=== PATIENT | female | born 1970 | race Caucasian/White ===

== ENCOUNTER 2018-05-03 07:24 | Emergency (ER) | payer OTHER, SELFPAY ==
[2018-05-03 07:25] VITALS: BP 141/92; PULSE 81; RESP 18; TEMP 36.7; O2SAT 100; BMI 21.3
--- NOTE | 2018-05-03 07:51 | EKG12_ITS ---
Test Reason : CP Blood Pressure : / mmHG Vent. Rate : 067 BPM Atrial Rate : 067 BPM P-R Int : 136 ms QRS Dur : 080 ms QT Int : 380 ms P-R-T Axes : 075 034 048 degrees QTc Int : 401 ms Normal sinus rhythm Normal ECG Confirmed by SUSHIL GAY, ALFA ([id number]), digital editor TERESITA MCGARRY ([id number]) on 05/06/2018 1:14:48 PM Referred By: RAPHAEL Confirmed By:ALFA LING MD
--- NOTE | 2018-05-03 07:51 | RAD_ITS ---
STUDY: X-RAY CHEST REASON FOR EXAM: Female, 47 years old. 12 hour history of chest pain. TECHNIQUE: Single AP portable view of the chest. Comparison is made with prior study dated October 04, 2013. COMPARISON: None. FINDINGS: The lungs are clear and expanded. There is no demonstrated pleural abnormality. Normal size heart. Normal mediastinum and wilberto. Normal visualized pulmonary arteries. Normal visualized aortic arch and descending thoracic aorta. Normal visualized thoracic spine. Normal visualized ribs, clavicles, and shoulders. There is no demonstrated abnormality of the visualized soft tissue structures of the upper abdomen. RAD/Chest 1 View (Portable) IMPRESSION: Normal x-ray examination of the chest. Electronically Signed: Anthony Tran MD at 8:31 EDT Tel [phone], Service support ,
[2018-05-03 08:00] LABS: Absolute Lymphocyte Count 2.56 X10^3/ul (0.83-4.51); Basophil# 0.08 X10^3/uL; Basophil% 0.9 % (0-1); Eosinophil# 0.25 X10^3/uL; Eosinophils% 2.8 % (0-5); Hematocrit 44.5 % (37-47); Hemoglobin 15.4 g/dl (12.0-15.0); Lymphocyte # 2.56 X10^3/ul (4.0); Lymphocyte % 28.8 % (19-41); Mean Corp Hgb Conc 34.6 g/gl (32-36); Mean Corpuscular Hgb 31.8 pg (27.0-32.0); Mean Corpuscular Volume 91.8 fL (81-99); Mean Platelet Vol. 9.1 fl (6.2-12.0); Monocyte% 11.2 % (0-10); Neutrophil # 4.99 X10^3/uL (2.7-7.7); Neutrophil % 56.2 % (47-70); Platelet Count 297 K/mm3 (150-450); RBC Distribution Width CV 12.9 % (11.6-14.6); RBC Distribution Width SD 43.2 fl (35.1-43.9); Red Blood Count 4.85 M/mm3 (4.2-5.4); White Blood Count 8.9 K/mm3 (4.4-11.0)
[2018-05-03 08:01] LABS: POSITIVE COUNT NO; POSITIVE DIFFERENTIAL NO; POSITIVE MORPHOLOGY NO
[2018-05-03] MEDS: Aspirin 81 MG TAB.CHEW 324 MG PO (08:06)
[2018-05-03 08:13] LABS: Anion Gap 8 (5-15); BUN 14 mg/dL (7-18); BUN/Creat Ratio 16.8 RATIO (10-20); Calcium,Total 9.2 mg/dL (8.5-10.1); Chloride 105 mmol/L (98-107); Creatinine, Serum 0.83 mg/dL (0.55-1.02); EST Glomerular Filtration Rate 78 mL/min (>60); Est Glom Filt Rate - Afr Amer 94 mL/min (>60); Estimated Creatinine Clearance 78.44 ml/min; Glucose 89 mg/dL (74-106); Potassium 3.6 mmol/L (3.5-5.1); Sodium Level 140 mmol/L (136-145)
--- NOTE | 2018-05-03 08:22 | ED.VISSUMM ---
- ER Visit Summary Date of Service: 05/03/18 Chief Complaint: Chest pain History of Present Illness: The patient is a 47 F presents with chest pain for the past 11 hours. It is mostly in her left shoulder and extending into the left side of the chest. It is an ache. It is not pleuritic. She has no PE risk factors. PERC negative. She has no shortness of breath or cough. She is a smoker and has a family history of cardiac disease. Patient has no medical problems. Physical Examination: Not appear in acute distress. Moist mucous membranes, no obvious facial deformity No C-spine tenderness supple neck. Regular rate and rhythm without any obvious murmurs there is left-sided chest wall and left shoulder tenderness to palpation which is quite reproducible and mechanical. Clear lungs bilaterally speaking in full sentences without any obvious respiratory distress Abdomen soft and nontender no guarding or rebound Moves all extremities without any difficulty or pain. Skin does not show any obvious rashes or lesions, no trauma. Alert oriented ?3 with no gross focal deficit Emergency Department Course and Treatment: Patient has a PARRIS score of 0. HAART score of 2. She is low risk for adverse cardiac events in the next 30 days. I will follow her up with cardiology. If her symptoms worsen she needs to return. At this time she is low risk, has reproducible pain without any PE risk factors she is quite trustworthy and if anything worsens or changes she will return. Disposition: Discharged in stable condition Impression: Chest pain Chest wall pain This note was generated with [employer] dictation software. It may contain incorrect words, spelling, and punctuation that were not noted in review of the chart prior to signing ED Disposition - Plan for ED Patient: Chief Complaint: Chest Pain Referrals: Yon Farnsworth DO [Primary Care Provider] -
--- NOTE | 2018-05-03 08:48 | ED.DEP ---
ED Disposition - Plan for ED Patient: Disposition: Home or Assisted Living Chief Complaint: Chest Pain Instructions: ED Chest Pain Atypical Unkn Cause Prescriptions: Naproxen [Naprosyn] 500 mg PO BID PRN #20 tab Referrals: Akhil Roberts MD [STAFF PHYSICIAN] - 3-5 Days
--- NOTE | 2018-05-03 08:51 | ED.DCSUM_ITS ---
- ER Visit Summary Date of Service: 05/03/18 Chief Complaint: [] History of Present Illness: The patient is a 47 F [] Physical Examination: [] Test Results: [] Emergency Department Course and Treatment: [] Treatment Plan: [] Disposition: [] Impression: [] This note was generated with [employer] dictation software. It may contain incorrect words, spelling, and punctuation that were not noted in review of the chart prior to signing ED Disposition - Plan for ED Patient: Disposition: Home or Assisted Living Chief Complaint: Chest Pain Instructions: ED Chest Pain Atypical Unkn Cause Prescriptions: Naproxen [Naprosyn] 500 mg PO BID PRN #20 tab Referrals: Akhil Roberts MD [STAFF PHYSICIAN] - 3-5 Days
[2018-05-03] MEDS: Ketorolac 30 MG/ML Syringe 15 MG IV (08:55)
[2018-05-03 09:02] VITALS: BP 133/79; PULSE 84; RESP 18
== END 2018-05-03 09:14 | disposition home or self-care (01) ==
PROVIDERS: Emergency Provider Emergency Medicine; Family Provider Student in an Organized Health Care Education/Training Program; PCP Student in an Organized Health Care Education/Training Program
DX: R07.89 Other chest pain (principal); F17.200 Nicotine dependence, unspecified, uncomplicated; Z82.49 Family history of ischemic heart disease and other diseases of the circulatory system
CPT/HCPCS: 71045; 80048; 84484; 85025; 93005; 96374; 99285; A4216

== ENCOUNTER → 2018-05-07 07:04 | Outpatient (CLI) | payer OTHER, SELFPAY ==
--- NOTE | 2018-05-07 14:16 | STRESSREP_ITS ---
Stress Test Report Exercise myocardial perfusion stress test. 47-year-old lady with a history of chest pain. Stress protocol: Resting EKG demonstrates sinus bradycardia with a rate of 55 bpm normal intervals and noted resting blood pressure is 122/72 mmHg. The patient exercised according to regular Arnol protocol for total duration of 10 minutes and 30 seconds completing 1 minute and 30 seconds of stage IV of the Arnol protocol. The maximum heart rate was 166 bpm which was 95% of maximum predicted heart rate the maximum workload was 12.5 metabolic equivalents. At rest there were no ST or T-wave changes noted suggest ischemia at peak exercise no ST or T-wave changes were noted suggest ischemia. No clinical angina was noted. The resting blood pressure is 122/72 with a peak blood pressure 160/70. Myocardial perfusion protocol. 11.1 mCi of technetium 99m sestamibi was injected at rest. The patient exercised according to Arnol protocol for 10 minutes and 30 seconds attaining 95 % of maximum predicted heart rate the maximum workload was 12.5 metabolic equivalents. At peak exercise 32.9 mCi of technetium 99m sestamibi was injected stress images were obtained stress and rest images were reconstructed and compared in the short axis vertical long and horizontal long axis. Gated images were also obtained pre- Perfusion SPECT analysis: Review of the stress images demonstrate normal uptake of tracer noted in all areas of the myocardium. The resting images similarly demonstrate normal uptake of tracer noted in all areas of the myocardium. No reversibility is noted suggest ischemia no previous infarct is noted. Gated SPECT analysis: The gated ejection fraction is noted to be 63%. Conclusion: Normal exercise myocardial perfusion stress test with no evidence of ischemia at a high workload. Preserved ejection fraction. Excellent functional capacity.
== END ==
LOC: CVS 07:04
PROVIDERS: Family Provider Student in an Organized Health Care Education/Training Program; PCP Student in an Organized Health Care Education/Training Program; Visit Provider Internal Medicine Cardiovascular Disease
DX: R07.9 Chest pain, unspecified (principal)
CPT/HCPCS: 78452; 93017; A9500; A4216

== ENCOUNTER 2018-07-26 21:11 | Emergency (ER) | payer OTHER, SELFPAY ==
[2018-07-26 21:12] VITALS: BP 139/90; PULSE 69; RESP 17; TEMP 36.7; O2SAT 98; BMI 21.8
--- NOTE | 2018-07-26 21:26 | EKG12_ITS ---
Test Reason : CP Blood Pressure : / mmHG Vent. Rate : 067 BPM Atrial Rate : 067 BPM P-R Int : 148 ms QRS Dur : 074 ms QT Int : 394 ms P-R-T Axes : 053 040 048 degrees QTc Int : 416 ms Normal sinus rhythm Normal ECG Confirmed by TATO GAY, KALIE ([id number]), supervising editor news reel TERESITA MCGARRY ([id number]) on 08/04/2018 3:34:55 PM Referred By: ELODIA/NANI Confirmed By:KALIE GODWIN MD
--- NOTE | 2018-07-26 21:26 | RAD_ITS ---
STUDY: X-RAY CHEST REASON FOR EXAM: Female, 47 years old. Chest pain TECHNIQUE: Frontal view of the chest COMPARISON: 05/03/2018 FINDINGS: The lungs are clear. There are no pleural effusions. There is no pneumothorax. The heart is normal in size. The visualized osseous structures are within normal limits. RAD/Chest 1 View (Portable) IMPRESSION: No acute thoracic pathology. Electronically Signed: Mick Love, at 22:00 EDT Tel , Service support ,
[2018-07-26 21:40] VITALS: O2SAT 98
[2018-07-26 21:51] LABS: Absolute Lymphocyte Count 2.54 X10^3/ul (0.83-4.51); Absolute Neutrophil Count 4.7 X10^3/uL (2.0-7.7); Basophil# 0.05 X10^3/uL; Basophil% 0.6 % (0-1); Eosinophil# 0.22 X10^3/uL; Eosinophils% 2.7 % (0-5); Hematocrit 36.3 % (37-47); Hemoglobin 12.7 g/dl (12.0-15.0); Lymphocyte # 2.54 X10^3/ul (4.0); Mean Corpuscular Hgb 31.6 pg (27.0-32.0); Mean Corpuscular Volume 90.3 fL (81-99); Monocyte# 0.71 X10^3/uL; Monocyte% 8.7 % (0-10); Neutrophil # 4.66 X10^3/uL (2.7-7.7); Neutrophil % 56.8 % (47-70); Platelet Count 232 K/mm3 (150-450); RBC Distribution Width CV 12.6 % (11.6-14.6); RBC Distribution Width SD 41.8 fl (35.1-43.9); Red Blood Count 4.02 M/mm3 (4.2-5.4); White Blood Count 8.2 K/mm3 (4.4-11.0)
[2018-07-26 21:52] LABS: POSITIVE COUNT NO; POSITIVE DIFFERENTIAL NO; POSITIVE MORPHOLOGY NO
[2018-07-26 22:09] LABS: Anion Gap 7 (5-15); BUN 10 mg/dL (7-18); BUN/Creat Ratio 14.5 RATIO (10-20); Calcium,Total 8.4 mg/dL (8.5-10.1); Chloride 109 mmol/L (98-107); Creatinine, Serum 0.69 mg/dL (0.55-1.02); EST Glomerular Filtration Rate 97 mL/min (>60); Est Glom Filt Rate - Afr Amer 117 mL/min (>60); Estimated Creatinine Clearance 94.36 ml/min; Glucose 92 mg/dL (74-106); Potassium 3.4 mmol/L (3.5-5.1); Sodium Level 141 mmol/L (136-145)
[2018-07-26] MEDS: Famotidine 20 MG Tablet 40 MG PO (22:46)
--- NOTE | 2018-07-26 22:48 | ED.VISSUMM ---
- ER Visit Summary Date of Service: 07/26/18 Chief Complaint: Chest pain History of Present Illness: The patient is a 47 F brought in by EMS for chest pain. Patient states she bent over and had onset of what felt like reflux. She did not feel well following this and sat down. She states she felt short of breath, some chest tightness, and her heart rate was approximately 100. She states her normal heart rate is in the 50s-60s. She did note some tingling in her hands. The symptoms lasted approximate 15 minutes and then completely resolved. Patient has not felt well for approximately last 6 weeks. She is been following up with [facility] for an ovarian cyst. Her only complaint at this time is some mild lower abdominal pain that she has had. Patient is a family history of [id number]. She has had stress test and cardiac cath in the past. She states she just had a stress test in April that was unremarkable. Physical Examination: Vital signs are unremarkable. Patient sitting upright in bed no acute distress. Head neck examination is normal. Heart is regular rate and rhythm. Lung sounds are clear. Abdomen is soft with no focal tenderness to palpation. Bowel sounds are noted throughout. Test Results: Portable chest x-ray shows no acute pathology. EKG is sinus at 67 with no sign of acute ischemia. CBC is unremarkable. Chemistry studies were potassium 3.4, otherwise normal. Troponin is less than 0.015. Emergency Department Course and Treatment: Patient was given aspirin with EMS. She had no further chest pain here. Patient has been taking ibuprofen intermittently for her ovarian cyst and states she did not eat anything today. I was able to review her stress test from May 07 of this year that was unremarkable. I discussed with patient and at bedside I believe she likely does have reflux. She be started on Prilosec. She is given 40 mEq of potassium chloride here. Patient will follow with her primary care physician. Treatment Plan: [] Disposition: Discharge Impression: GERD This note was generated with [employer] dictation software. It may contain incorrect words, spelling, and punctuation that were not noted in review of the chart prior to signing ED Disposition - Plan for ED Patient: Disposition: Home or Assisted Living Chief Complaint: Chest Pain Instructions: ED GERD Prescriptions: Omeprazole [Prilosec] 20 mg PO DAILY #20 capsule Referrals: Yon Farnsworth, [Primary Care Provider] - As soon as possible
--- NOTE | 2018-07-26 22:48 | ED.DEP ---
ED Disposition - Plan for ED Patient: Disposition: Home or Assisted Living Chief Complaint: Chest Pain Instructions: ED GERD Prescriptions: Omeprazole [Prilosec] 20 mg PO DAILY #20 capsule Referrals: Yon Farnsworth DO [Primary Care Provider] - As soon as possible
[2018-07-26 22:58] VITALS: BP 125/80; PULSE 75; RESP 15; O2SAT 98
== END 2018-07-26 23:04 | disposition home or self-care (01) ==
PROVIDERS: Emergency Medicine; Emergency Provider Emergency Medicine; Family Provider Student in an Organized Health Care Education/Training Program; PCP Student in an Organized Health Care Education/Training Program
DX: K21.9 Gastro-esophageal reflux disease without esophagitis (principal); Z72.0 Tobacco use
CPT/HCPCS: 71045; 80048; 84484; 85025; 93005; 99285; A4216

== ENCOUNTER 2018-09-09 08:34 | Day surgery (SDC) | payer OTHER, SELFPAY ==
[2018-09-09] VITALS (8 sets, daily range): BP systolic 120–154; BP diastolic 72–86; PULSE 52–59; RESP 16; TEMP 36.3–36.9; O2SAT 99–100; BMI 21.4
[2018-09-09 08:55] LABS: Internal QC Validated? YES +Cl - CLEAR BKGD; Pregnancy, Urine Negative Negative
[2018-09-09 09:02] LABS: Hematocrit 43.8 % (37-47); Hemoglobin 15.2 g/dl (12.0-15.0); Mean Corp Hgb Conc 34.7 g/gl (32-36); Mean Corpuscular Hgb 31.9 pg (27.0-32.0); Mean Corpuscular Volume 91.8 fL (81-99); Mean Platelet Vol. 8.8 fl (6.2-12.0); Platelet Count 296 K/mm3 (150-450); RBC Distribution Width CV 12.8 % (11.6-14.6); RBC Distribution Width SD 42.4 fl (35.1-43.9); Red Blood Count 4.77 M/mm3 (4.2-5.4); White Blood Count 6.9 K/mm3 (4.4-11.0)
[2018-09-09 09:03] LABS: Scan Indicated on CBC? Y/N NO
--- NOTE | 2018-09-09 10:25 | FALS_PTH ---
PATIENT: NORMA ROCHA LOC: [facility] – [place] U#:[id number] AGE/SX: 48/F ROOM: RE09/09/[address]: Dr. Alicia Crawford, MDDOB: 1970 BED: DIS: 09/09/2018 SPEC #: [id number] RECD: 09/09/18 12:33 STATUS: ELIZABET REStefani #: [id number] MARIA ISABEL: 09/09/18 10:[address]: Alicia Crawford DEPT: SURGICAL PATHOLOGY RECD BY: Stacie Houston ENTERED: 09/09/18 15:44 SP TYPE: FALL TUBES OTHR DR: Dr. Yon Farnsworth DO Tissues: Fallopian tube Procedures: Surgery Specimen Level II HEADER OPERATION: Laparoscopic bilateral salpingectomy PRE-OP DIAGNOSIS: Pelvic pain, right ovarian cyst, hydrosalpinx TISSUE SUBMITTED: Bilateral fallopian tubes MICROSCOPIC DIAGNOSIS Bilateral fallopian tube, salpingectomy: Larger fallopian tube - hydrosalpinx. Smaller fallopian tube - no pathologic diagnosis. Paratubal cyst. ROBE:lucien 09/10/18 MICROSCOPIC DESCRIPTION Slides are reviewed. GROSS DESCRIPTION Received in fixative is one container labeled with the patient's name and designated bilateral fallopian tubes. The specimen consists of bilateral fallopian tubes including fimbrial ends, One of the fallopian tubes measure 5 cm in length and up to 1 cm in diameter. The second fallopian tube measures 3 cm in length and 1 cm in diameter. Also present in the container is a cyst measuring 2 x 1 x 0.1 cm. The attached portion of the fallopian tube to the cyst measures 0.8 cm in length and 0.3 cm in diameter. Section of the larger fallopian tube showed dilated lumen filled with clear fluid. The second fallopian tube do not reveal any mass lesion. [employer] sections are submitted in 4 cassettes as follows: 1 & 2 - larger fallopian tube, 3 & 4- smaller fallopian tube and paratubal cyst, entirely submitted. /ROBE:lucien 09/09/18 TC: 5 CPT: 95727 x2
[2018-09-09] MEDS: Bupivacaine Mpf 0.5% 30 ML VIAL (12:20)
--- NOTE | 2018-09-09 12:31 | PCM.OPRPT ---
Report of Operation Date of Procedure: 09/09/18 Pre-Operative Diagnosis: right hydrosalpinx, right ovarian cyst Post-Operative Diagnosis: bilateral hydrosalpinx, right paratubal cyst, omental adhesions Surgery/Procedure Performed:: laparascopic bilateral salpingectomy, lysis of adhesions Description of Surgical Findings:: Omental adhesions to anterior abdominal wall. Large bilateral hydrosalpinx. NOrmal ovaries . Type of Anesthesia:: General Specimen's removed: Bilateral fallopian tubes, right paratubal cyst Estimated Blood Loss (mL): 10 Fluids Replaced: 1000cc Description of Procedure: Operative note: After informed consent was obtained patient was taken to the operating room she was placed in supine position she was given anesthesia. She was then placed in the [facility] stirrups and she was prepped and draped in normal sterile fashion. Bladder was drained prior to the start of procedure approximately 100 cc of clear yellow urine was expelled. At this time attention was turned to the vaginal portion where weighted speculum placed at posterior fornix vagina single-tooth tenaculum was used to gently grasp the internal the cervix. unable to dilate and sound uterus. acorn Uterine manipulator was placed without difficulty. Legs then placed in parallel with the abdomen and the weighted speculum was removed. 2 towel clamps were placed superior to umbilicus. After Marcaine was injected in umbilicus a small incision was made and a 5 mm trocar was placed under direct visualization. CO2 gas was used to insufflate the intra-abdominal cavity. Upon inspection omental adhesions to anterior abdominal wall, bilateral large hydrosalpinx, and small right paratubal cyst. ovaries were normal. . At this time then the LLQ port and RRLQ port placed again Marcaine was injected small incision was made a knife and the 5 mm trocars were placed. The omental adhesions were taken down with ligasure. The tubes were adherent and difficult to assess - however with gentle dissection using maryland ligasure i was able to coagulate and ligate entire tube. due to how large they were i was unable to remove them thru 5mm port- a 10mm endocatch bag was placed bluntly thru umbilical incision after it was extended- tissue placed in bag and bag removed intact. Good hemostasis was appreciated. At this time procedure was deemed complete successful. Elmer Bryant was used in umbilical incision with 0 vicryl suture to close fascia. The gas was desufflated on from the intra-abdominal cavity. The trochars were removed. Skin was closed using 4-0 Monocryl in a subcutaneous fashion. Dermabond glue was placed. Instrument lap and needle counts were correct ?2. The uterine manipulator was removed. Vaginal sweep was performed it was negative. There were no complications anticipated normal postoperative course for this patient. - Complications none - Admit VTE Documentation VTE Present on Admission: Yes VTE Mechan Device Prophylaxis: SCD's VTE Pharm Prophylaxis ordered?: No
--- NOTE | 2018-09-09 12:39 | OP.PCM_ITS ---
Report of Operation Date of Procedure: 09/09/18 Pre-Operative Diagnosis: right hydrosalpinx, right ovarian cyst Post-Operative Diagnosis: bilateral hydrosalpinx, right paratubal cyst, omental adhesions Surgery/Procedure Performed:: laparascopic bilateral salpingectomy, lysis of adhesions Description of Surgical Findings:: Omental adhesions to anterior abdominal wall. Large bilateral hydrosalpinx. NOrmal ovaries . Type of Anesthesia:: General Specimen's removed: Bilateral fallopian tubes, right paratubal cyst Estimated Blood Loss (mL): 10 Fluids Replaced: 1000cc Description of Procedure: Operative note: After informed consent was obtained patient was taken to the operating room she was placed in supine position she was given anesthesia. She was then placed in the [facility] stirrups and she was prepped and draped in normal sterile fashion. Bladder was drained prior to the start of procedure approximately 100 cc of clear yellow urine was expelled. At this time attention was turned to the vaginal portion where weighted speculum placed at posterior fornix vagina single-tooth tenaculum was used to gently grasp the internal the cervix. unable to dilate and sound uterus. acorn Uterine manipulator was placed without difficulty. Legs then placed in parallel with the abdomen and the weighted speculum was removed. 2 towel clamps were placed superior to umbilicus. After Marcaine was injected in umbilicus a small incision was made and a 5 mm trocar was placed under direct visualization. CO2 gas was used to insufflate the intra-abdominal cavity. Upon inspection omental adhesions to anterior abdominal wall, bilateral large hydrosalpinx, and small right paratubal cyst. ovaries were normal. . At this time then the LLQ port and RRLQ port placed again Marcaine was injected small incision was made a knife and the 5 mm trocars were placed. The omental adhesions were taken down with ligasure. The tubes were adherent and difficult to assess - however with gentle dissection using maryland ligasure i was able to coagulate and ligate entire tube. due to how large they were i was unable to remove them thru 5mm port- a 10mm endocatch bag was placed bluntly thru umbilical incision after it was extended- tissue placed in bag and bag removed intact. Good hemostasis was appreciated. At this time procedure was deemed complete successful. Elmer Bryant was used in umbilical incision with 0 vicryl suture to close fascia. The gas was desufflated on from the intra- abdominal cavity. The trochars were removed. Skin was closed using 4-0 Monocryl in a subcutaneous fashion. Dermabond glue was placed. Instrument lap and needle counts were correct ?2. The uterine manipulator was removed. Va ginal sweep was performed it was negative. There were no complications anticipated normal postoperative course for this patient. - Complications none - Admit VTE Documentation VTE Present on Admission: Yes VTE Mechan Device Prophylaxis: SCD's VTE Pharm Prophylaxis ordered?: No
--- NOTE | 2018-09-09 12:43 | DCINST_ITS ---
Discharge Diet: No Restrictions, - - Increase fluid intake for 48 hours. Discharge Activity: Return to Normal Activity, May Drive - when you are no longer taking narcotic pain medications., May Shower, May Take a Tub Bath - in 7 days., - - Ambulate often the next week after surgery. May resume sexual activity in: 2 weeks Lifting Restrictions: 20 Additional Activity Instructions:: Nothing in the vagina for the next 5 days. Call your doctor if your incision/area has: Continuous Slow Oozing, Sudden Increased Bleeding, Increased Pain/ Swelling, Increased Redness, Foul Smelling Discharge, Swelling at the incision site Call your doctor if you observe: Fever of 101 or Higher, Using more than one pad per hour Cleanse incision/area with: - - you have skin glue on incision sites- do not pick off. ok for water and soap to run over them and dab dry. Allergies/Adverse Reactions: Allergies codeine Allergy (Verified 09/06/18 15:32) Hives fentanyl Allergy (Verified 09/06/18 15:32) Shortness of breath Medications to take at Discharge Bupropion HCl [Wellbutrin Xl] 125 mg PO PRN PRN 07/26/18 Ibuprofen 200 mg PO PRN PRN 07/26/18 Omeprazole [Prilosec] 20 mg PO DAILY #20 capsule 07/26/18 Multivitamin [Multiple Vitamins] 1 each PO DAILY 09/06/18 Primary Care Physician: Yon Farnsworth DO [Primary Care Provider] - Test Results: Test results from this visit will be discussed in further detail at your follow- up appointment, if applicable. Please Follow Up With: Alicia Crawford MD When: as scheduled
[2018-09-09] MEDS: HYDROcodone Bitartrate/Apap 5/325 Tablet PO (14:12)
== END 2018-09-09 14:50 | disposition home or self-care (01) ==
LOC: SDC 08:34 → AC 08:35
PROVIDERS: Family Provider Student in an Organized Health Care Education/Training Program; PCP Student in an Organized Health Care Education/Training Program; Referring Provider Obstetrics & Gynecology; Visit Provider Obstetrics & Gynecology
PROC: (CPT 58661; principal; 2018-09-09 10:10)
DX: N83.8 Other noninflammatory disorders of ovary, fallopian tube and broad ligament (principal); N70.11 Chronic salpingitis; K66.0 Peritoneal adhesions (postprocedural) (postinfection); F17.210 Nicotine dependence, cigarettes, uncomplicated; Z79.899 Other long term (current) drug therapy
CPT/HCPCS: 00840; 58661; 36415; 81025; 85027; 88302; J7120; J2405

== ENCOUNTER 2018-09-22 13:36 | Emergency (ER) | payer OTHER, SELFPAY ==
[2018-09-09 09:03] VITALS: BMI 21.4
[2018-09-22 13:37] VITALS: BP 143/82; PULSE 69; RESP 17; TEMP 36.7; O2SAT 98; BMI 21.7
--- NOTE | 2018-09-22 13:57 | CT_ITS ---
STUDY: CT ABDOMEN AND PELVIS WITH CONTRAST REASON FOR EXAM: Female, 48 years old. Upper abdominal pain after recent surgery RADIATION DOSAGE (If Supplied By Facility): CTDIvol = ( 17.90 ) mGy, DLP = ( 611.19 ) mGycm TECHNIQUE: Transaxial images were obtained from the dome of the diaphragm to the symphysis pubis without oral contrast. 100 ml of Isovue 300 contrast was administered. Sagittal and coronal images were reconstructed. Individualized dose optimization techniques were used for this CT. COMPARISON: 12/03/16 FINDINGS: The visualized lung bases are unremarkable. The visualized portions of the heart are within normal limits. Liver is unremarkable aside from a stable 2 cm cyst in the right lobe. Normal gallbladder and extrahepatic biliary system. Normal spleen. Normal pancreas. Normal bilateral adrenal glands. Normal right kidney. Normal left kidney. Normal visualized stomach. Normal small intestine. Normal colon. The appendix is visualized and appears normal. Normal abdominal aorta. Normal inferior vena cava. Normal retroperitoneum. Normal urinary bladder. Uterus is still present, the endometrium cannot be accurately evaluated with CT. There are multiple dilated pelvic vessels consistent with pelvic congestion. Normal abdominal wall. Postsurgical changes noted at L5 and S1. CT/Abdomen/Pelvis W IV Cont ONLY IMPRESSION: No suspicious solid organomegaly, stable 2 cm right hepatic cyst Dilated pelvic vessels consistent with pelvic congestion No CT evidence of an acute inflammatory process Postsurgical changes at L5/S1 Electronically Signed: Ryan Whitaker MD at 15:33 EST , Service support ,
[2018-09-22 14:06] LABS: Mucous, Urine 0 SEEN /hpf (<or=2+); Red Blood Cells-Urine 0 SEEN /hpf (0-5); White Blood Cells 0 SEEN /hpf (0-5)
[2018-09-22] MEDS: Morphine 4 MG/ML Syringe IV (14:10)
[2018-09-22] MEDS: Ondansetron 4 MG/2 ML Vial IV (14:10)
[2018-09-22 14:12] LABS: Color, Urine Yellow (Yellow); Glucose, Dipstick Normal (Normal); Ketone-Dipstick Negative (Negative); Leukocyte Esterase-Dipstick Negative /ul (Negative); Nitrite-Dipstick Negative (Negative); Occult Blood-Urine 10 /ul (Negative); Protein-Dipstick Negative (Negative); Urine Bilirubin Dipstick Negative (Negative); Urine Clarity Clear (Clear); Urine Urobilinogen Normal (Normal)
[2018-09-22] MEDS: 0.9% Normal Saline 1,000 ML 1000 ML IV (14:13)
[2018-09-22 14:29] LABS: Bacteria RARE /hpf (None Seen); Squamous Epithelial Cells - UA 0-5 SEEN /hpf (5-10)
[2018-09-22 14:33] LABS: Absolute Neutrophil Count 4.1 X10^3/uL (2.0-7.7); Basophil# 0.05 X10^3/uL; Basophil% 0.7 % (0-1); Eosinophil# 0.14 X10^3/uL; Hematocrit 40.5 % (37-47); Hemoglobin 14.1 g/dl (12.0-15.0); Lymphocyte % 30.7 % (19-41); Mean Corp Hgb Conc 34.8 g/gl (32-36); Mean Corpuscular Hgb 31.6 pg (27.0-32.0); Mean Corpuscular Volume 90.8 fL (81-99); Mean Platelet Vol. 8.5 fl (6.2-12.0); Monocyte# 0.68 X10^3/uL; Monocyte% 9.5 % (0-10); Neutrophil # 4.08 X10^3/uL (2.7-7.7); Neutrophil % 56.8 % (47-70); POSITIVE COUNT NO; POSITIVE DIFFERENTIAL NO; POSITIVE MORPHOLOGY NO; Platelet Count 293 K/mm3 (150-450); RBC Distribution Width CV 12.8 % (11.6-14.6); RBC Distribution Width SD 42.5 fl (35.1-43.9); Red Blood Count 4.46 M/mm3 (4.2-5.4); White Blood Count 7.2 K/mm3 (4.4-11.0)
[2018-09-22 14:39] LABS: AST(SGOT) 22 U/L (15-37); Alanine Aminotransfer ALT/SGPT 27 U/L (13-56); Albumin, Serum 3.8 g/dL (3.2-5.0); Alkaline Phosphatase 80 U/L (45-117); Anion Gap 5 (5-15); BUN 11 mg/dL (7-18); BUN/Creat Ratio 12.2 RATIO (10-20); Calcium,Total 8.9 mg/dL (8.5-10.1); Chloride 109 mmol/L (98-107); EST Glomerular Filtration Rate 71 mL/min (>60); Est Glom Filt Rate - Afr Amer 85 mL/min (>60); Estimated Creatinine Clearance 71.56 ml/min; Globulin 3.7 g/dL (2.2-4.2); Glucose 79 mg/dL (74-106); Lipase 127 U/L (73-393); Potassium 3.6 mmol/L (3.5-5.1); Protein, Total 7.5 g/dL (6.4-8.2); Sodium Level 142 mmol/L (136-145)
--- NOTE | 2018-09-22 15:03 | ED.VISSUMM ---
- ER Visit Summary Date of Service: 09/22/18 Chief Complaint: Pain History of Present Illness: The patient is a 48 F nominal pain that started this morning. It starts in her epigastric area and radiates bilaterally over her upper abdomen. Nothing seemed to bring it on or make it worse. It is severe. Associated with some nausea. She had similar symptoms about 2 weeks ago. She had a CT that showed an ovarian cyst. She underwent a bilateral salpingectomy and had surgery for an ovarian cyst [address] Brown. She was doing well after the operation and was discharged the same day. She has not had any pain or symptoms since then. Despite the operation, she had recurrence of her pain. No other new or different symptoms. She does have a history of cholecystectomy. She is a smoker. Denies any chest pain or shortness of breath. 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 Denies any fevers. Physical Examination: Afebrile and vital signs unremarkable. Patient appears uncomfortable but is not toxic or in any distress. Heart regular rate and rhythm. Lungs clear bilaterally. Abdomen is tender in the epigastric region. No guarding or rebound. No distention or masses. Skin appears normal. Calves soft and supple. Test Results: CBC and CMP unremarkable. Lipase normal. Urinalysis unremarkable. CT pending. Emergency Department Course and Treatment: Patient was treated with fluids, morphine, and Zofran while awaiting results. CT showed nothing acute. She has a stable hepatic cyst, pelvic congestion, and postoperative changes. Nothing to explain her upper abdominal pain. I am not sure what is causing her abdominal pain and nausea. She has no chest pain, shortness of breath, vascular symptoms or findings. No sign of postoperative complications. 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 Patient was discussed with Dr. Grande. No further recommendations. Patient will follow-up with Dr. Brown tomorrow. She was given a prescription for [place] and Zofran. Return right away for new or worsening issues. Treatment Plan: As above Disposition: Discharged Impression: 1. Upper abdominal pain This note was generated with [employer] software. It may contain incorrect words, spelling, and punctuation that were not noted in review of the chart prior to signing ED Disposition - Plan for ED Patient: Chief Complaint: Abd Pain Referrals: Yon Farnsworth DO [Primary Care Provider] -
--- NOTE | 2018-09-22 15:06 | ED.DCSUM_ITS ---
- ER Visit Summary Date of Service: 09/22/18 Chief Complaint: Pain History of Present Illness: The patient is a 48 F nominal pain that started this morning. It starts in her epigastric area and radiates bilaterally over her upper abdomen. Nothing seemed to bring it on or make it worse. It is severe. Associated with some nausea. She had similar symptoms about 2 weeks ago. She had a CT that showed an ovarian cyst. She underwent a bilateral salpingectomy and had surgery for an ovarian cyst [address] Brown. She was doing well after the operation and was discharged the same day. She has not had any pain or symptoms since then. Despite the operation, she had recurrence of her pain. No other new or different symptoms. She does have a history of cholecystectomy. She is a smoker. Denies any chest pain or shortness of breath. Denies any urinary or REHAB SPECIALIST symptoms. Denies any fevers. Physical Examination: Afebrile and vital signs unremarkable. Patient appears uncomfortable but is not toxic or in any distress. Heart regular rate and rhythm. Lungs clear bilaterally. Abdomen is tender in the epigastric region. No guarding or rebound. No distention or masses. Skin appears normal. Calves soft and supple. Test Results: CBC and CMP unremarkable. Lipase normal. Urinalysis unremarkable. CT pending. Emergency Department Course and Treatment: Patient was treated with fluids, morphine, and Zofran while awaiting results. CT showed nothing acute. She has a stable hepatic cyst, pelvic congestion, and postoperative changes. Nothing to explain her upper abdominal pain. I am not sure what is causing her abdominal pain and nausea. She has no chest pain, shortness of breath, vascular symptoms or findings. No sign of postoperative complications. No or REHAB SPECIALIST symptoms. Patient was discussed with Dr. Grande. No further recommendations. Patient will follow-up with Dr. Brown tomorrow. She was given a prescription for [place] and Zofran. Return right away for new or worsening issues. Treatment Plan: As above Disposition: Discharged Impression: 1. Upper abdominal pain This note was generated with [email or web address] software. It may contain incorrect words, spelling, and punctuation that were not noted in review of the chart prior to signing ED Disposition - Plan for ED Patient: Chief Complaint: Abd Pain Referrals: Yon Farnsworth DO [Primary Care Provider] -
[2018-09-22 15:28] LABS: Pregnancy, Serum, hCG Quali. NEGATIVE Negative (0-9 Nonpreg)
--- NOTE | 2018-09-22 15:48 | ED.DEP ---
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
[2018-09-22 16:02] VITALS: BP 132/80; PULSE 585; PULSE 63; RESP 17; RESP 18; O2SAT 96; O2SAT 97
--- OUTSIDE RECORDS SUMMARY | 2018-11-17 23:47 | XMS RPT_ITS ---
:1970 Author Organization [place] Support Name Relationship Address Phone [facility] Unavailable [address] + [place] [address] DICKSON HAWKINS Unavailable [address] + [place], [place] [id number] [place] [address] [address] + [place] [address] DICKSON HAWKINS Unavailable [address] + [place] [address] [facility] Unavailable [address] + [place] [address] DICKSON HAWKINS Unavailable [address] + [place] [address] DICKSON HAWKINS Unavailable [address] + [place] [address] DICKSON HAWKINS Unavailable [address] [place] [address] NOT GIVEN Unavailable Unavailable Unavailable DICKSON HAWKINS Unavailable [address] + [place] [address] DICKSON HAWKINS Unavailable [address] [place] [address] NOT GIVEN Unavailable Unavailable Unavailable [facility] Unavailable [address] + [place] [address] LILLY HAWKINS Unavailable [address] + [place] [address] [facility] Unavailable [address] + [place] [address] LILLY HAWKINS Unavailable [address] + [place] [address] [facility] Unavailable [address] + [place] [address] LILLY HAWKINS Unavailable [address] + [place] [address] Care Team Providers Name Role Phone Vazquez, Yon Primary Care Unavailable Owen Arauz Attending Unavailable Akhil Roberts Attending Unavailable AlejandraAkhil hayes Referring Unavailable Vazquez, Yon Primary Care Unavailable Akhil Roberts Attending Unavailable Vazquez, Yon Primary Care Unavailable Emily Bass Attending Unavailable Neyhart-Jones, Alicia Attending Unavailable Neyhart-Jones, Alicia Referring Unavailable Vazquez, Yon Primary Care Unavailable Vazquez, Yon Primary Care Unavailable Delano Peace Attending Unavailable [facility] Admitting Unavailable [facility] Attending Unavailable [facility] Unavailable OLIVER GARCIA DO Admitting Unavailable OLIVER GARCIA DO Attending Unavailable OLIVER GARCIA DO Primary Care Unavailable VAZQUEZ, YON DO Consulting Unavailable VAZQUEZ, YON DO Referring Unavailable PROVIDER, UNKNOWN Consulting Unavailable OLIVER GARCIA DO Admitting Unavailable OLIVER GARCIA DO Attending Unavailable OLIVER GARCIA DO Primary Care Unavailable VAZQUEZYON DO Consulting Unavailable PROVIDER, UNKNOWN Consulting Unavailable VAZQUEZ, YON L Attending Unavailable VAZQUEZ, YON L Referring Unavailable VAZQUEZ, YON L Referring Unavailable VAZQUEZ, YON L Referring Unavailable NEYHART JONES, ALICIA Attending Unavailable VAZQUEZ, YON L Attending Unavailable VAZQUEZ, YON L Referring Unavailable SUSI REYEZ) Attending Unavailable VAZQUEZ, YON L Attending Unavailable VAZQUEZ, YON L Referring Unavailable LUPE GRANDE Attending Unavailable VAZQUEZ, YNO L Referring Unavailable NEYHART JONES, ALICIA Attending Unavailable VAZQUEZ, YON L Referring Unavailable GREGORY MCCARTHY Attending Unavailable WISWELL, LUPE Referring Unavailable NEYHART JONES, ALICIA Referring Unavailable VAZQUEZ, YON L Attending Unavailable VAZQUEZ, YON L Referring Unavailable NEYHART JONES, ALICIA Attending Unavailable VAZQUEZ, YON L Referring Unavailable NEYHART JONES, ALICIA Attending Unavailable NEYHART JONES, ALICIA Attending Unavailable VAZQUEZ, YON L Referring Unavailable PROBLEMS PROBLEMS DATE TYPE CONDITION / CODE ATTENDING STATUS SOURCE 09/24/2018 Active Abdominal NA Active [facility] distension [place] (gaseous) / Repository R14.0(ICD-10) 09/24/2018 Active Upper abdominal NA Active [facility] pain, unspecified [place] / R10.10(ICD-10) Repository 09/22/2018 Unknown R10.9 - Delano Peace Active [facility] abdominal pain / Hospital R10.9(ICD-10) Repository 08/16/2018 Active Encounter for NA Active [facility] screening [place] mammogram for Repository malignant neoplasm of breast / Z12.31(ICD-10) 06/04/2018 Unknown R07.9 - Chest Alejandra, Akhil Active [facility] pain, unspecified Community / R07.9(ICD-10) Hospital Repository 11/18/2017 Admitting Encounter for JOSE ANTONIO, POMERENE Active Jose Antonio Pomerene Diagnosis [facility] examination Repository without abnormal findings / Z0000(ICD-10) 11/18/2017 Principle Encounter for JOSE ANTONIO, POMERENE Active Jose Antonio Pomerene Diagnosis [facility] examination Repository without abnormal findings / Z0000(ICD-10) 10/30/2017 Active Dyspnea, NA Active [facility] unspecified / [place] R06.00(ICD-10) Repository 10/30/2017 Active Unknown / GEORGE, Active [facility] UNK(Unknown) YON Menezes [place] Repository PROCEDURES PROCEDURES No Procedure Records FoundRESULTS RESULTS PROGRESS Observed: 09/24/2018 Status: COMPLETED Source: [place] 2:05 PM [facility] REPOSITORY HNO ID: [id number] Author: Taya Garay LPN Service: (none) Author Type: (none) Type: Progress Notes Filed: 09/24/2018 2:06 PM Note Text: Patient presents for Lactose Intolerance testing. Baseline lab levels completed at lab and Lactose (Lactose Monohydrate Powder 50grams in 400mL water) administered to patient at 2:04pm. Tolerated well. LOT # [id number] EXP 03/02/2019 Taya Garay LPN LACTOSE TOLERANCE Collected: 09/24/2018 Status: F Source: [place] 1:57 PM [facility] REPOSITORY TYPE CODE TESTS RESULT OUT OF REFERENCE UNITS RANGE LAB GLUL0 74-99 mg/dL Glucose, 77 Fasting LAB GLUL30 mg/dL Glucose, 30 91 min Result Comment: Normal response is increase in glucose >20 mg/dL above fasting value. LAB GLUL60 mg/dL Glucose, 60 min 92 Result Comment: Normal response is increase in glucose >20 mg/dL above fasting value. LAB GLUL90 mg/dL Glucose, 90 min 82 Result Comment: Normal response is increase in glucose >20 mg/dL above fasting value. LAB GLULH2 mg/dL Glucose, 120 min 78 Result Comment: Normal response is increase in glucose >20 mg/dL above fasting value. Performed By: #### LACTT #### [facility] [address] [place] [address] CNNURSE Observed: 09/24/2018 Status: COMPLETED Source: [place] 1:45 PM [facility] REPOSITORY Nurse Visit (FAMPWS) NORMA HAWKINS ([id number]) 1970 F Date Time Provider Department 09/24/18 1:45 PM [facility] NURSE FAMPWS During your visit today, we recorded the following information about you: Taya Garay LPN 09/24/2018 2:06 PM Signed Patient presents for Lactose Intolerance testing. Baseline lab levels completed at lab and Lactose (Lactose Monohydrate Powder 50grams in 400mL water) administered to patient at 2:04pm. Tolerated well. LOT # [id number] EXP 03/02/2019 Taya Garay LPN Referring Provider: YON VAZQUEZ [[id number]] Allergies As of Date: 09/24/2018 Noted Allergy Reaction CODEINE 12/23/2011 4 - Hives FENTANYL 12/23/2011 14 - Other: See Comments Comments: Slow heart rate shallow resp. Date Reviewed: 09/23/2018 Reviewed by: Sana Byrd Ma - Fully Assessed Reason for Visit: Lactose Tolerance Testing [Other] Visit Diagnoses:Bloating [R14.0] Upper abdominal pain [R10.10] Order(s):LACTOSE TOLERANCE [SQLACTT] Order #: [id number] Prescriptions as of 09/24/2018 Sig: IBUPROFEN 600 MG TABLET Take 1 tablet by mouth every * MULTI-VITAMIN ORAL Take by mouth. BUPROPION XL 150 MG TAB Take 1 tablet by mouth once d* OMEPRAZOLE 20 MG CAPSULE,MARLA* Take 1 capsule by mouth daily* NAPROXEN 500 MG TABLET Take 500 mg by mouth twice da* ALBUTEROL SULFATE HFA 90 MCG/* Inhale 2 Puffs as instructed * OLIVE OIL ORAL Take 4,000 mg by mouth once d* ONDANSETRON HCL 4 MG TABLET Take 1 tablet by mouth once d* IBUPROFEN 200 MG TABLET Take 200 mg by mouth every 6 * Problem List As Of Date 09/24/2018 Noted Resolved PMDD (premenstrual dysphoric disorder) [F32.81] INVALID FOR*05/25/2013 Breast hypertrophy in female [N62] INVALID FOR* S/P endometrial ablation [Z98.890] INVALID FOR* Microscopic hematuria [R31.29] INVALID FOR* Left pelvic adnexal fluid collection [R68.89] INVALID FOR* Pelvic pain [R10.2] INVALID FOR* Encounter Status:Closed by TAYA GARAY LPN on 09/24/18 ENRIQUE Observed: 09/23/2018 Status: COMPLETED Source: [place] 8:20 AM [facility] REPOSITORY Office Visit (WOOB) NORMA HAWKINS ([id number]) 1970 F Date Time Provider Department 09/23/18 8:20 AM ALICIA SLATER During your visit today, we recorded the following information about you: Blood pressure Weight 98/66 60.8 kg Alicia Crawford MD 09/23/2018 8:41 AM Signed SUBJECTIVE: 48 year old female presents for 2 week post-op exam. Pt reports went to ER yesterday for severe pain- all negative work up. Feels like pain prior to surgery- will continue with GI consultation OBJECTIVE: Incision: Dry and intact, without redness Abdomen: Soft, No palpable masses and Mild tenderness- no rebound, no guarding PLAN: RTO for annual exams and PRN GI follow up I have reviewed and updated past medical and surgical history, medications and allergies. Alicia Crawford MD Referring Provider: SELF [200] Allergies As of Date: 09/23/2018 Noted Allergy Reaction CODEINE 12/23/2011 4 - Hives FENTANYL 12/23/2011 14 - Other: See Comments Comments: Slow heart rate shallow resp. Date Reviewed: 09/23/2018 Reviewed by: Sana Byrd Ma - Fully Assessed Reason for Visit: Post-Op Visit [1236] Primary Visit Diagnosis:Post-operative state [Z98.890] Prescriptions as of 09/23/2018 Sig: IBUPROFEN 600 MG TABLET Take 1 tablet by mouth every * MULTI-VITAMIN ORAL Take by mouth. BUPROPION XL 150 MG TAB Take 1 tablet by mouth once d* OMEPRAZOLE 20 MG CAPSULE,MARLA* Take 1 capsule by mouth daily* NAPROXEN 500 MG TABLET Take 500 mg by mouth twice da* ALBUTEROL SULFATE HFA 90 MCG/* Inhale 2 Puffs as instructed * OLIVE OIL ORAL Take 4,000 mg by mouth once d* ONDANSETRON HCL 4 MG TABLET Take 1 tablet by mouth once d* IBUPROFEN 200 MG TABLET Take 200 mg by mouth every 6 * Problem List As Of Date 09/23/2018 Noted Resolved PMDD (premenstrual dysphoric disorder) [F32.81] INVALID FOR*05/25/2013 Breast hypertrophy in female [N62] INVALID FOR* S/P endometrial ablation [Z98.890] INVALID FOR* Microscopic hematuria [R31.29] INVALID FOR* Left pelvic adnexal fluid collection [R68.89] INVALID FOR* Pelvic pain [R10.2] INVALID FOR* Encounter Status:Closed by ALICIA JONES MD on 09/23/18 PROGRESS Observed: 09/23/2018 Status: COMPLETED Source: [place] 8:17 AM [facility] REPOSITORY HNO ID: [id number] Author: Alicia Jones Service: (none) Author Type: Physician Type: Progress Notes Filed: 09/23/2018 8:41 AM Note Text: SUBJECTIVE: 48 year old female presents for 2 week post-op exam. Pt reports went to ER yesterday for severe pain- all negative work up. Feels like pain prior to surgery- will continue with GI consultation OBJECTIVE: Incision: Dry and intact, without redness Abdomen: Soft, No palpable masses and Mild tenderness- no rebound, no guarding PLAN: RTO for annual exams and PRN GI follow up I have reviewed and updated past medical and surgical history, medications and allergies. Alicia Crawford MD DISCHARGE INSTRUCTION Observed: 09/22/2018 Status: F Source: [place] 4:13 PM [facility] REPOSITORY [facility] Medical Records Department [address] [place] [address] Discharge Instruction 09/22/18 1548 MR#: [id number] Acct: [id number] Name: NORMA HAWKINS Rep #: [id number] : 1970 48 From: Delano Peace MD PCP: Yon Hernandez DO Status: DEP ER ED Disposition - Plan for ED Patient: Chief Complaint: Abd Pain Instructions: ED Abdominal Pain Unkn Cause Prescriptions: Hydrocodone Bitart/Apap 5-325 [Parchman 5MG-325MG] 1 tab PO Q6H PRN PRN 3 Days #10 tab PRN Reason: Pain Ondansetron [Zofran Odt] 4 mg PO Q8H PRN PRN #10 tab PRN Reason: Nausea Additional Instructions: follow up with your buyer tobacco head What to do if you have Problems For any increased pain, shortness of breath, bleeding, nausea or vomiting, chest pain, or any unexpected problems, contact your Primary Care Provider. Call [facility] ([phone]) or report to the closest Emergency Room. Call 911 if necessary. 09/22/18 2551 <Electronically signed by Delano Peace MD> Date Delano Peace MD Cosigner Signature (If Indicated): Date CC: Yon Hernandez DO EMERGENCY DEPARTMENT Observed: 09/22/2018 Status: F Source: [place] SUMMARY 4:13 PM [facility] REPOSITORY [facility] Medical Records Department [address] [place] [address] Emergency Department Summary 09/22/18 1503 MR#: [id number] Acct: [id number] Name: NORMA HAWKINS Rep #: [id number] : 1970 48 From: Delano Peace MD PCP: Yon Hernandez DO Status: DEP ER - ER Visit Summary Date of Service: 09/22/18 Chief Complaint: Pain History of Present Illness: The patient is a 48 F nominal pain that started this morning. It starts in her epigastric area and radiates bilaterally over her upper abdomen. Nothing seemed to bring it on or make it worse. It is severe. Associated with some nausea. She had similar symptoms about 2 weeks ago. She had a CT that showed an ovarian cyst. She underwent a bilateral salpingectomy and had surgery for an ovarian cyst [address] Jones. She was doing well after the operation and was discharged the same day. She has not had any pain or symptoms since then. Despite the operation, she had recurrence of her pain. No other new or different symptoms. She does have a history of cholecystectomy. She is a smoker. Denies any chest pain or shortness of breath. Denies any urinary or [employer] symptoms. Denies any fevers. Physical Examination: Afebrile and vital signs unremarkable. Patient appears uncomfortable but is not toxic or in any distress. Heart regular rate and rhythm. Lungs clear bilaterally. Abdomen is tender in the epigastric region. No guarding or rebound. No distention or masses. Skin appears normal. Calves soft and supple. Test Results: CBC and CMP unremarkable. Lipase normal. Urinalysis unremarkable. CT pending. Emergency Department Course and Treatment: Patient was treated with fluids, morphine, and Zofran while awaiting results. CT showed nothing acute. She has a stable hepatic cyst, pelvic congestion, and postoperative changes. Nothing to explain her upper abdominal pain. I am not sure what is causing her abdominal pain and nausea. She has no chest pain, shortness of breath, vascular symptoms or findings. No sign of postoperative complications. No or [employer] symptoms. Patient was discussed with Dr. Grande. No further recommendations. Patient will follow-up with Dr. Jones tomorrow. She was given a prescription for [place] and Zofran. Return right away for new or worsening issues. Treatment Plan: As above Disposition: Discharged Impression: 1. Upper abdominal pain This note was generated with [employer] dictation software. It may contain incorrect words, spelling, and punctuation that were not noted in review of the chart prior to signing ED Disposition - Plan for ED Patient: Chief Complaint: Abd Pain Referrals: Yon Vazquez, [Primary Care Provider] - What to do if you have Problems For any increased pain, shortness of breath, bleeding, nausea or vomiting, chest pain, or any unexpected problems, contact your Primary Care Provider. Call [facility] ([phone]) or report to the closest Emergency Room. Call 911 if necessary. 09/22/18 1613 <Electronically signed by Delano Peace MD> Date Delano Peace MD Cosigner Signature (If Indicated): Date CC: Yon Hernandez DO CBC W/DIFF, AUTOMATED Collected: 09/22/2018 Status: F Source: [place] 2:10 PM [facility] REPOSITORY TYPE CODE TESTS RESULT OUT OF RANGE REFERENCE UNITS LAB L100.1000 4.4-11.0 K/mm3 Normal WBC 7.2 LAB L100.1200 4.2-5.4 M/mm3 Normal RBC 4.46 LAB L100.1300 12.0-15.0 g/dl Normal HGB 14.1 LAB L100.1400 37-47 % Normal HCT 40.5 LAB L100.1500 81-99 fL Normal MCV 90.8 LAB L100.1600 27.0-32.0 pg Normal MCH 31.6 LAB L100.1700 32-36 g/gl Normal MCHC 34.8 LAB L100.1810 11.6-14.6 % Normal RDW CV 12.8 LAB L100.1820 35.1-43.9 fl Normal RDW SD 42.5 LAB L100.1900 150-450 K/mm3 Normal PLT 293 LAB L100.2000 6.2-12.0 fl Normal MPV 8.5 LAB L100.2100 47-70 % Normal NEUT% 56.8 LAB L100.2200 19-41 % Normal LY% 30.7 LAB L100.2300 0-10 % Normal MONO% 9.5 LAB L100.2400 0-5 % Normal EO% 2.0 LAB L100.2500 0-1 % Normal BASO% 0.7 LAB L100.2550 0.0-0.9 % Normal IM GRAN % 0.300 Result Comment: IG% - Immature Granulocytes (promyelocytes, myelocytes and metamyelocytes) > 1% indicates that a LEFT SHIFT is Present. LAB L100.2620 2.0-7.7 X10 3/uL Normal Absolute Neut 4.1 LAB L100.2720 0.83-4.51 X10 3/ul Normal Absolute Lymph 2.20 Performed By: #### L100.0100 #### [facility] [address] [place], [address] COMPREHENSIVE METABOLIC Collected: 09/22/2018 Status: F Source: [facility] 2:10 PM [facility] REPOSITORY TYPE CODE TESTS RESULT OUT OF RANGE REFERENCE UNITS LAB L501.0100 74-106 mg/dL Normal GLU 79 Result Comment: Please note revised GLUCOSE reference range effective 2017. LAB L501.1000 7-18 mg/dL Normal BUN 11 LAB L501.1100 0.55-1.02 mg/dL Normal CREAT,SERUM 0.90 Result Comment: The validity of the calculated GFR AND GFRAA in patients over 70 years has not been determined. Clinical correlation is essential. LAB L501.1110 >60 mL/min Normal EST GFR 71 Result Comment: Non- GFR Calc LAB L501.1115 >60 mL/min Normal EST GFR - AA 85 Result Comment: GFR Calc LAB L501.1255 ml/min Normal Estimated CRCL 71.56 LAB L501.1300 10-20 RATIO Normal BUN/CRE 12.2 LAB L501.1500 6.4-8. g/dL Normal 2 T PROT 7.5 LAB L501.1800 3.2-5. g/dL Normal 0 ALB 3.8 LAB L501.1950 2.2-4. g/dL Normal 2 GLOB 3.7 LAB L501.2000 0.9-2. RATIO Normal 4 A/G 1.0 LAB L501.2200 8.5-10 mg/dL Normal .1 CA 8.9 LAB L501.4100 15-37 U/L Normal AST 22 LAB L501.4305 45-117 U/L Normal ALK P 80 LAB L501.4405 13-56 U/L Normal ALT 27 LAB L501.4600 0.20-1 mg/dL Normal .00 T BILI 0.50 LAB L501.5300 136-14 mmol/L Normal 5 NA 142 LAB L501.5600 3.5-5. mmol/L Normal 1 K 3.6 LAB L501.5900 98-107 mmol/L High CL 109 LAB L501.6100 21.0-3 mmol/L Normal 2.0 CO2 28.0 LAB L501.6200 5-15 Normal GAP 5 Performed By: #### L500.4050, L501.2450 #### [facility] [address] [place], [place], [id number] LIPASE Collected: 09/22/2018 Status: F Source: [place] 2:10 PM [facility] REPOSITORY TYPE CODE TESTS RESULT OUT OF RANGE REFERENCE UNITS LAB L501.2450 73-393 U/L Normal LIPASE 127 Performed By: #### L500.4050, L501.2450 #### [facility] [address] [place], [place], [id number] ,SERUM,HCG QUALI. Collected: Status: C Source: [facility] [facility] 09/22/2018 2:10 PM [facility] REPOSITORY TYPE CODE TESTS RESULT OUT OF REFERENCE UNITS RANGE LAB L700.7000 0-9 Nonpreg Negative Normal HCGSQUAL NEGATIVE LAB L700.6700 =>Qualitative mIU/mL Normal HCG Qual 2 triggr Performed By: #### L700.6800 #### [facility] [address] [place], [address] URINALYSIS, COMPLETE Collected: 09/22/2018 Status: F Source: [place] 2:00 PM [facility] REPOSITORY Order Comment: How was Urine Obtained? CLAIM INSPECTOR TO SPECIFY TYPE CODE TESTS RESULT OUT OF RANGE REFERENCE UNITS LAB L400.3000 Yellow COLOR Normal Yellow LAB L400.3050 Clear Normal CLARITY Clear LAB L400.3200 Normal mg/dl Normal GLUCOSE, UR Normal LAB L400.3300 Negative mg/dL Normal BILIRUBIN URINE Negative LAB L400.3400 Negative mg/dl Normal KETONE UR Negative LAB L400.3465 1.002-1.030 Normal SP.GR. DIPSTX 1.010 LAB L400.3550 5.0 - 8.0 pH UR Normal 8.0 LAB L400.3600 Negative mg/dl PROT Normal DIPSTX Negative LAB L400.3700 Normal mg/dl Normal UROBILI Normal LAB L400.3750 Negative Normal NITRITE UR Negative LAB L400.3780 Negative /ul High 10 OCCULT BLOOD-UR LAB L400.3800 Negative /ul LEUK Normal ESTERASE Negative LAB L400.4050 0-5 /hpf WBC 0 Normal SEEN LAB L400.4100 0-5 /hpf 0 Normal RBC-UA SEEN LAB L400.4150 5-10 /hpf SQUAM Normal EPI 0-5 SEEN LAB L400.4300 None Seen /hpf Normal BACTERIA RARE LAB L400.4350 <or=2+ /hpf 0 Normal MUCUS, URINE SEEN Performed By: #### L400.0001 #### [facility] [address] [place], [address] ABDOMEN/PELVIS W IV CONT Observed: 09/22/2018 Status: F Source: [place] ONLY 1:58 PM [facility] REPOSITORY [facility] Imaging Services [address] [place] [address] Abdomen/Pelvis W IV Cont ONLY MR#: [id number] Acct: [id number] Name: AZALIA HAWKINSHANNA Aguilar Rep #: [id number] : 1970 F 48 From: Lilly Whitaker MD PCP: Yon Hernandez DO Status: REG ER Study: Abdomen/Pelvis W IV Cont ONLY Date of Exam: 09/22/18 Exam# [id number] Ordering Dr: Delano Peace MD STUDY: CT ABDOMEN AND PELVIS WITH CONTRAST REASON FOR EXAM: Female, 48 years old. Upper abdominal pain after recent surgery RADIATION DOSAGE (If Supplied By Facility): CTDIvol = ( 17.90 ) mGy, DLP = ( 611.19 ) mGycm TECHNIQUE: Transaxial images were obtained from the dome of the diaphragm to the symphysis pubis without oral contrast. 100 ml of Isovue 300 contrast was administered. Sagittal and coronal images were reconstructed. Individualized dose optimization techniques were used for this CT. COMPARISON: 12/03/16 FINDINGS: The visualized lung bases are unremarkable. The visualized portions of the heart are within normal limits. Liver is unremarkable aside from a stable 2 cm cyst in the right lobe. Normal gallbladder and extrahepatic biliary system. Normal spleen. Normal pancreas. Normal bilateral adrenal glands. Normal right kidney. Normal left kidney. Normal visualized stomach. Normal small intestine. Normal colon. The appendix is visualized and appears normal. Normal abdominal aorta. Normal inferior vena cava. Normal retroperitoneum. Normal urinary bladder. Uterus is still present, the endometrium cannot be accurately evaluated with CT. There are multiple dilated pelvic vessels consistent with pelvic congestion. Normal abdominal wall. Postsurgical changes noted at L5 and S1. CT/Abdomen/Pelvis W IV Cont ONLY IMPRESSION: No suspicious solid organomegaly, stable 2 cm right hepatic cyst Dilated pelvic vessels consistent with pelvic congestion No CT evidence of an acute inflammatory process Postsurgical changes at L5/S1 Electronically Signed: Ryan Whitaker MD at 15:33 EST , Service support , CC: Delano Peace MD; Yon Hernandez DO Entertainment Reporter: Signed DISCHARGE INSTRUCTION Observed: 09/09/2018 Status: F Source: [place] 12:43 PM [facility] REPOSITORY [facility] Medical Records Department [address] [place] [address] Instructions for Home/Discharge Instructions 09/09/18 1242 MR#: [id number] Acct: [id number] Name: NORMA HAWKINS Rep #: [id number] : 1970 48 From: Alicia Jones MD PCP: Yon Hernandez DO Status: REG RIC Discharge Diet: No Restrictions, - - Increase fluid intake for 48 hours. Discharge Activity: Return to Normal Activity, May Drive - when you are no longer taking narcotic pain medications., May Shower, May Take a Tub Bath - in 7 days., - - Ambulate often the next week after surgery. May resume sexual activity in: 2 weeks Lifting Restrictions: 20 Additional Activity Instructions:: Nothing in the vagina for the next 5 days. Call your doctor if your incision/area has: Continuous Slow Oozing, Sudden Increased Bleeding, Increased Pain/ Swelling, Increased Redness, Foul Smelling Discharge, Swelling at the incision site Call your doctor if you observe: Fever of 101 or Higher, Using more than one pad per hour Cleanse incision/area with: - - you have skin glue on incision sites- do not pick off. ok for water and soap to run over them and dab dry. Allergies/Adverse Reactions: Allergies codeine Allergy (Verified 09/06/18 15:32) Hives fentanyl Allergy (Verified 09/06/18 15:32) Shortness of breath Medications to take at Discharge Bupropion HCl [Wellbutrin Xl] 125 mg PO PRN PRN 07/26/18 Ibuprofen 200 mg PO PRN PRN 07/26/18 Omeprazole [Prilosec] 20 mg PO DAILY #20 capsule 07/26/18 Multivitamin [Multiple Vitamins] 1 each PO DAILY 09/06/18 Primary Care Physician: Yon Vazquez DO [Primary Care Provider] - Test Results: Test results from this visit will be discussed in further detail at your follow-up appointment, if applicable. Please Follow Up With: Alicia Crawford MD When: as scheduled 09/09/18 1243 <Electronically signed by Alicia Jones MD> Date Alicia Crawford MD CC: Yon Hernandez DO OPERATIVE REPORT Observed: 09/09/2018 Status: F Source: [place] 12:41 PM [facility] REPOSITORY [facility] Medical Records Department [address] [place] [address] Operative Report 09/09/18 1231 MR#: [id number] Acct: [id number] Name: NORMA HAWKINS Rep #: [id number] : 1970 48 From: Alicia Jones MD PCP: Yon Hernandez DO Status: REG [facility] Y Location: [place] [address] Report of Operation Date of Procedure: 09/09/18 Pre-Operative Diagnosis: right hydrosalpinx, right ovarian cyst Post-Operative Diagnosis: bilateral hydrosalpinx, right paratubal cyst, omental adhesions Surgery/Procedure Performed:: laparascopic bilateral salpingectomy, lysis of adhesions Description of Surgical Findings:: Omental adhesions to anterior abdominal wall. Large bilateral hydrosalpinx. NOrmal ovaries . Type of Anesthesia:: General Specimen's removed: Bilateral fallopian tubes, right paratubal cyst Estimated Blood Loss (mL): 10 Fluids Replaced: 1000cc Description of Procedure: Operative note: After informed consent was obtained patient was taken to the operating room she was placed in supine position she was given anesthesia. She was then placed in the [facility] and she was prepped and draped in normal sterile fashion. Bladder was drained prior to the start of procedure approximately 100 cc of clear yellow urine was expelled. At this time attention was turned to the vaginal portion where weighted speculum placed at posterior fornix vagina single-tooth tenaculum was used to gently grasp the internal the cervix. unable to dilate and sound uterus. acorn Uterine manipulator was placed without difficulty. Legs then placed in parallel with the abdomen and the weighted speculum was removed. 2 towel clamps were placed superior to umbilicus. After Marcaine was injected in umbilicus a small incision was made and a 5 mm trocar was placed under direct visualization. CO2 gas was used to insufflate the intra-abdominal cavity. Upon inspection omental adhesions to anterior abdominal wall, bilateral large hydrosalpinx, and small right paratubal cyst. ovaries were normal. . At this time then the LLQ port and RRLQ port placed again Marcaine was injected small incision was made a knife and the 5 mm trocars were placed. The omental adhesions were taken down with ligasure. The tubes were adherent and difficult to assess - however with gentle dissection using maryland ligasure i was able to coagulate and ligate entire tube. due to how large they were i was unable to remove them thru 5mm port- a 10mm endocatch bag was placed bluntly thru umbilical incision after it was extended- tissue placed in bag and bag removed intact. Good hemostasis was appreciated. At this time procedure was deemed complete successful. Elmer Bryant was used in umbilical incision with 0 vicryl suture to close fascia. The gas was desufflated on from the intra-abdominal cavity. The trochars were removed. Skin was closed using 4-0 Monocryl in a subcutaneous fashion. Dermabond glue was placed. Instrument lap and needle counts were correct 2. The uterine manipulator was removed. Vaginal sweep was performed it was negative. There were no complications anticipated normal postoperative course for this patient. - Complications none - Admit VTE Documentation VTE Present on Admission: Yes VTE Mechan Device Prophylaxis: SCD's VTE Pharm Prophylaxis ordered?: No 09/09/18 1241 <Electronically signed by Alicia Jones MD> Date Alicia Crawford MD CC: Alicia Crawford MD; DO Ba Hummel FALLOPIAN TUBES/STERILIZATION Observed: 09/09/2018 Status: F Source: [place] 10:25 AM [facility] REPOSITORY Patient: NORMA HAWKINS : 1970 (48/F) Acct Num: [id number] Phys: Yvette GAY,Alicia Unit Num: [id number] Loc: [facility] Specimen: [id number] Received: 09/09/18 - 1233 Spec Type: FALL TUBES TISSUES 1 TISSUES: Fallopian tube GROSS DESCRIPTION Received in fixative is one container labeled with the patient's name and designated bilateral fallopian tubes. The specimen consists of bilateral fallopian tubes including fimbrial ends, One of the fallopian tubes measure 5 cm in length and up to 1 cm in diameter. The second fallopian tube measures 3 cm in length and 1 cm in diameter. Also present in the container is a cyst measuring 2 x 1 x 0.1 cm. The attached portion of the fallopian tube to the cyst measures 0.8 cm in length and 0.3 cm in diameter. Section of the larger fallopian tube showed dilated lumen filled with clear fluid. The second fallopian tube do not reveal any mass lesion. Director Of Nursing sections are submitted in 4 cassettes as follows: 1 AND 2 - larger fallopian tube, 3 AND 4- smaller fallopian tube and paratubal cyst, entirely submitted. /ROBE:lucien 09/09/18 TC: 5 CPT: 84093 x2 HEADER OPERATION: Laparoscopic bilateral salpingectomy PRE-OP DIAGNOSIS: Pelvic pain, right ovarian cyst, hydrosalpinx TISSUE SUBMITTED: Bilateral fallopian tubes MICROSCOPIC DESCRIPTION Slides are reviewed. MICROSCOPIC DIAGNOSIS Bilateral fallopian tube, salpingectomy: Larger fallopian tube - hydrosalpinx. Smaller fallopian tube - no pathologic diagnosis. Paratubal cyst. ROBE:lucien 09/10/18 Signed Karl Allred 09/10/18 <signature on file> Performed By: #### PFAHOA #### [facility] [address] [place], [place], [address] CBC-COMPLETE BLOOD CNT Collected: 09/09/2018 Status: F Source: [place] NO DIFF 8:50 AM [facility] REPOSITORY TYPE CODE TESTS RESULT OUT OF RANGE REFERENCE UNITS LAB L100.1000 4.4-11.0 K/mm3 Normal WBC 6.9 LAB L100.1200 4.2-5.4 M/mm3 Normal RBC 4.77 LAB L100.1300 12.0-15.0 g/dl High HGB 15.2 LAB L100.1400 37-47 % Normal HCT 43.8 LAB L100.1500 81-99 fL Normal MCV 91.8 LAB L100.1600 27.0-32.0 pg Normal MCH 31.9 LAB L100.1700 32-36 g/gl Normal MCHC 34.7 LAB L100.1810 11.6-14.6 % Normal RDW CV 12.8 LAB L100.1820 35.1-43.9 fl Normal RDW SD 42.4 LAB L100.1900 150-450 K/mm3 Normal PLT 296 LAB L100.2000 6.2-12.0 fl Normal MPV 8.8 Performed By: #### L100.0500 #### [facility] [address] [place], [place], [address] ,URINE Collected: 09/09/2018 Status: F Source: [place] 8:47 AM [facility] REPOSITORY TYPE CODE TESTS RESULT OUT OF REFERENCE UNITS RANGE LAB L400.8000 Negative Normal HCGUQUAL Negative Result Comment: Very dilute urine specimens, as indicated by a low specific gravity, may not contain fulfillment representative levels of hCG. If is still suspected, a first morning urine specimen should be collected 48 hours later and tested. Performed By: #### L400.7600 #### [facility] [address] [place], [place], [address] HISTORY PHYSICAL Observed: 09/06/2018 Status: COMPLETED Source: [place] 2:13 PM [facility] REPOSITORY O ID: [id number] Author: Alicia Jones Service: (none) Author Type: Physician Type: HANDP Filed: 09/06/2018 2:17 PM Note Text: Norma Hawkins is a 48 year old female who presents for pre op visit. Pt is scheduled for Laparoscopic bilateral salpingectomy, possible right oophorectomy vs cystectomy. Pt has persistent abdominal discomfort- likely hydrosalpinx and right ovarian cyst. Pt denies any concerns today. Surgery is scheduled for 09/09/18. Consent obtained today. PAST MEDICAL HISTORY Diagnosis Date - Diverticulosis - S/P lumbar fusion L4/5 - Tobacco abuse disorder PAST SURGICAL HISTORY Procedure Laterality Date - EGD W/O OR W/BRUSH/WASH 02/14/16 EGD with mac - LAPAROSCOPIC CHOLEYCYSTECTOMY 11/26/2015 - LUMBAR SPINE FUSION COMBINED 2007 lumbar fusion L4-L5 - OVARIAN CYSTECTOMY 84 - REMOVAL OF TONSILS; AGE 12 OR OVER 83 - S BALLOON,UTERINE ABLATION [address] Sutton - TUBAL LIGATION, 89 FAMILY HISTORY Problem Relation Age of Onset - Hypertension Father - other (Lung Cancer) Father mets to brain - Heart Mother - Hypertension Mother - Kidney Disease Mother - Cervical Cancer Paternal Grandmother and ovarian - Breast Cancer Maternal Aunt - Kidney Disease Daughter hydronephrosis - Colon Cancer Other P-cousin - Cancer Paternal Uncle throat - other (Reilly's syndrome) Other Social History Marital status: Spouse name: Dickson Years of education: 11 Number of children: 4 Occupational History Occupation Employer Comment [employer] Social History Main Topics Smoking status: Current Every Day Smoker Packs/day: 1.00 Years: 27.00 Types: Cigarettes Start date: 11/16/1988 Last attempt to quit: 06/11/2017 Smokeless tobacco: Never Used Comment: 1/2 to 1 pack per day Alcohol use: Yes Comment: Occasionally Drug use: No Sexual activity: Yes control/protection: Tubal Ligation Comment: Ablation Current Outpatient Prescriptions: HYDROcodone-acetaminophen (NORCO) 5-325 mg per tablet Take 1 tablet by mouth every 6 hours as needed for Pain for up to 3 days. ibuprofen (MOTRIN) 600 mg tablet Take 1 tablet by mouth every 6 hours as needed. FOR PAIN. MULTI-VITAMIN ORAL Take by mouth. buPROPion XL (WELLBUTRIN XL) 150 mg 24 hr tablet Take 1 tablet by mouth once daily. omeprazole (PRILOSEC) 20 mg capsule Take 1 capsule by mouth daily before breakfast. 1/2 hr before meal. naproxen (NAPROSYN) 500 mg tablet Take 500 mg by mouth twice daily with meals. albuterol HFA (VENTOLIN HFA) 90 mcg/actuation inhaler Inhale 2 Puffs as instructed every 4 hours as needed for Wheezing/Shortness of Breath. OLIVE OIL ORAL Take 4,000 mg by mouth once daily. coconut oil ondansetron (ZOFRAN, HYDROCHLORIDE,) 4 mg tablet Take 1 tablet by mouth once daily as needed (for nausea.). ibuprofen (ADVIL) 200 mg tablet Take 200 mg by mouth every 6 hours as needed. No current facility-administered medications for this visit. Allergies As of Date: 09/06/2018 Allergen Noted Reaction CODEINE 12/23/2011 Hives FENTANYL 12/23/2011 Other: See Comments Fully Assessed 09/06/2018 REVIEW OF SYSTEMS Abdomen: mild pain Bladder: no dysuria. Expanded ROS:negative fever Allergies and current medication updated:Yes EXAM: BP 126/72 Ht 5' 5.25 (1.66m) Wt 137 lb (62.1kg) BMI 22.63 kg/(m2). GENERAL: pleasant, female in no apparent distress HEENT: Normocephalic, atraumatic, mucus membranes moist and no lesions NECK: full range of motion DERMATOLOGY: Normal, without lesions, non-icteric and non-hirsute CARDIAC: regular rate and rhythm LUNGS: clear bilaterally to auscultation NEURO: alert and oriented x3,exam grossly non-focal EXTREMITIES: normal Report Summary: Overall impression: Uterus is small and farily unremarkable. ?A small intramural fibroid is noted anteriorly. ?The endometrium is thin and appears unremarkable. ? The right ovary is mildly enlarged and contains a 4 x 3 x 4 cm simple cyst. ?There ?also appears to be an elongated cystic structure adjacent to the right ovary, which possibly represents a hydrosalpinx. ?The left ovary is small and unremarkable. ?No free fluid is noted in the cul-de-sac. Recommendations / therapy: Clinical correlation is suggested. Follow- up: Follow up as clinically indicated. _ Indication: follow up ultrasound. _ History: Gynecological History: Past gynecological operations: endometrial ablation. _ Gynecological Ultrasonography: Uterus: normal,?retroverted. Size: Longitudinal 80 mm. Anterio- posterior 45 mm. Transverse 52 mm. Volume: 98.0 ?ml. Fibroids: Fibroid 1: Size: 11 mm x 7 mm x 11 mm. Type: anterior. Position: rt mid uterus. Endometrium: endometrium clearly visualized. Endometrium thickness total: 4.4 mm. Comment: anterior right mid uterine cyst [id number] prominent bilateral fallopian tubes. Right Ovary: normal. Visible. Morphology: normal morphology. Right Ovary size: 50 mm x 39 mm x 32 mm. Volume: 32.7 ml. Cysts Right Ovary: Cyst 1: Mean value: 36 mm. D1: 42 mm. D2: 29 mm. D3: 36 mm. Volume: 23 ml. Simple cyst. Left Ovary: normal. Visible. Morphology: normal morphology. Left Ovary size: 29 mm x 18 mm x 14 mm. Volume: 3.8 ml. Cul de Sac / Pouch of Darrin: no free fluid visible. Method: transvaginal ultrasound, transabdominal ultrasound, color Doppler, 2 D, 3 ASSESSMENT AND PLAN: Encounter Diagnosis ICD-10-CM 1. Post-op pain G89.18 HYDROcodone-acetaminophen (NORCO) 5- 325 mg per tablet 2. Pt has been counseled on risks/benefits and alternatives of surgery including but not limited to anesthesia, bleeding, infection, injury to pelvic structures including bowel, bladder, ureters and vessels. Pt wishes to proceed with surgery at this time. 3. Post op meds given 4. Post op restrictions reviewed Alicia Crawford MD CNOV Observed: 09/06/2018 Status: COMPLETED Source: [place] 1:50 PM [facility] REPOSITORY Office Visit (WOOB) NORMA HAWKINS ([id number]) 1970 F Date Time Provider Department 09/06/18 1:50 PM ALICIA SLATER During your visit today, we recorded the following information about you: Blood pressure Weight Height 126/72 62.1 kg 1.657 m Alicia Crawford MD 09/06/2018 2:17 PM Signed Norma Hawkins is a 48 year old female who presents for pre op visit. Pt is scheduled for Laparoscopic bilateral salpingectomy, possible right oophorectomy vs cystectomy. Pt has persistent abdominal discomfort- likely hydrosalpinx and right ovarian cyst. Pt denies any concerns today. Surgery is scheduled for 09/09/18. Consent obtained today. PAST MEDICAL HISTORY Diagnosis Date - Diverticulosis - S/P lumbar fusion L4/5 - Tobacco abuse disorder PAST SURGICAL HISTORY Procedure Laterality Date - EGD W/O OR W/BRUSH/WASH 02/14/16 EGD with mac - LAPAROSCOPIC CHOLEYCYSTECTOMY 11/26/2015 - LUMBAR SPINE FUSION COMBINED 2007 lumbar fusion L4-L5 - OVARIAN CYSTECTOMY 84 - REMOVAL OF TONSILS; AGE 12 OR OVER 83 - S BALLOON,UTERINE ABLATION [address] Sutton - TUBAL LIGATION, 89 FAMILY HISTORY Problem Relation Age of Onset - Hypertension Father - other (Lung Cancer) Father mets to brain - Heart Mother - Hypertension Mother - Kidney Disease Mother - Cervical Cancer Paternal Grandmother and ovarian - Breast Cancer Maternal Aunt - Kidney Disease Daughter hydronephrosis - Colon Cancer Other P-cousin - Cancer Paternal Uncle throat - other (Reilly's syndrome) Other 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 Social History Main Topics Smoking status: Current Every Day Smoker Packs/day: 1.00 Years: 27.00 Types: Cigarettes Start date: 11/16/1988 Last attempt to quit: 06/11/2017 Smokeless tobacco: Never Used Comment: 1/2 to 1 pack per day Alcohol use: Yes Comment: Occasionally Drug use: No Sexual activity: Yes control/protection: Tubal Ligation Comment: Ablation Current Outpatient Prescriptions: HYDROcodone-acetaminophen (NORCO) 5-325 mg per tablet Take 1 tablet by mouth every 6 hours as needed for Pain for up to 3 days. ibuprofen (MOTRIN) 600 mg tablet Take 1 tablet by mouth every 6 hours as needed. FOR PAIN. MULTI-VITAMIN ORAL Take by mouth. buPROPion XL (WELLBUTRIN XL) 150 mg 24 hr tablet Take 1 tablet by mouth once daily. omeprazole (PRILOSEC) 20 mg capsule Take 1 capsule by mouth daily before breakfast. 1/2 hr before meal. naproxen (NAPROSYN) 500 mg tablet Take 500 mg by mouth twice daily with meals. albuterol HFA (VENTOLIN HFA) 90 mcg/actuation inhaler Inhale 2 Puffs as instructed every 4 hours as needed for Wheezing/Shortness of Breath. OLIVE OIL ORAL Take 4,000 mg by mouth once daily. coconut oil ondansetron (ZOFRAN, HYDROCHLORIDE,) 4 mg tablet Take 1 tablet by mouth once daily as needed (for nausea.). ibuprofen (ADVIL) 200 mg tablet Take 200 mg by mouth every 6 hours as needed. No current facility-administered medications for this visit. Allergies As of Date: 09/06/2018 Allergen Noted Reaction CODEINE 12/23/2011 Hives FENTANYL 12/23/2011 Other: See Comments Fully Assessed 09/06/2018 REVIEW OF SYSTEMS Abdomen: mild pain Bladder: no dysuria. Expanded ROS:negative fever Allergies and current medication updated:Yes EXAM: BP 126/72 Ht 5' 5.25 (1.66m) Wt 137 lb (62.1kg) BMI 22.63 kg/(m2). GENERAL: pleasant, female in no apparent distress HEENT: Normocephalic, atraumatic, mucus membranes moist and no lesions NECK: full range of motion DERMATOLOGY: Normal, without lesions, non-icteric and non-hirsute CARDIAC: regular rate and rhythm LUNGS: clear bilaterally to auscultation NEURO: alert and oriented x3,exam grossly non-focal EXTREMITIES: normal Report Summary: Overall impression: Uterus is small and farily unremarkable. ?A small intramural fibroid is noted anteriorly. ?The endometrium is thin and appears unremarkable. ? The right ovary is mildly enlarged and contains a 4 x 3 x 4 cm simple cyst. ?There ?also appears to be an elongated cystic structure adjacent to the right ovary, which possibly represents a hydrosalpinx. ?The left ovary is small and unremarkable. ?No free fluid is noted in the cul-de-sac. Recommendations / therapy: Clinical correlation is suggested. Follow- up: Follow up as clinically indicated. Indication: follow up ultrasound. History: Gynecological History: Past gynecological operations: endometrial ablation. Gynecological Ultrasonography: Uterus: normal,?retroverted. Size: Longitudinal 80 mm. Anterio- posterior 45 mm. Transverse 52 mm. Volume: 98.0 ?ml. Fibroids: Fibroid 1: Size: 11 mm x 7 mm x 11 mm. Type: anterior. Position: rt mid uterus. Endometrium: endometrium clearly visualized. Endometrium thickness total: 4.4 mm. Comment: anterior right mid uterine cyst [id number] prominent bilateral fallopian tubes. Right Ovary: normal. Visible. Morphology: normal morphology. Right Ovary size: 50 mm x 39 mm x 32 mm. Volume: 32.7 ml. Cysts Right Ovary: Cyst 1: Mean value: 36 mm. D1: 42 mm. D2: 29 mm. D3: 36 mm. Volume: 23 ml. Simple cyst. Left Ovary: normal. Visible. Morphology: normal morphology. Left Ovary size: 29 mm x 18 mm x 14 mm. Volume: 3.8 ml. Cul de Sac / Pouch of Darrin: no free fluid visible. Method: transvaginal ultrasound, transabdominal ultrasound, color Doppler, 2 D, 3 ASSESSMENT AND PLAN: Encounter Diagnosis ICD-10-CM 1. Post-op pain G89.18 HYDROcodone-acetaminophen (NORCO) 5- 325 mg per tablet 2. Pt has been counseled on risks/benefits and alternatives of surgery including but not limited to anesthesia, bleeding, infection, injury to pelvic structures including bowel, bladder, ureters and vessels. Pt wishes to proceed with surgery at this time. 3. Post op meds given 4. Post op restrictions reviewed Alicia Crawford MD Referring Provider: SELF [[id number]] Allergies As of Date: 09/06/2018 Noted Allergy Reaction CODEINE 12/23/2011 4 - Hives FENTANYL 12/23/2011 14 - Other: See Comments Comments: Slow heart rate shallow resp. Date Reviewed: 09/06/2018 Reviewed by: Sana Byrd Ma - Fully Assessed Reason for Visit: Pre-Op Visit [1235] Primary Visit Diagnosis:Pre-op exam [Z01.818] Other Visit Diagnosis:Post-op pain [G89.18] Order(s):HYDROcodone-acetaminophen (NORCO) 5-325 mg per tabletTake 1 tablet by mouth every 6 hours as needed for Pain for up to 3 days.Disp: 10 tabletRfl: 0 ibuprofen (MOTRIN) 600 mg tabletTake 1 tablet by mouth every 6 hours as needed. FOR PAIN.Disp: 30 tabletRfl: 0 Prescriptions as of 09/06/2018 Sig: HYDROCODONE 5 MG-ACETAMINOPHE* Take 1 tablet by mouth every * IBUPROFEN 600 MG TABLET Take 1 tablet by mouth every * MULTI-VITAMIN ORAL Take by mouth. BUPROPION XL 150 MG TAB Take 1 tablet by mouth once d* OMEPRAZOLE 20 MG CAPSULE,MARLA* Take 1 capsule by mouth daily* NAPROXEN 500 MG TABLET Take 500 mg by mouth twice da* ALBUTEROL SULFATE HFA 90 MCG/* Inhale 2 Puffs as instructed * OLIVE OIL ORAL Take 4,000 mg by mouth once d* ONDANSETRON HCL 4 MG TABLET Take 1 tablet by mouth once d* IBUPROFEN 200 MG TABLET Take 200 mg by mouth every 6 * Problem List As Of Date 09/06/2018 Noted Resolved PMDD (premenstrual dysphoric disorder) [F32.81] INVALID FOR*05/25/2013 Breast hypertrophy in female [N62] INVALID FOR* S/P endometrial ablation [Z98.890] INVALID FOR* Microscopic hematuria [R31.29] INVALID FOR* Left pelvic adnexal fluid collection [R68.89] INVALID FOR* Pelvic pain [R10.2] INVALID FOR* Prescriptions ordered this encounter Disp Refills Start End HYDROCODONE 5 MG-ACETAMINOPHEN 325 M* 10 t* 0 09/06/2018 09/09/2018 Class: Print RX Route: ORAL Sig: Take 1 tablet by mouth every 6 hours as needed for Pain for up to 3 days. IBUPROFEN 600 MG TABLET 30 t* 0 09/06/2018 Route: ORAL Sig: Take 1 tablet by mouth every 6 hours as needed. FOR PAIN. Encounter Status:Closed by ALICIA JONES MD on 09/06/18 CNOV Observed: 08/19/2018 Status: COMPLETED Source: [facility] 9:00 AM [facility] REPOSITORY Office Visit (WOOB) JOSEFINANORMA Jeff ([id number]) 1970 F Date Time Provider Department 08/19/18 9:00 AM ALICIA SLATER [facility] During your visit today, we recorded the following information about you: Blood pressure Weight 112/66 60.3 kg Alicia Crawford MD 08/19/2018 3:43 PM Addendum Azaliahanna Hawkins is a 48 year old female who presents for follow up right sided pelvic pain. Pt was seen in June- severe pain was seen in ER and dx with Right ovarian cyst and possible hydrosalpinx. Pt reports since that time pain has improved but she still has pain that she rates 3-4/10 and sometimes can be exacerbated. Pt reports that when pain gets worse will lay down for a few minutes and take motrin and it will ease up. Pt reports does have nausea but No vomiting. Pt denies fever. Pt reports pain is more on RLQ but can be all over abdomen. Pt reports sex is painful. 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 PAST MEDICAL HISTORY Diagnosis Date - Diverticulosis - S/P lumbar fusion L4/5 - Tobacco abuse disorder PAST SURGICAL HISTORY Procedure Laterality Date - EGD W/O OR W/BRUSH/WASH 02/14/16 EGD with mac - LAPAROSCOPIC CHOLEYCYSTECTOMY 11/26/2015 - LUMBAR SPINE FUSION COMBINED 2007 lumbar fusion L4-L5 - OVARIAN CYSTECTOMY 84 - REMOVAL OF TONSILS; AGE 12 OR OVER 83 - S BALLOON,UTERINE ABLATION [address] 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 buPROPion XL (WELLBUTRIN XL) 150 mg 24 hr tablet Take 1 tablet by mouth once daily. omeprazole (PRILOSEC) 20 mg capsule Take 1 capsule by mouth daily before breakfast. 1/2 hr before meal. HYDROcodone-acetaminophen (NORCO) 5-325 mg per tablet Take 1 tablet by mouth every 8 hours as needed for Pain for up to 7 days. naproxen (NAPROSYN) 500 mg tablet Take 500 mg by mouth twice daily with meals. albuterol HFA (VENTOLIN HFA) 90 mcg/actuation inhaler Inhale 2 Puffs as instructed every 4 hours as needed for Wheezing/Shortness of Breath. OLIVE OIL ORAL Take 4,000 mg by mouth once daily. coconut oil ondansetron (ZOFRAN, HYDROCHLORIDE,) 4 mg tablet Take 1 tablet by mouth once daily as needed (for nausea.). ibuprofen (ADVIL) 200 mg tablet Take 200 mg by mouth every 6 hours as needed. No current facility-administered medications for this visit. Allergies As of Date: 08/19/2018 Allergen Noted Reaction CODEINE 12/23/2011 Hives FENTANYL 12/23/2011 Other: See Comments Fully Assessed 08/19/2018 REVIEW OF SYSTEMS Abdomen: ++ pain. No constipation or diarrhea Bladder: no dysuria .. Expanded ROS: GENERAL: Negative for fever Allergies and current medication updated:Yes EXAM: BP 112/66 Wt 133 lb (60.3kg) GENERAL: pleasant, female in no apparent distress HEENT: Normocephalic and atraumatic NECK: full range of motion DERMATOLOGY: Normal, without lesions, non-icteric and non-hirsute ABDOMEN: soft, + diffuse tenderness but more in RLQ. No rebound, some guarding. PELVIC: deferred BIMANUAL: deferred NEURO: alert and oriented x3,exam grossly non-focal EXTREMITIES: normal ASSESSMENT AND PLAN: Encounter Diagnosis ICD-10-CM 1. Pelvic pain in female R10.2 2. Hydrosalpinx N70.11 3. Ovarian cyst, right N83.201 4. Reviewed expectant mgmt vs surgical mgmt. Pt opting for surgical mgmt at this time due to persistent pain. 5. Reviewed laparoscopic bilateral salpingectomy, possible right cystectomy, possible oophorectomy. Will schedule and notify patient of pre op visit. 6. Ultrasound reviewed- tubular structure- likely representing Hydrosalpinx and right ovarian cyst. Alicia Crawford MD Referring Provider: YON VAZQUEZ [[id number]] Allergies As of Date: 08/19/2018 Noted Allergy Reaction CODEINE 12/23/2011 4 - Hives FENTANYL 12/23/2011 14 - Other: See Comments Comments: Slow heart rate shallow resp. Date Reviewed: 08/19/2018 Reviewed by: Sana Byrd Ma - Fully Assessed Reason for Visit: Follow Up [171] Primary Visit Diagnosis:Pelvic pain in female [R10.2] Other Visit Diagnoses:Hydrosalpinx [N70.11] Ovarian cyst, right [N83.201] Prescriptions as of 08/19/2018 Sig: MULTI-VITAMIN ORAL Take by mouth. BUPROPION XL 150 MG TAB Take 1 tablet by mouth once d* OMEPRAZOLE 20 MG CAPSULE,MARLA* Take 1 capsule by mouth daily* HYDROCODONE 5 MG-ACETAMINOPHE* Take 1 tablet by mouth every * NAPROXEN 500 MG TABLET Take 500 mg by mouth twice da* ALBUTEROL SULFATE HFA 90 MCG/* Inhale 2 Puffs as instructed * OLIVE OIL ORAL Take 4,000 mg by mouth once d* ONDANSETRON HCL 4 MG TABLET Take 1 tablet by mouth once d* IBUPROFEN 200 MG TABLET Take 200 mg by mouth every 6 * Problem List As Of Date 08/19/2018 Noted Resolved PMDD (premenstrual dysphoric disorder) [F32.81] INVALID FOR*05/25/2013 Breast hypertrophy in female [N62] INVALID FOR* S/P endometrial ablation [Z98.890] INVALID FOR* Microscopic hematuria [R31.29] INVALID FOR* Left pelvic adnexal fluid collection [R68.89] INVALID FOR* Pelvic pain [R10.2] INVALID FOR* Encounter Status:Closed by ALICIA JONES MD on 08/19/18 PROGRESS Observed: 08/19/2018 Status: COMPLETED Source: GUYS 8:47 AM [facility] REPOSITORY HNO ID: [id number] Author: Alicia Jones Service: (none) Author Type: Physician Type: Progress Notes Filed: 08/19/2018 3:43 PM Note Text: Norma Hawkins is a 48 year old female who presents for follow up right sided pelvic pain. Pt was seen in June- severe pain was seen in ER and dx with Right ovarian cyst and possible hydrosalpinx. Pt reports since that time pain has improved but she still has pain that she rates 3-4/10 and sometimes can be exacerbated. Pt reports that when pain gets worse will lay down for a few minutes and take motrin and it will ease up. Pt reports does have nausea but No vomiting. Pt denies fever. Pt reports pain is more on RLQ but can be all over abdomen. Pt reports sex is painful. 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 PAST MEDICAL HISTORY Diagnosis Date - Diverticulosis - S/P lumbar fusion L4/5 - Tobacco abuse disorder PAST SURGICAL HISTORY Procedure Laterality Date - EGD W/O OR W/BRUSH/WASH 02/14/16 EGD with mac - LAPAROSCOPIC CHOLEYCYSTECTOMY 11/26/2015 - LUMBAR SPINE FUSION COMBINED 2007 lumbar fusion L4-L5 - OVARIAN CYSTECTOMY 84 - REMOVAL OF TONSILS; AGE 12 OR OVER 83 - S BALLOON,UTERINE ABLATION [id number] 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 buPROPion XL (WELLBUTRIN XL) 150 mg 24 hr tablet Take 1 tablet by mouth once daily. omeprazole (PRILOSEC) 20 mg capsule Take 1 capsule by mouth daily before breakfast. 1/2 hr before meal. HYDROcodone-acetaminophen (NORCO) 5-325 mg per tablet Take 1 tablet by mouth every 8 hours as needed for Pain for up to 7 days. naproxen (NAPROSYN) 500 mg tablet Take 500 mg by mouth twice daily with meals. albuterol HFA (VENTOLIN HFA) 90 mcg/actuation inhaler Inhale 2 Puffs as instructed every 4 hours as needed for Wheezing/Shortness of Breath. OLIVE OIL ORAL Take 4,000 mg by mouth once daily. coconut oil ondansetron (ZOFRAN, HYDROCHLORIDE,) 4 mg tablet Take 1 tablet by mouth once daily as needed (for nausea.). ibuprofen (ADVIL) 200 mg tablet Take 200 mg by mouth every 6 hours as needed. No current facility-administered medications for this visit. Allergies As of Date: 08/19/2018 Allergen Noted Reaction CODEINE 12/23/2011 Hives FENTANYL 12/23/2011 Other: See Comments Fully Assessed 08/19/2018 REVIEW OF SYSTEMS Abdomen: ++ pain. No constipation or diarrhea Bladder: no dysuria .. Expanded ROS: GENERAL: Negative for fever Allergies and current medication updated:Yes EXAM: BP 112/66 Wt 133 lb (60.3kg) GENERAL: pleasant, female in no apparent distress HEENT: Normocephalic and atraumatic NECK: full range of motion DERMATOLOGY: Normal, without lesions, non-icteric and non-hirsute ABDOMEN: soft, + diffuse tenderness but more in RLQ. No rebound, some guarding. PELVIC: deferred BIMANUAL: deferred NEURO: alert and oriented x3,exam grossly non-focal EXTREMITIES: normal ASSESSMENT AND PLAN: Encounter Diagnosis ICD-10-CM 1. Pelvic pain in female R10.2 2. Hydrosalpinx N70.11 3. Ovarian cyst, right N83.201 4. Reviewed expectant mgmt vs surgical mgmt. Pt opting for surgical mgmt at this time due to persistent pain. 5. Reviewed laparoscopic bilateral salpingectomy, possible right cystectomy, possible oophorectomy. Will schedule and notify patient of pre op visit. 6. Ultrasound reviewed- tubular structure- likely representing Hydrosalpinx and right ovarian cyst. Alicia Crawford MD PROGRESS Observed: 08/17/2018 Status: COMPLETED Source: GUYS 7:24 AM [facility] REPOSITORY HNO ID: [id number] Author: Yon Vazquez Service: (none) Author Type: Physician Type: Progress Notes Filed: 08/17/2018 7:28 AM Note Text: CC: Norma Hawkins is a 48 year old female who presents to the office for abd pain follow up HPI: Seen in office on 07/05, at that time Here for EMERGENCY DEPARTMENT follow up, experienced severe LLQ and RLQ abdominal pain that radiated to epigastric area, associated with nausea and inability for anything to touch her abdominal skin due to extreme nature of pain, this started 1-2 days ago, she was seen at [facility]. Had CT abd/pelvis with concerns for left pelvic ovarian vs. Tubal cyst at 4 cm size. She was given pain medications and discharged home for US pelvis today at the hospital. ? She had pelvic US completed this AM and is asking for results. Abdominal pain is manageable with nausea medications from home as well as the Parchman which was given in the EMERGENCY DEPARTMENT ? She hasn't seen [facility] yet She was then seen by [facility] on 07/13, left adnexal/ovarian cyst seen on US, Dr. Jones recommended follow up in 4-5 weeks with repeat US TV/TA to determine if any change. She had that US today, no results yet. She is still experiencing some suprapubic and mostly RLQ discomfort that comes and goes, Also still with upper abdominal discomfort and bloating. Has had this off and on for 1-2 years, has hx of cholecystectomy, has had negative H pylori and Celiac testing, has had EGD and Colonoscopy without significant findings for diagnosis. Is going to be seeing Lucie Piper upcoming PAST MEDICAL HISTORY Diagnosis Date - Diverticulosis - S/P lumbar fusion L4/5 - Tobacco abuse disorder PAST SURGICAL HISTORY Procedure Laterality Date - EGD W/O OR W/BRUSH/WASH 02/14/16 EGD with mac - LAPAROSCOPIC CHOLEYCYSTECTOMY 11/26/2015 - LUMBAR SPINE FUSION COMBINED 2007 lumbar fusion L4-L5 - OVARIAN CYSTECTOMY 84 - REMOVAL OF TONSILS; AGE 12 OR OVER 83 - S BALLOON,UTERINE ABLATION [address] Sutton - TUBAL LIGATION, 93 Current Outpatient Prescriptions: MULTI-VITAMIN ORAL Take by mouth. buPROPion XL (WELLBUTRIN XL) 150 mg 24 hr tablet Take 1 tablet by mouth once daily. naproxen (NAPROSYN) 500 mg tablet Take 500 mg by mouth twice daily with meals. albuterol HFA (VENTOLIN HFA) 90 mcg/actuation inhaler Inhale 2 Puffs as instructed every 4 hours as needed for Wheezing/Shortness of Breath. ondansetron (ZOFRAN, HYDROCHLORIDE,) 4 mg tablet Take 1 tablet by mouth once daily as needed (for nausea.). ibuprofen (ADVIL) 200 mg tablet Take 200 mg by mouth every 6 hours as needed. omeprazole (PRILOSEC) 20 mg capsule Take 1 capsule by mouth daily before breakfast. 1/2 hr before meal. HYDROcodone-acetaminophen (NORCO) 5-325 mg per tablet Take 1 tablet by mouth every 8 hours as needed for Pain for up to 7 days. OLIVE OIL ORAL Take 4,000 mg by mouth once daily. coconut oil No current facility-administered medications for this visit. ALLERGIES Allergen Reactions - Codeine Hives - Fentanyl Other: See Comments Slow heart rate shallow resp. 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[employer] Social History Main Topics Smoking status: Current Every Day Smoker Packs/day: 1.00 Years: 27.00 Types: Cigarettes Start date: 11/16/1988 Last attempt to quit: 06/11/2017 Smokeless tobacco: Never Used Comment: 1/2 to 1 pack per day Alcohol use: Yes Comment: Occasionally Drug use: No Sexual activity: Yes control/protection: Tubal Ligation Comment: Ablation ROS: See HPI PE: BP 124/80 Pulse 60 Temp (Src) 97.4 (Right Tympanic) Resp 16 Wt 133 lb (60.3kg) Gen: AANDOX3, NAD, non-toxic appearing HEENT: PERRLA, EOMs intact b/l, nares without drainage, pharynx without erythema, exudate, lesions, or drainage. Uvula midline. Neck: No LAD, no thyromegaly, no meningismus. CV: RRR, no murmur Lungs: CTA b/l, no wheezing Skin: No rashes, lesions, or wounds on exposed skin. Abd: soft, mild epigastric and suprapubic and RLQ TTP without r/r/g, normal BS, no masses or hepatosplenomegaly No edema ASSESSMENT/PLAN: 1. Pelvic pain - ICD9: [id number], ICD10: R10.2 (primary diagnosis) - rx for severe pain only, follow up with [facility] after US results determined, unsure of next steps per specialist - HYDROCODONE 5 MG-ACETAMINOPHEN 325 MG TABLET 2. Tobacco use disorder - ICD9: 305.1, ICD10: F17.200 - Cessation encouraged. - Physiologic and physical aspects of tobacco addiction as well as strategies for quitting were discussed. - Counseling was given focusing on the harmful effects of this addiction especially given the patient's medical condition(s) which will be worsened because of the chemicals in tobacco. - BUPROPION XL 150 MG TAB 3. Bloating - ICD9: 787.3, ICD10: R14.0 - f/u with GI, lactose tolerance testing as ordered, - LACTOSE TOLERANCE 4. Upper abdominal pain - ICD9: 789.09, ICD10: R10.10 - f/u with GI, lactose tolerance testing as ordered, - LACTOSE TOLERANCE Yon Vazquez DO Return if no improvement. Follow up with Yon Vazquez DO. Discussed risks, benefits, alternatives, and potential side effects of medications. Patient/Guardian expressed understanding and agreed with the plan. See patient instructions. Yon Vazquez DO [address] [place] [address] PROGRESS Observed: 08/16/2018 Status: COMPLETED Source: GUYS 3:30 PM [facility] REPOSITORY HNO ID: [id number] Author: Gregory Mccarthy Service: (none) Author Type: Physician Type: Progress Notes Filed: 08/16/2018 3:31 PM Note Text: Please see ultrasound report for details of this visit. Gregory Mccarthy M.D. CNCO Observed: 08/16/2018 Status: COMPLETED Source: GUYS 12:49 PM [facility] REPOSITORY HNO ID: [id number] Author: Mammography Coordinator Service: (none) Author Type: Physician Type: Letter Filed: 08/17/2018 11:32 PM Note Text: August 16, 2018 PID: [id number] Norma Hawkins [address] [place] [id number] Dear Ms. Hawkins, We are pleased to inform you that the results of your recent breast imaging exam on 08/16/2018 are normal. Your mammogram demonstrates that you have dense breast tissue, which could hide abnormalities. Dense breast tissue, in and of itself, is a relatively common condition. Therefore, this information is not provided to cause undue concern; rather, it is to raise your awareness and promote discussion with your health care provider regarding the presence of dense breast tissue in addition to other risk factors. Early detection of cancer is very important. We also understand recommendations regarding breast cancer screening are controversial. Please discuss with your primary care provider which strategy is best for you and whether a mammogram is right for you. Your imaging studies and report will be kept on file at [facility] as part of your permanent medical record and are available for your continuing care. Thank you for allowing us to help in meeting your health care needs. Sincerely, Dr. Cornelius Interpreting Radiologist [facility] (Normal over 40) CNOV Observed: 08/16/2018 Status: COMPLETED Source: GUYS 12:20 PM [facility] REPOSITORY [facility] NORMA HAWKINS ([id number]) 1970 F Date Time Provider Department 08/16/18 12:20 PM YON VAZQUEZ [facility] During your visit today, we recorded the following information about you: Temperature Pulse Respiration Blood pressure 97.4 degrees 60/minute 16/minute 124/80 Weight 60.3 kg Yon Vazquez DO 08/17/2018 7:28 AM Signed CC: Azaliahanna Hawkins is a 48 year old female who presents to the office for abd pain follow up HPI: Seen in office on 07/05, at that time Here for EMERGENCY DEPARTMENT follow up, experienced severe LLQ and RLQ abdominal pain that radiated to epigastric area, associated with nausea and inability for anything to touch her abdominal skin due to extreme nature of pain, this started 1-2 days ago, she was seen at [facility]. Had CT abd/pelvis with concerns for left pelvic ovarian vs. Tubal cyst at 4 cm size. She was given pain medications and discharged home for US pelvis today at the hospital. ? She had pelvic US completed this AM and is asking for results. Abdominal pain is manageable with nausea medications from home as well as the Parchman which was given in the EMERGENCY DEPARTMENT ? She hasn't seen [facility] yet She was then seen by [facility] on 07/13, left adnexal/ovarian cyst seen on US, Dr. Jones recommended follow up in 4-5 weeks with repeat US TV/TA to determine if any change. She had that US today, no results yet. She is still experiencing some suprapubic and mostly RLQ discomfort that comes and goes, Also still with upper abdominal discomfort and bloating. Has had this off and on for 1-2 years, has hx of cholecystectomy, has had negative H pylori and Celiac testing, has had EGD and Colonoscopy without significant findings for diagnosis. Is going to be seeing Lucie Piper upcoming PAST MEDICAL HISTORY Diagnosis Date - Diverticulosis - S/P lumbar fusion L4/5 - Tobacco abuse disorder PAST SURGICAL HISTORY Procedure Laterality Date - EGD W/O OR W/BRUSH/WASH 02/14/16 EGD with mac - LAPAROSCOPIC CHOLEYCYSTECTOMY 11/26/2015 - LUMBAR SPINE FUSION COMBINED 2007 lumbar fusion L4-L5 - OVARIAN CYSTECTOMY 84 - REMOVAL OF TONSILS; AGE 12 OR OVER 83 - S BALLOON,UTERINE ABLATION [address] Sutton - TUBAL LIGATION, 93 Current Outpatient Prescriptions: MULTI-VITAMIN ORAL Take by mouth. buPROPion XL (WELLBUTRIN XL) 150 mg 24 hr tablet Take 1 tablet by mouth once daily. naproxen (NAPROSYN) 500 mg tablet Take 500 mg by mouth twice daily with meals. albuterol HFA (VENTOLIN HFA) 90 mcg/actuation inhaler Inhale 2 Puffs as instructed every 4 hours as needed for Wheezing/Shortness of Breath. ondansetron (ZOFRAN, HYDROCHLORIDE,) 4 mg tablet Take 1 tablet by mouth once daily as needed (for nausea.). ibuprofen (ADVIL) 200 mg tablet Take 200 mg by mouth every 6 hours as needed. omeprazole (PRILOSEC) 20 mg capsule Take 1 capsule by mouth daily before breakfast. 1/2 hr before meal. HYDROcodone-acetaminophen (NORCO) 5-325 mg per tablet Take 1 tablet by mouth every 8 hours as needed for Pain for up to 7 days. OLIVE OIL ORAL Take 4,000 mg by mouth once daily. coconut oil No current facility-administered medications for this visit. ALLERGIES Allergen Reactions - Codeine Hives - Fentanyl Other: See Comments Slow heart rate shallow resp. 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[employer] Social History Main Topics Smoking status: Current Every Day Smoker Packs/day: 1.00 Years: 27.00 Types: Cigarettes Start date: 11/16/1988 Last attempt to quit: 06/11/2017 Smokeless tobacco: Never Used Comment: 1/2 to 1 pack per day Alcohol use: Yes Comment: Occasionally Drug use: No Sexual activity: Yes control/protection: Tubal Ligation Comment: Ablation ROS: See HPI PE: BP 124/80 Pulse 60 Temp (Src) 97.4 (Right Tympanic) Resp 16 Wt 133 lb (60.3kg) Gen: AANDOX3, NAD, non-toxic appearing HEENT: PERRLA, EOMs intact b/l, nares without drainage, pharynx without erythema, exudate, lesions, or drainage. Uvula midline. Neck: No LAD, no thyromegaly, no meningismus. CV: RRR, no murmur Lungs: CTA b/l, no wheezing Skin: No rashes, lesions, or wounds on exposed skin. Abd: soft, mild epigastric and suprapubic and RLQ TTP without r/r/g, normal BS, no masses or hepatosplenomegaly No edema ASSESSMENT/PLAN: 1. Pelvic pain - ICD9: [id number], ICD10: R10.2 (primary diagnosis) - rx for severe pain only, follow up with [facility] after US results determined, unsure of next steps per specialist - HYDROCODONE 5 MG-ACETAMINOPHEN 325 MG TABLET 2. Tobacco use disorder - ICD9: 305.1, ICD10: F17.200 - Cessation encouraged. - Physiologic and physical aspects of tobacco addiction as well as strategies for quitting were discussed. - Counseling was given focusing on the harmful effects of this addiction especially given the patient's medical condition(s) which will be worsened because of the chemicals in tobacco. - BUPROPION XL 150 MG TAB 3. Bloating - ICD9: 787.3, ICD10: R14.0 - f/u with GI, lactose tolerance testing as ordered, - LACTOSE TOLERANCE 4. Upper abdominal pain - ICD9: 789.09, ICD10: R10.10 - f/u with GI, lactose tolerance testing as ordered, - LACTOSE TOLERANCE Yon Vazquez DO Return if no improvement. Follow up with Yon Vazquez DO. Discussed risks, benefits, alternatives, and potential side effects of medications. Patient/Guardian expressed understanding and agreed with the plan. See patient instructions. Yon Vazquez DO [address] [place] [address] Referring Provider: YON VAZQUEZ [[id number]] Allergies As of Date: 08/16/2018 Noted Allergy Reaction CODEINE 12/23/2011 4 - Hives FENTANYL 12/23/2011 14 - Other: See Comments Comments: Slow heart rate shallow resp. Date Reviewed: 08/16/2018 Reviewed by: Arian Pickett LPN - Fully Assessed Reason for Visit: Follow Up [171] Cmt: 6 weeks Primary Visit Diagnosis:Pelvic pain [R10.2] Other Visit Diagnoses:Tobacco use disorder [F17.200] Bloating [R14.0] Upper abdominal pain [R10.10] Order(s):buPROPion XL (WELLBUTRIN XL) 150 mg 24 hr tabletTake 1 tablet by mouth once daily.Disp: 90 tabletRfl: 0 omeprazole (PRILOSEC) 20 mg capsuleTake 1 capsule by mouth daily before breakfast. 1/2 hr before meal.Disp: 90 capsuleRfl: 1 HYDROcodone-acetaminophen (NORCO) 5-325 mg per tabletTake 1 tablet by mouth every 8 hours as needed for Pain for up to 7 days.Disp: 20 tabletRfl: 0 LACTOSE TOLERANCE [SQLACTT] Order #: [id number] FUTURE Prescriptions as of 08/16/2018 Sig: MULTI-VITAMIN ORAL Take by mouth. BUPROPION XL 150 MG TAB Take 1 tablet by mouth once d* NAPROXEN 500 MG TABLET Take 500 mg by mouth twice da* ALBUTEROL SULFATE HFA 90 MCG/* Inhale 2 Puffs as instructed * ONDANSETRON HCL 4 MG TABLET Take 1 tablet by mouth once d* IBUPROFEN 200 MG TABLET Take 200 mg by mouth every 6 * OMEPRAZOLE 20 MG CAPSULE,MARLA* Take 1 capsule by mouth daily* HYDROCODONE 5 MG-ACETAMINOPHE* Take 1 tablet by mouth every * OLIVE OIL ORAL Take 4,000 mg by mouth once d* Medication notes this encounter HYDROCODONE 5 MG-ACETAMINOPHEN 325 MG TABLET >> Arian Pickett LPN 08/16/2018 12:24 PM >> ARIAN PICKETT LPN ThuAug 16, 2018 12:24 PM finished Problem List As Of Date 08/16/2018 Noted Resolved PMDD (premenstrual dysphoric disorder) [F32.81] INVALID FOR*05/25/2013 Breast hypertrophy in female [N62] INVALID FOR* S/P endometrial ablation [Z98.890] INVALID FOR* Microscopic hematuria [R31.29] INVALID FOR* Left pelvic adnexal fluid collection [R68.89] INVALID FOR* Pelvic pain [R10.2] INVALID FOR* Prescriptions ordered this encounter Disp Refills Start End BUPROPION XL 150 MG TAB 90 t* 0 08/16/2018 Route: ORAL Sig: Take 1 tablet by mouth once daily. OMEPRAZOLE 20 MG CAPSULE,DELAYED REL* 90 c* 1 08/16/2018 Route: ORAL Sig: Take 1 capsule by mouth daily before breakfast. 1/2 hr before meal. HYDROCODONE 5 MG-ACETAMINOPHEN 325 M* 20 t* 0 08/16/2018 08/23/2018 Class: Print RX Route: ORAL Sig: Take 1 tablet by mouth every 8 hours as needed for Pain for up to 7 days. Medications Discontinued During This Encounter buPROPion XL (WELLBUTRIN XL) 150 mg * 90 t* 0 06/23/2018 08/16/2018 Route: ORAL Sig: Take 1 tablet by mouth once daily. Disc: Reason for discontinue is not on file. HYDROcodone-acetaminophen (NORCO) 5-* 08/16/2018 Class: Historical Med Route: ORAL Sig: Take 1 tablet by mouth every 6 hours as needed. Disc: Reason for discontinue is not on file. Encounter Status:Closed by YON VAZQUEZ DO on 08/17/18 [facility] SCREENING Observed: 08/16/2018 Status: F Source: GUYS 11:30 AM [facility] REPOSITORY * * *Final Report* * * DATE OF EXAM: Aug 16 2018 11:30AM WOW [id number] - [facility] SCREENING / PROCEDURE REASON: Encounter for screening mammogram for malignant neoplasm of breast * * * * Physician Interpretation * * * * RESULT: #[id number] - [facility] SCREENING BILATERAL DIGITAL SCREENING MAMMOGRAM WITH CAD: 08/16/2018 HISTORY: Encounter For Screening Mammogram For Malignant Neoplasm Of Breast. RESULT: TECHNIQUE: The study was acquired using full field digital technology and interpreted from soft copy. Current study was also evaluated with a Computer Aided Detection (CAD). Comparison is made to exams dated: 08/11/2017 mammogram - [facility], 08/21/2016 mammogram - [facility], 08/12/2016 mammogram, and 07/09/2015 mammogram - [facility]. The tissue of both breasts is heterogeneously dense. This may lower the sensitivity of mammography. No significant masses, calcifications, or other findings are seen in either breast. There has been no significant interval change. IMPRESSION: NEGATIVE There is no mammographic evidence of malignancy.A 1 year screening mammogram is recommended. Carlie Cornelius M.D. fa/rudy:08/16/2018 12:49:36 [place]: Sybil GARCIA(Master)([place]), [facility] letter sent: Normal over 40 Mammogram BI-RADS: 1 Negative Multiple national specialty organizations have released breast cancer screening guidelines for women at average risk for developing breast cancer - guidelines that are based on both evidence and opinion, yet differ on when to start and how often to screen for breast cancer. With representation from Breast Imaging, Internal Medicine, Women's Health, Family Medicine, and Medical/Surgical Oncology, the [facility] has carefully reviewed the data and reached the following consensus: 1) All women should engage in shared decision-making with their providers to decide when to start and how often to screen; 2) All women should have the opportunity to start screening mammography at age 40; 3) For women ages 45-55, we recommend annual screening mammograms; 4) For women ages 55 and over, we support both the transition from an annual to a biennial interval if this aligns more with patient's values and preferences, or continuation with annual screening; 5) All women should discuss with their providers when to stop screening mammograms. Entertainment Reporter: Rudy Transcribe Date/Time: Aug 16 2018 11:01A Dictated by: CARLIE CORNELIUS MD This examination was interpreted and the report reviewed and electronically signed by: CARLIE CORNELIUS MD on Aug 16 2018 12:49PM EST [id number] PROGRESS Observed: 08/16/2018 Status: COMPLETED Source: GUYS 11:00 AM [facility] REPOSITORY HNO ID: [id number] Author: Jaz Garcia Service: (none) Author Type: (none) Type: Progress Notes Filed: 08/16/2018 11:00 AM Note Text: Radiology Service Progress Note PATIENT NAME: Norma Hawkins DATE OF SERVICE: August 16, 2018 TIME: 11:00 AM PATIENT IDENTITY VERIFICATION COMPLETED USING TWO (2) METHODS: Patient confirmed name verbally and Date of . PATIENT GENDER DATA: Female. status: : No status: NO. PATIENT RELEVANT IMPLANT DATA REVIEWED: Not Applicable RADIOLOGY DEPARTMENT: [facility] IV DATA: Not applicable SIGNED BY: Jaz Schaefer Rt August 16, 2018 11:00 AM 12 LEAD ELECTROCARDIOGRAM Observed: 08/04/2018 Status: F Source: LEA 3:35 PM [facility] REPOSITORY [facility] Cardiovascular Services [address] [place] [address] [place] [address] 12 Lead EKG 07/26/182114 MR#: [id number] Acct: [id number] Name: NORMA HAWKINS Rep #: [id number] : 1970 47 From: Akhil Roberts MD Attending Dr: Status: DEP ER Ordering Dr: Dickson Clifton MD Date: 07/26/18 Location: ED Sex: F C Admitted: Test Reason : CP Blood Pressure : / mmHG Vent. Rate : 067 BPM Atrial Rate : 067 BPM P-R Int : 148 ms QRS Dur : 074 ms QT Int : 394 ms P-R-T Axes : 053 040 048 degrees QTc Int : 416 ms Normal sinus rhythm Normal ECG Confirmed by AKHIL ROBERTS MD ([id number]), web content editor TERESITA MCGARRY ([id number]) on 08/04/2018 3:34:55 PM Referred By: ELODIA/NANI Confirmed By:AKHIL ROBERTS MD 08/04/18 1534 Date Akhil Roberts MD CC: DICKSON CLIFTON MD; Emily Bass MD; DO Ba Hummel EMERGENCY DEPARTMENT Observed: 07/27/2018 Status: F Source: LEA SUMMARY 1:34 AM [facility] REPOSITORY [facility] Medical Records Department [address] [place] [address] Emergency Department Summary 07/26/18 2248 MR#: [id number] Acct: [id number] Name: NORMA HAWKINS Rep #: [id number] : 1970 47 From: Emily Bass MD PCP: Yon Hernandez, Status: DEP ER - ER Visit Summary Date of Service: 07/26/18 Chief Complaint: Chest pain History of Present Illness: The patient is a 47 F brought in by EMS for chest pain. Patient states she bent over and had onset of what felt like reflux. She did not feel well following this and sat down. She states she felt short of breath, some chest tightness, and her heart rate was approximately 100. She states her normal heart rate is in the 50s-60s. She did note some tingling in her hands. The symptoms lasted approximate 15 minutes and then completely resolved. Patient has not felt well for approximately last 6 weeks. She is been following up with [facility] for an ovarian cyst. Her only complaint at this time is some mild lower abdominal pain that she has had. Patient is a family history of Pdmiv-Hkcfkwxsq-Qonxl. She has had stress test and cardiac cath in the past. She states she just had a stress test in April that was unremarkable. Physical Examination: Vital signs are unremarkable. Patient sitting upright in bed no acute distress. Head neck examination is normal. Heart is regular rate and rhythm. Lung sounds are clear. Abdomen is soft with no focal tenderness to palpation. Bowel sounds are noted throughout. Test Results: Portable chest x-ray shows no acute pathology. EKG is sinus at 67 with no sign of acute ischemia. CBC is unremarkable. Chemistry studies were potassium 3.4, otherwise normal. Troponin is less than 0.015. Emergency Department Course and Treatment: Patient was given aspirin with EMS. She had no further chest pain here. Patient has been taking ibuprofen intermittently for her ovarian cyst and states she did not eat anything today. I was able to review her stress test from May 07 of this year that was unremarkable. I discussed with patient and at bedside I believe she likely does have reflux. She be started on Prilosec. She is given 40 mEq of potassium chloride here. Patient will follow with her primary care physician. Treatment Plan: [] Disposition: Discharge Impression: GERD This note was generated with [employer] dictation software. It may contain incorrect words, spelling, and punctuation that were not noted in review of the chart prior to signing ED Disposition - Plan for ED Patient: Disposition: Home or Assisted Living Chief Complaint: Chest Pain Instructions: ED GERD Prescriptions: Omeprazole [Prilosec] 20 mg PO DAILY #20 capsule Referrals: Yon Vazquez DO [Primary Care Provider] - As soon as possible What to do if you have Problems For any increased pain, shortness of breath, bleeding, nausea or vomiting, chest pain, or any unexpected problems, contact your Primary Care Provider. Call [facility] ([phone]) or report to the closest Emergency Room. Call 911 if necessary. 07/27/18 0134 <Electronically signed by Emily Bass MD> Date Emily Bass MD Cosigner Signature (If Indicated): Date CC: Yon Hernandez DO DISCHARGE INSTRUCTION Observed: 07/26/2018 Status: F Source: LEA 10:49 PM [facility] REPOSITORY [facility] Medical Records Department [address] [place] [address] Discharge Instruction 07/26/18 2248 MR#: [id number] Acct: [id number] Name: AZALIA HAWKINSHANNA Aguilar Rep #: [id number] : 1970 47 From: Emily Bass MD PCP: Yon Hernandez DO Status: REG ER ED Disposition - Plan for ED Patient: Disposition: Home or Assisted Living Chief Complaint: Chest Pain Instructions: ED GERD Prescriptions: Omeprazole [Prilosec] 20 mg PO DAILY #20 capsule Referrals: Yon Vazquez DO [Primary Care Provider] - As soon as possible What to do if you have Problems For any increased pain, shortness of breath, bleeding, nausea or vomiting, chest pain, or any unexpected problems, contact your Primary Care Provider. Call [facility] ([phone]) or report to the closest Emergency Room. Call 911 if necessary. 07/26/18 3920 <Electronically signed by Emily Bass MD> Date Emily Bass MD Cosigner Signature (If Indicated): Date CC: Yon Hernandez, DO CBC W/DIFF, AUTOMATED Collected: 07/26/2018 Status: F Source: LEA 9:30 PM [facility] REPOSITORY TYPE CODE TESTS RESULT OUT OF RANGE REFERENCE UNITS LAB L100.1000 4.4-11.0 K/mm3 Normal WBC 8.2 LAB L100.1200 4.2-5.4 M/mm3 Low RBC 4.02 LAB L100.1300 12.0-15.0 g/dl Normal HGB 12.7 LAB L100.1400 37-47 % Low HCT 36.3 LAB L100.1500 81-99 fL Normal MCV 90.3 LAB L100.1600 27.0-32.0 pg Normal MCH 31.6 LAB L100.1700 32-36 g/gl Normal MCHC 35.0 LAB L100.1810 11.6-14.6 % Normal RDW CV 12.6 LAB L100.1820 35.1-43.9 fl Normal RDW SD 41.8 LAB L100.1900 150-450 K/mm3 Normal PLT 232 LAB L100.2000 6.2-12.0 fl Normal MPV 9.0 LAB L100.2100 47-70 % Normal NEUT% 56.8 LAB L100.2200 19-41 % Normal LY% 31.0 LAB L100.2300 0-10 % Normal MONO% 8.7 LAB L100.2400 0-5 % Normal EO% 2.7 LAB L100.2500 0-1 % Normal BASO% 0.6 LAB L100.2550 0.0-0.9 % Normal IM GRAN % 0.200 Result Comment: IG% - Immature Granulocytes (promyelocytes, myelocytes and metamyelocytes) > 1% indicates that a LEFT SHIFT is Present. LAB L100.2620 2.0-7.7 X10 3/uL Normal Absolute Neut 4.7 LAB L100.2720 0.83-4.51 X10 3/ul Normal Absolute Lymph 2.54 Performed By: #### L100.0100 #### [facility] [address] [place], [place], [address] BASIC METABOLIC Collected: 07/26/2018 Status: F Source: [place] PROFILE (BMP) 9:30 PM [facility] REPOSITORY TYPE CODE TESTS RESULT OUT OF RANGE REFERENCE UNITS LAB L501.0100 74-106 mg/dL Normal GLU 92 Result Comment: Please note revised GLUCOSE reference range effective 2017. LAB L501.1000 7-18 mg/dL Normal BUN 10 LAB L501.1100 0.55-1.02 mg/dL Normal CREAT,SERUM 0.69 Result Comment: The validity of the calculated GFR AND GFRAA in patients over 70 years has not been determined. Clinical correlation is essential. LAB L501.1110 >60 mL/min Normal EST GFR 97 Result Comment: Non- GFR Calc LAB L501.1115 >60 mL/min Normal EST GFR - AA 117 Result Comment: GFR Calc LAB L501.1255 ml/min Normal Estimated CRCL 94.36 LAB L501.1300 10-20 RATIO Normal BUN/CRE 14.5 LAB L501.2200 8.5-10 mg/dL Low .1 CA 8.4 LAB L501.5300 136-14 mmol/L Normal 5 NA 141 LAB L501.5600 3.5-5. mmol/L Low 1 K 3.4 LAB L501.5900 98-107 mmol/L High CL 109 LAB L501.6100 21.0-3 mmol/L Normal 2.0 CO2 25.0 LAB L501.6200 5-15 Normal GAP 7 Performed By: #### L500.2500, L501.4010 #### [facility] [address] [place], [address] TROPONIN-I Collected: 07/26/2018 Status: F Source: [place] 9:30 PM [facility] REPOSITORY TYPE CODE TESTS RESULT OUT OF RANGE REFERENCE UNITS LAB L501.4010 <0.045 ng/mL Normal < 0.015 TROPONIN-I Result Comment: TROPONIN-I EXPECTED VALUES <0.045 Negative 0.045 - 0.590 Consistent with Cardiac Damage > OR = 0.600 Critical Value Not every elevated troponin is indicative of GA. These values should be used with clinical judgement in examining the patient's clinical picture for diagnosis. To establish a diagnosis of GA versus myocardial injury, there must be a demonstrated rise and/or fall in the troponin values, in addition to ischemic symptoms, EKG changes, new regional wall motion abnormality, and/or angiographical evidence. PLEASE NOTE: REFERENCE RANGES EDITED 18 Performed By: #### L500.2500, L501.4010 #### [facility] [address] [place], [address] CHEST 1 VIEW Observed: 07/26/2018 Status: F Source: [place] (PORTABLE) 9:27 PM [facility] REPOSITORY [facility] Imaging Services [address] [place] [address] Chest 1 View (Portable) MR#: [id number] Acct: [id number] Name: NORMA HAWKINS Rep #: [id number] : 1970 F 47 From: Mick Love MD PCP: Yon Hernandez DO Status: PRE ER Study: Chest 1 View (Portable) Date of Exam: 07/26/18 Exam# [id number] Ordering Dr: Dickson Clifton MD STUDY: X-RAY CHEST REASON FOR EXAM: Female, 47 years old. Chest pain TECHNIQUE: Frontal view of the chest COMPARISON: 05/03/2018 FINDINGS: The lungs are clear. There are no pleural effusions. There is no pneumothorax. The heart is normal in size. The visualized osseous structures are within normal limits. RAD/Chest 1 View (Portable) IMPRESSION: No acute thoracic pathology. Electronically Signed: Mick Love, at 22:00 EDT Tel , Service support , CC: DICKSON CLIFTON MD; Yon Hernandez DO Entertainment Reporter: Signed CNOV Observed: 07/13/2018 Status: COMPLETED Source: GUYS 11:00 AM [facility] REPOSITORY Office Visit (WOOB) NORMA HAWKINS ([id number]) 1970 F Date Time Provider Department 07/13/18 11:00 AM ALICIA SLATER WOBHUMI During your visit today, we recorded the following information about you: Blood pressure Weight 102/60 58.1 kg Alicia Crawford MD 07/13/2018 12:04 PM Signed Norma Aguilar Josefina is a 47 year old female who presents for follow up pelvic pain and ovarian cyst. Pt reports that last week 07/07/[address] Castle for the severe pain. Pt reports went to [facility] on 07/05/18 c/o severe abdominal pain that she rated 100/10 - she had nausea- pain radiated from umbilical area down and to the back. Pt reports now pain is much improved rates it 3-5/10- nothing makes pain better or worse- it will be intermittent pain that is more on RLQ. Pt states had some nausea about 4 days ago but nothing since that time. No changes in BM no urinary concerns. Pt offers no other concerns today. PAST MEDICAL HISTORY Diagnosis Date - Diverticulosis - S/P lumbar fusion L4/5 - Tobacco abuse disorder PAST SURGICAL HISTORY Procedure Laterality Date - EGD W/O OR W/BRUSH/WASH 02/14/16 EGD with mac - LAPAROSCOPIC CHOLEYCYSTECTOMY 11/26/2015 - LUMBAR SPINE FUSION COMBINED 2007 lumbar fusion L4-L5 - OVARIAN CYSTECTOMY 84 - REMOVAL OF TONSILS; AGE 12 OR OVER 83 - S BALLOON,UTERINE ABLATION [address] Sutton - TUBAL LIGATION, 89 FAMILY HISTORY Problem Relation Age of Onset - Hypertension Father - other (Lung Cancer) Father mets to brain - Heart Mother - Hypertension Mother - Kidney Disease Mother - Cervical Cancer Paternal Grandmother and ovarian - Breast Cancer Maternal Aunt - Kidney Disease Daughter hydronephrosis - Colon Cancer Other P-cousin - Cancer Paternal Uncle throat - other (Reilly's syndrome) Other Social History Marital status: Spouse name: Dickson Years of education: 11 Number of children: 4 Occupational History Occupation Employer Comment [employer] Social History Main Topics Smoking status: Current Every Day Smoker Packs/day: 1.00 Years: 27.00 Types: Cigarettes Start date: 11/16/1988 Last attempt to quit: 06/11/2017 Smokeless tobacco: Never Used Comment: 1/2 to 1 pack per day Alcohol use: Yes Comment: Occasionally Drug use: No Sexual activity: Yes control/protection: Tubal Ligation Comment: Ablation Current Outpatient Prescriptions: HYDROcodone-acetaminophen (NORCO) 5-325 mg per tablet Take 1 tablet by mouth every 6 hours as needed. naproxen (NAPROSYN) 500 mg tablet Take 500 mg by mouth twice daily with meals. buPROPion XL (WELLBUTRIN XL) 150 mg 24 hr tablet Take 1 tablet by mouth once daily. albuterol HFA (VENTOLIN HFA) 90 mcg/actuation inhaler Inhale 2 Puffs as instructed every 4 hours as needed for Wheezing/Shortness of Breath. OLIVE OIL ORAL Take 4,000 mg by mouth once daily. coconut oil ondansetron (ZOFRAN, HYDROCHLORIDE,) 4 mg tablet Take 1 tablet by mouth once daily as needed (for nausea.). ibuprofen (ADVIL) 200 mg tablet Take 200 mg by mouth every 6 hours as needed. No current facility-administered medications for this visit. Allergies As of Date: 07/13/2018 Allergen Noted Reaction CODEINE 12/23/2011 Hives FENTANYL 12/23/2011 Other: See Comments Fully Assessed 07/13/2018 REVIEW OF SYSTEMS Abdomen: RLQ pain denies current nausea or vomiting Bladder: no dysuria .. Expanded ROS: GENERAL: Negative for fever Allergies and current medication updated:Yes EXAM: BP 102/60 Wt 128 lb (58.1kg) GENERAL: pleasant, female in no apparent distress HEENT: atraumatic NECK: full range of motion DERMATOLOGY: Normal, without lesions, non-icteric and non-hirsute ABDOMEN: soft, no masses, Mild tenderness in RLQ, rebound Absent and guarding Absent PELVIC: deferred BIMANUAL: deferred NEURO: alert and oriented x3,exam grossly non-focal EXTREMITIES: normal Hx significant for diverticulosis, tubal ligation, endometrial ablation. Pelvic US: Uterus 6x2x3.9 cm. Right ovary 3.6x2.4x1.5 cm. Left adnexa with 3.5x1.6x3.9 cm simple fluid collection, possible ovarian vs paratubal cyst. CTAP w/ contrast: Fluid filled elongated structure in left adnexa likely fluid filled loop small bowel. WBC 10.3 in ED. ASSESSMENT AND PLAN: Encounter Diagnosis ICD-10-CM 1. Pelvic pain in female R10.2 2. Ovarian cyst, left N83.202 3.considering heamtosalpix 4. Consider diagnostic laparoscopy with cystectomy, salpingectomy- possible appendectomy if indicated 5. Plan to repeat ultrasound in 4-6 weeks- if pain gets worse or has N/V/Fevers or severe pain Alicia Crawford MD Referring Provider: YON VAZQUEZ [[id number]] Allergies As of Date: 07/13/2018 Noted Allergy Reaction CODEINE 12/23/2011 4 - Hives FENTANYL 12/23/2011 14 - Other: See Comments Comments: Slow heart rate shallow resp. Date Reviewed: 07/13/2018 Reviewed by: Sana Byrd Ma - Fully Assessed Reason for Visit: Follow Up [171] Primary Visit Diagnosis:Pelvic pain in female [R10.2] Other Visit Diagnosis:Ovarian cyst, left [N83.202] Prescriptions as of 07/13/2018 Sig: HYDROCODONE 5 MG-ACETAMINOPHE* Take 1 tablet by mouth every * NAPROXEN 500 MG TABLET Take 500 mg by mouth twice da* BUPROPION XL 150 MG TAB Take 1 tablet by mouth once d* ALBUTEROL SULFATE HFA 90 MCG/* Inhale 2 Puffs as instructed * OLIVE OIL ORAL Take 4,000 mg by mouth once d* ONDANSETRON HCL 4 MG TABLET Take 1 tablet by mouth once d* IBUPROFEN 200 MG TABLET Take 200 mg by mouth every 6 * Problem List As Of Date 07/13/2018 Noted Resolved PMDD (premenstrual dysphoric disorder) [F32.81] INVALID FOR*05/25/2013 Breast hypertrophy in female [N62] INVALID FOR* S/P endometrial ablation [Z98.890] INVALID FOR* Microscopic hematuria [R31.29] INVALID FOR* Left pelvic adnexal fluid collection [R68.89] INVALID FOR* Pelvic pain [R10.2] INVALID FOR* Encounter Status:Closed by ALICIA JONES MD on 07/13/18 PROGRESS Observed: 07/13/2018 Status: COMPLETED Source: GUYS 10:45 AM [facility] REPOSITORY HNO ID: [id number] Author: Alicia Jones Service: (none) Author Type: Physician Type: Progress Notes Filed: 07/13/2018 12:04 PM Note Text: Norma Hawkins is a 47 year old female who presents for follow up pelvic pain and ovarian cyst. Pt reports that last week 07/07/[address] Castle for the severe pain. Pt reports went to [facility] on 07/05/18 c/o severe abdominal pain that she rated 100/10 - she had nausea- pain radiated from umbilical area down and to the back. Pt reports now pain is much improved rates it 3-5/10- nothing makes pain better or worse- it will be intermittent pain that is more on RLQ. Pt states had some nausea about 4 days ago but nothing since that time. No changes in BM no urinary concerns. Pt offers no other concerns today. PAST MEDICAL HISTORY Diagnosis Date - Diverticulosis - S/P lumbar fusion L4/5 - Tobacco abuse disorder PAST SURGICAL HISTORY Procedure Laterality Date - EGD W/O OR W/BRUSH/WASH 02/14/16 EGD with mac - LAPAROSCOPIC CHOLEYCYSTECTOMY 11/26/2015 - LUMBAR SPINE FUSION COMBINED 2007 lumbar fusion L4-L5 - OVARIAN CYSTECTOMY 84 - REMOVAL OF TONSILS; AGE 12 OR OVER 83 - S BALLOON,UTERINE ABLATION [address] 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 naproxen (NAPROSYN) 500 mg tablet Take 500 mg by mouth twice daily with meals. buPROPion XL (WELLBUTRIN XL) 150 mg 24 hr tablet Take 1 tablet by mouth once daily. albuterol HFA (VENTOLIN HFA) 90 mcg/actuation inhaler Inhale 2 Puffs as instructed every 4 hours as needed for Wheezing/Shortness of Breath. OLIVE OIL ORAL Take 4,000 mg by mouth once daily. coconut oil ondansetron (ZOFRAN, HYDROCHLORIDE,) 4 mg tablet Take 1 tablet by mouth once daily as needed (for nausea.). ibuprofen (ADVIL) 200 mg tablet Take 200 mg by mouth every 6 hours as needed. No current facility-administered medications for this visit. Allergies As of Date: 07/13/2018 Allergen Noted Reaction CODEINE 12/23/2011 Hives FENTANYL 12/23/2011 Other: See Comments Fully Assessed 07/13/2018 REVIEW OF SYSTEMS Abdomen: RLQ pain denies current nausea or vomiting Bladder: no dysuria .. Expanded ROS: GENERAL: Negative for fever Allergies and current medication updated:Yes EXAM: BP 102/60 Wt 128 lb (58.1kg) GENERAL: pleasant, female in no apparent distress HEENT: atraumatic NECK: full range of motion DERMATOLOGY: Normal, without lesions, non-icteric and non-hirsute ABDOMEN: soft, no masses, Mild tenderness in RLQ, rebound Absent and guarding Absent PELVIC: deferred BIMANUAL: deferred NEURO: alert and oriented x3,exam grossly non-focal EXTREMITIES: normal Hx significant for diverticulosis, tubal ligation, endometrial ablation. Pelvic US: Uterus 6x2x3.9 cm. Right ovary 3.6x2.4x1.5 cm. Left adnexa with 3.5x1.6x3.9 cm simple fluid collection, possible ovarian vs paratubal cyst. CTAP w/ contrast: Fluid filled elongated structure in left adnexa likely fluid filled loop small bowel. WBC 10.3 in ED. ASSESSMENT AND PLAN: Encounter Diagnosis ICD-10-CM 1. Pelvic pain in female R10.2 2. Ovarian cyst, left N83.202 3.considering heamtosalpix 4. Consider diagnostic laparoscopy with cystectomy, salpingectomy- possible appendectomy if indicated 5. Plan to repeat ultrasound in 4-6 weeks- if pain gets worse or has N/V/Fevers or severe pain Alicia Crawford MD CNOV Observed: 07/07/2018 Status: COMPLETED Source: GUYS 2:15 PM [facility] REPOSITORY Office Visit (WOOB) NORMA HAWKINS ([id number]) 1970 F Date Time Provider Department 07/07/18 2:15 PM LUPE GRANDE During your visit today, we recorded the following information about you: Blood pressure Weight 106/62 59.1 kg Lupe Grande MD 07/07/2018 5:08 PM Signed Norma Aguilar Josefina is a 47 year old female who presents for problem visit for LLQ pain follow up. HPI: A few days ago she was standing, and out of nowhere had lower pelvic pain. Constant pain across her pelvis with contraction-type pain that was off-and-on on top of the constant pain. Could not button pants because of how bad the pain was. Pain was worse with movement and touch. Pain lasted 4- 5 hours, she went to the ED and was given pain medication. Has been taking Vicodin since the ED visit, but did not take today so she could assess her pain while not on pain medication. Pain today is like a dull ache, with occasional stabbing in LLQ that radiates into groin. Has never had this type of pain before. Pain overall is improving since ED visit. Associated symptoms: Nausea. No fevers, chills, vomiting, diarrhea. Regular BM's. Last BM this morning. No dysuria. +Increased urinary frequency. No hx of diverticulitis. No AUB, vaginal discharge. Uterine ablation 2011, no menses since. No menopausal symptoms. Sexually active. No concern for STD's. PAST MEDICAL HISTORY Diagnosis Date - Diverticulosis - S/P lumbar fusion L4/5 - Tobacco abuse disorder PAST SURGICAL HISTORY Procedure Laterality Date - EGD W/O OR W/BRUSH/WASH 02/14/16 EGD with mac - LAPAROSCOPIC CHOLEYCYSTECTOMY 11/26/2015 - LUMBAR SPINE FUSION COMBINED 2007 lumbar fusion L4-L5 - OVARIAN CYSTECTOMY 84 - REMOVAL OF TONSILS; AGE 12 OR OVER 83 - S BALLOON,UTERINE ABLATION [address] 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 naproxen (NAPROSYN) 500 mg tablet Take 500 mg by mouth twice daily with meals. buPROPion XL (WELLBUTRIN XL) 150 mg 24 hr tablet Take 1 tablet by mouth once daily. albuterol HFA (VENTOLIN HFA) 90 mcg/actuation inhaler Inhale 2 Puffs as instructed every 4 hours as needed for Wheezing/Shortness of Breath. ondansetron (ZOFRAN, HYDROCHLORIDE,) 4 mg tablet Take 1 tablet by mouth once daily as needed (for nausea.). ibuprofen (ADVIL) 200 mg tablet Take 200 mg by mouth every 6 hours as needed. OLIVE OIL ORAL Take 4,000 mg by mouth once daily. coconut oil No current facility-administered medications for this visit. Allergies As of Date: 07/07/2018 Allergen Noted Reaction CODEINE 12/23/2011 Hives FENTANYL 12/23/2011 Other: See Comments Fully Assessed 07/07/2018 REVIEW OF SYSTEMS Abdomen: See HPI Bladder: See HPI. Expanded ROS: See HPI Allergies and current medication updated:Yes EXAM: BP 106/62 Wt 130 lb 3.2 oz (59.1kg) GENERAL: pleasant, female in no apparent distress, appears comfortable HEENT: Normocephalic and atraumatic NECK: full range of motion DERMATOLOGY: Normal and without lesions CHEST: Normal inspiratory effort ABDOMEN: soft, no masses, +diffuse tenderness across entire abdomen including upper and lower abdomen, non-distended, no rebounding, no guarding, no rigidity PELVIC: external genitalia normal, normal Bartholin's glands, urethra, [place]'s glands, no vulvar lesions, no cervical lesions, good vaginal support, physiologic discharge present, normal appearing perineal body and perianal region BIMANUAL: uterus normal size, shape and consistency, no adnexal masses and +diffuse tenderness NEURO: alert and oriented x3,exam grossly non-focal EXTREMITIES: normal ASSESSMENT AND PLAN: Encounter Diagnosis ICD-10-CM 1. Adnexal mass N94.9 PELVIC US WHI Hx significant for diverticulosis, tubal ligation, endometrial ablation. Pelvic US: Uterus 6x2x3.9 cm. Right ovary 3.6x2.4x1.5 cm. Left adnexa with 3.5x1.6x3.9 cm simple fluid collection, possible ovarian vs paratubal cyst. CTAP w/ contrast: Fluid filled elongated structure in left adnexa likely fluid filled loop small bowel. WBC 10.3 in ED. ? Diffuse tenderness on exam, non-localized, no acute peritoneal signs ? Patient did not take pain medication today and pain is present still but overall improving ? Pelvic US showed 3.9 cm simple fluid collection, possibly ovarian vs paratubal cyst ? CTAP w/ contrast showed fluid filled elongated structure ? Reviewed return precautions/when to go to the ED for cyst rupture and torsion with the patient ? Will get follow up US in 6 weeks to re-assess, and have her see me after the US to discuss further management ? Told her to call to make an appointment with me sooner if the pain begins to worsen again Lupe Grande, Referring Provider: YON VAZQUEZ [[id number]] Allergies As of Date: 07/07/2018 Noted Allergy Reaction CODEINE 12/23/2011 4 - Hives FENTANYL 12/23/2011 14 - Other: See Comments Comments: Slow heart rate shallow resp. Date Reviewed: 07/07/2018 Reviewed by: Crystal Vargas - Fully Assessed Reason for Visit: Ovarian Cyst [288] Primary Visit Diagnosis:Adnexal mass [N94.9] Order(s):PELVIC US WHI [[id number]] Order #: [id number]: 1 FUTURE PELVIC US WHI [[id number]] Order #: [id number]: 1 Prescriptions as of 07/07/2018 Sig: HYDROCODONE 5 MG-ACETAMINOPHE* Take 1 tablet by mouth every * NAPROXEN 500 MG TABLET Take 500 mg by mouth twice da* BUPROPION XL 150 MG TAB Take 1 tablet by mouth once d* ALBUTEROL SULFATE HFA 90 MCG/* Inhale 2 Puffs as instructed * ONDANSETRON HCL 4 MG TABLET Take 1 tablet by mouth once d* IBUPROFEN 200 MG TABLET Take 200 mg by mouth every 6 * OLIVE OIL ORAL Take 4,000 mg by mouth once d* Problem List As Of Date 07/07/2018 Noted Resolved PMDD (premenstrual dysphoric disorder) [F32.81] INVALID FOR*05/25/2013 Breast hypertrophy in female [N62] INVALID FOR* S/P endometrial ablation [Z98.890] INVALID FOR* Microscopic hematuria [R31.29] INVALID FOR* Left pelvic adnexal fluid collection [R68.89] INVALID FOR* Pelvic pain [R10.2] INVALID FOR* Level of Service: EST PATIENT VISIT LEVEL 3 [[id number]] Follow-up and Disposition History Recorded Encounter Status:Closed by LUPE GRANDE MD on 07/07/18 PROGRESS Observed: 07/07/2018 Status: COMPLETED Source: [facility] 2:12 PM [facility] REPOSITORY HNO ID: [id number] Author: Lupe Grande Service: (none) Author Type: Physician Type: Progress Notes Filed: 07/07/2018 5:08 PM Note Text: Norma Hawkins is a 47 year old female who presents for problem visit for LLQ pain follow up. HPI: A few days ago she was standing, and out of nowhere had lower pelvic pain. Constant pain across her pelvis with contraction-type pain that was off-and-on on top of the constant pain. Could not button pants because of how bad the pain was. Pain was worse with movement and touch. Pain lasted 4-5 hours, she went to the ED and was given pain medication. Has been taking Vicodin since the ED visit, but did not take today so she could assess her pain while not on pain medication. Pain today is like a dull ache, with occasional stabbing in LLQ that radiates into groin. Has never had this type of pain before. Pain overall is improving since ED visit. Associated symptoms: Nausea. No fevers, chills, vomiting, diarrhea. Regular BM's. Last BM this morning. No dysuria. +Increased urinary frequency. No hx of diverticulitis. No AUB, vaginal discharge. Uterine ablation 2011, no menses since. No menopausal symptoms. Sexually active. No concern for STD's. PAST MEDICAL HISTORY Diagnosis Date - Diverticulosis - S/P lumbar fusion L4/5 - Tobacco abuse disorder PAST SURGICAL HISTORY Procedure Laterality Date - EGD W/O OR W/BRUSH/WASH 02/14/16 EGD with mac - LAPAROSCOPIC CHOLEYCYSTECTOMY 11/26/2015 - LUMBAR SPINE FUSION COMBINED 2007 lumbar fusion L4-L5 - OVARIAN CYSTECTOMY 84 - REMOVAL OF TONSILS; AGE 12 OR OVER 83 - S BALLOON,UTERINE ABLATION [address] 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 naproxen (NAPROSYN) 500 mg tablet Take 500 mg by mouth twice daily with meals. buPROPion XL (WELLBUTRIN XL) 150 mg 24 hr tablet Take 1 tablet by mouth once daily. albuterol HFA (VENTOLIN HFA) 90 mcg/actuation inhaler Inhale 2 Puffs as instructed every 4 hours as needed for Wheezing/Shortness of Breath. ondansetron (ZOFRAN, HYDROCHLORIDE,) 4 mg tablet Take 1 tablet by mouth once daily as needed (for nausea.). ibuprofen (ADVIL) 200 mg tablet Take 200 mg by mouth every 6 hours as needed. OLIVE OIL ORAL Take 4,000 mg by mouth once daily. coconut oil No current facility-administered medications for this visit. Allergies As of Date: 07/07/2018 Allergen Noted Reaction CODEINE 12/23/2011 Hives FENTANYL 12/23/2011 Other: See Comments Fully Assessed 07/07/2018 REVIEW OF SYSTEMS Abdomen: See HPI Bladder: See HPI. Expanded ROS: See HPI Allergies and current medication updated:Yes EXAM: BP 106/62 Wt 130 lb 3.2 oz (59.1kg) GENERAL: pleasant, female in no apparent distress, appears comfortable HEENT: Normocephalic and atraumatic NECK: full range of motion DERMATOLOGY: Normal and without lesions CHEST: Normal inspiratory effort ABDOMEN: soft, no masses, +diffuse tenderness across entire abdomen including upper and lower abdomen, non-distended, no rebounding, no guarding, no rigidity PELVIC: external genitalia normal, normal Bartholin's glands, urethra, [place]'s glands, no vulvar lesions, no cervical lesions, good vaginal support, physiologic discharge present, normal appearing perineal body and perianal region BIMANUAL: uterus normal size, shape and consistency, no adnexal masses and +diffuse tenderness NEURO: alert and oriented x3,exam grossly non-focal EXTREMITIES: normal ASSESSMENT AND PLAN: Encounter Diagnosis ICD-10-CM 1. Adnexal mass N94.9 PELVIC US WHI Hx significant for diverticulosis, tubal ligation, endometrial ablation. Pelvic US: Uterus 6x2x3.9 cm. Right ovary 3.6x2.4x1.5 cm. Left adnexa with 3.5x1.6x3.9 cm simple fluid collection, possible ovarian vs paratubal cyst. CTAP w/ contrast: Fluid filled elongated structure in left adnexa likely fluid filled loop small bowel. WBC 10.3 in ED. ? Diffuse tenderness on exam, non-localized, no acute peritoneal signs ? Patient did not take pain medication today and pain is present still but overall improving ? Pelvic US showed 3.9 cm simple fluid collection, possibly ovarian vs paratubal cyst ? CTAP w/ contrast showed fluid filled elongated structure ? Reviewed return precautions/when to go to the ED for cyst rupture and torsion with the patient ? Will get follow up US in 6 weeks to re-assess, and have her see me after the US to discuss further management ? Told her to call to make an appointment with me sooner if the pain begins to worsen again Lupe Grande DO EMERGENCY REPORT Observed: 07/06/2018 Status: F Source: [facility] 7:14 AM [facility] EMERGENCY ROOM REPORT NAME ACCOUNT SEX AGE ADMIT DISCHARGE PT MED. RECORD# NUMBER DATE DATE TYPE JOSEFINA [id number] F 47 07/04/18 07/04/18 3 [facility] [id number] ROOM: ER DATE OF : 1970 DICTATING PHYSICIAN: Oliver Garcia ADDENDUM DIAGNOSTIC DATA: Bloodwork showed a white count of 10.3, hemoglobin 15.2, hematocrit 43.5, and platelet count 313,000. Amylase was normal at 52. Lipase was normal at 10. CRP was less than 0.1. Sodium is 138, potassium 3.7, chloride 108, CO2 of 21.2, BUN 13, creatinine 0.7, and glucose 99. AST was 12. ALT was 8. Alkaline phosphatase was 60. Total bilirubin was 0.6. Anion gap was normal at 13. Urinalysis showed a negative nitrite and a negative leukocyte esterase. There were no white cells and 0-5 red cells in the microscopic with no bacteria and a few epithelial cells. The patient's test came back negative. As noted, her CRP was less than 0.1 with a normal white count. The radiologist called me and discussed some of the findings of the CT scan of the abdomen and pelvis. The CT scan was read as showing some intrahepatic and extrahepatic biliary ductal dilatation most pronounced in the left lobe. Recommended correlation with laboratory values and liver MRI with and without contrast. Also, there was a large left gonadal vein and numerous left-sided pelvic vessels to correlate for symptoms of pelvic congestion syndrome. EKG was done at 1428 hours and showed a sinus bradycardia at a rate of [address]-segment changes were noted. Garner is approximately 60 degrees. EMERGENCY DEPARTMENT COURSE AND TREATMENT: I went back and examined the patient afterwards, and she still is very diffusely tender. I do not note any focal tenderness at all, but she says now that the pain is worse on the left side. Earlier, she had told me the pain was worse on the right side. Her abdomen is soft. She is not as tender as she was when she presented here, but we have medicated her for the pain as well, but she is cloth desizing range tender. I was concerned about a possible ovarian torsion that may not have shown up on the CT scan, so I went ahead and ordered a pelvic ultrasound. The radiologist called me back and said that due to the amount of air-filled bowel loops in that left lower quadrant they doubted they would be able to actually visualize the ovary if we did the ultrasound now. She felt a better plan would be to do the pelvic ultrasound in the morning and keep the patient NPO after midnight so that the air could clear out of those loops of bowel in the left lower quadrant so that they could actually visualize the left ovary. Presently, the radiologist is talking with the staff to arrange a time for tomorrow morning to do this. I discussed it with the patient and her Page 1 of 2 [facility] Report family, and they are agreeable with this. She is feeling considerably better now than she was. We discussed the differential diagnoses of abdominal pain, and with this sudden onset of pain I thought maybe she had a kidney stone, although the pain has really not been unilateral; it has been very diffuse and does not go into her back. The CT scan did not show any kidney stones. At this point, we will get the pelvic ultrasound in the morning and rule out any kind of ovarian pathology. I am going to place the patient on Naprosyn 500 mg one p.o. b.i.d., dispense #20 with no refill, and Parchman 5/325 mg one every 6 hours as needed for pain, dispense #10 with no refill. She is to return here in the morning for the pelvic ultrasound. If her symptoms get worse in the meantime or if any other problems develop, return here to the Emergency Department. Dr. Murillo, the radiologist, did talk to me about the appendix. She could see it well, and it was full of air. She did check the thickness of the appendiceal wall, and it was on the upper limits of normal. It did not look inflamed. At this point, I did not feel this was appendicitis, and certainly her bloodwork does fit with that. We will see how she progresses through the night and what the ultrasound shows in the morning and then reevaluate. I will find out who the patient's family practice doctor is too, and we will arrange for some follow-up with them in the office this coming week. Dictated By: Oliver Garcia DO 07/04/18 15:14 JOB #: [id number] Transcribed By: angelo 07/05/18 15:32 Electronically signed by: E-Sign: Dr. Oliver Garcia D.O. 07/06/18 07:13 Page 2 of 2 [facility] Emergency Room Report EMERGENCY REPORT Observed: 07/06/2018 Status: F Source: [facility] 7:14 AM [facility] EMERGENCY ROOM REPORT NAME ACCOUNT SEX AGE ADMIT DISCHARGE PT MED. RECORD# NUMBER DATE DATE TYPE JOSEFINA [id number] F 47 07/04/18 07/04/18 3 [facility] [id number] ROOM: ER DATE OF : 1970 DICTATING PHYSICIAN: Oliver Garcia ADDENDUM: Please send a copy of this dictation to Dr. Vazquez at [facility], that is her primary care physician, and she has an appointment to see Dr. Vazquez tomorrow morning at 10 a.m. She has been scheduled here for the pelvic ultrasound at 7 a.m. Dictated By: Oliver Garcia DO 07/04/18 15:28 JOB #: [id number] Transcribed By: am 07/05/18 14:32 Electronically signed by: E-Sign: Dr. Oliver Garcia D.O. 07/06/18 07:13 Page 1 of 1 [facility] Room Report EMERGENCY REPORT Observed: 07/06/2018 Status: F Source: [facility] 7:14 AM [facility] EMERGENCY ROOM REPORT NAME ACCOUNT SEX AGE ADMIT DISCHARGE PT MED. RECORD# NUMBER DATE DATE TYPE JOSEFINA [id number] F 47 07/04/18 07/04/18 3 [facility] [id number] ROOM: ER DATE OF : 1970 DICTATING PHYSICIAN: Oliver Garcia Time seen: 1:20 p.m. CHIEF COMPLAINT/HISTORY OF PRESENT ILLNESS: This is a 47-year-old white female complaining of diffuse mid region abdominal pain that started rather suddenly around 10 a.m. this morning. She states that the pain is stabbing in nature. She states that the pain is worse in the right lower quadrant. That area of the abdomen, the pain feels different than the rest of the abdomen. She rates the pain as a 9 on a severity scale of 1 to 10. She describes the pain as sharp in nature. The pain was worse with the car ride in here with either movement or hitting bumps. She does complain of nausea, but denies any vomiting. PAST MEDICAL HISTORY: Diverticulosis. She did have a polyp removed one year ago. The colonoscopy at that time was done because she had blood in her stools. Dr. Hillman, a general surgeon at [facility], was the one who did the colonoscopy and polypectomy. PAST SURGICAL HISTORY: Cholecystectomy. She has had previous back surgery and tubal ligation. She still has her appendix. Colonoscopy about a year ago as noted above with a polypectomy. ALLERGIES: She is allergic to codeine which causes hives. SOCIAL HISTORY: The patient does smoke one pack per day. She denies the use of alcohol or illicit drugs. She does live with her family at home. REVIEW OF SYSTEMS: The patient denies any chest pain, shortness of breath, cough, sputum and wheezing. He does admit to abdominal pain. He does admit to some nausea, but denies any vomiting. Denies any diarrhea, constipation, melena, hematochezia, headache, numbness, unsteady gait, weakness, neck or back pain, joint pain, skin rash or swelling, hives, hay fever, swollen glands. Further review of systems are negative. PHYSICAL EXAMINATION: Blood pressure 150/90, pulse 60, respirations 18, temperature 98.4, pulse ox is 100% on room air. Weight is 130 pounds. The patient is alert and oriented x3. She appears in moderate to severe distress secondary to abdominal pain. She does look very uncomfortable. She is tearful secondary [facility] pain and somewhat restless. HEENT: Head appears atraumatic. Pupils are equal and reactive to light. Red reflex intact bilaterally. Extraocular muscles intact. No conjunctival injection. No scleral icterus or lid edema. Nose: No rhinorrhea or epistaxis. Mouth: Mucous membranes are moist. No pharyngeal erythema. Uvula is midline and elevates. Neck is supple. Trachea is midline. No JVD or lymphadenopathy. No posterior cervical tenderness. No nuchal rigidity. Lungs are clear to auscultation in all lung [place]. No adventitious sounds are noted. No accessory muscle use. CVS: Heart rate and rhythm is regular without murmur. Abdomen is soft. The patient has diffuse palpable tenderness across the periumbilical region of the abdomen on both the left and right sides. Although, she is also tender in the right lower quadrant of the abdomen. Bowel sounds are present x4 quadrants and mildly hyperactive. She does exhibit voluntary guarding with palpation of the abdomen, but no involuntary guarding. No rebound. No abdominal distension. No hepatosplenomegaly. Back exhibits no midline or paraspinal regional tenderness. No increased paraspinal muscle rigidity. Negative Dallas sign. Extremities: No edema or cyanosis. Peripheral pulses are intact. No motor or sensory deficits noted. Hand process pumper is strong and symmetric. Skin is warm and dry. No diaphoresis or rash. Neurologic: The patient is alert and oriented x4. No motor or sensory deficits are noted. Normal speech. The patient is pleasant and cooperative with an anxious affect. DIAGNOSIS: PLAN/DISPOSITION: We will obtain a CT scan of the abdomen and pelvis along with some screening blood work and urinalysis. I did order Dilaudid 1 mg Phenergan 12.5 IV for the pain because the patient took [address] in here so I could not give her any Toradol. She has not had any abdominal pain of this severity, especially of this sudden onset in the past. This is a new finding. We will then reevaluate. Dictated By: Oliver Garcia DO 07/04/18 14:03 JOB #: [id number] Transcribed By: lucien 07/05/18 13:37 Electronically signed by: E-Sign: Dr. Oliver Garcia D.O. 07/06/18 07:13 Page 2 of 2 [facility] Emergency Room Report PROGRESS Observed: 07/05/2018 Status: COMPLETED Source: [facility] 12:06 PM [facility] REPOSITORY HNO ID: [id number] Author: Yon Vazquez Service: (none) Author Type: Physician Type: Progress Notes Filed: 07/06/2018 7:30 AM Note Text: CC: Norma Hawkins is a 47 year old female who presents to the office for EMERGENCY DEPARTMENT follow up HPI: Here for EMERGENCY DEPARTMENT follow up, experienced severe LLQ and RLQ abdominal pain that radiated to epigastric area, associated with nausea and inability for anything to touch her abdominal skin due to extreme nature of pain, this started 1-2 days ago, she was seen at [facility]. Had CT abd/pelvis with concerns for left pelvic ovarian vs. Tubal cyst at 4 cm size. She was given pain medications and discharged home for US pelvis today at the hospital. She had pelvic US completed this AM and is asking for results. Abdominal pain is manageable with nausea medications from home as well as the Parchman which was given in the EMERGENCY DEPARTMENT She hasn't seen [facility] [employer] [facility] yet PAST MEDICAL HISTORY Diagnosis Date - Diverticulosis - S/P lumbar fusion L4/5 - Tobacco abuse disorder PAST SURGICAL HISTORY Procedure Laterality Date - EGD W/O OR W/BRUSH/WASH 02/14/16 EGD with mac - LAPAROSCOPIC CHOLEYCYSTECTOMY 11/26/2015 - LUMBAR SPINE FUSION COMBINED 2007 lumbar fusion L4-L5 - OVARIAN CYSTECTOMY 84 - REMOVAL OF TONSILS; AGE 12 OR OVER 83 - S BALLOON,UTERINE ABLATION [address] Sutton - TUBAL LIGATION, 89 Current Outpatient Prescriptions: HYDROcodone-acetaminophen (NORCO) 5-325 mg per tablet Take 1 tablet by mouth every 6 hours as needed. naproxen (NAPROSYN) 500 mg tablet Take 500 mg by mouth twice daily with meals. buPROPion XL (WELLBUTRIN XL) 150 mg 24 hr tablet Take 1 tablet by mouth once daily. albuterol HFA (VENTOLIN HFA) 90 mcg/actuation inhaler Inhale 2 Puffs as instructed every 4 hours as needed for Wheezing/Shortness of Breath. ondansetron (ZOFRAN, HYDROCHLORIDE,) 4 mg tablet Take 1 tablet by mouth once daily as needed (for nausea.). ibuprofen (ADVIL) 200 mg tablet Take 200 mg by mouth every 6 hours as needed. OLIVE OIL ORAL Take 4,000 mg by mouth once daily. coconut oil No current facility-administered medications for this visit. ALLERGIES Allergen Reactions - Codeine Hives - Fentanyl Other: See Comments Slow heart rate shallow resp. 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 Social History Main Topics Smoking status: Current Every Day Smoker Packs/day: 1.00 Years: 27.00 Types: Cigarettes Start date: 11/16/1988 Last attempt to quit: 06/11/2017 Smokeless tobacco: Never Used Comment: 1/2 to 1 pack per day Alcohol use: Yes Comment: Occasionally Drug use: No Sexual activity: Yes control/protection: Tubal Ligation Comment: Ablation ROS: See HPI PE: BP 120/70 Pulse 60 Temp (Src) 97.7 (Left Tympanic) Resp 16 Wt 133 lb (60.3kg) Gen: AANDOX3, NAD, non-toxic appearing HEENT: PERRLA, EOMs intact b/l, nares without drainage, pharynx without erythema, exudate, lesions, or drainage. Uvula midline. Neck: No LAD, no thyromegaly, no meningismus. CV: RRR, no murmur Lungs: CTA b/l, no wheezing Skin: No rashes, lesions, or wounds on exposed skin. Abd: soft, + TTP diffusely but mostly in LLQ and flank area No edema ASSESSMENT/PLAN: 1. Left pelvic adnexal fluid collection - ICD9: 796.4, ICD10: R68.89 (primary diagnosis) - needs to follow up with [employer], faxed paperwork to [employer] [employer] office and appt scheduled, she will go back to the EMERGENCY DEPARTMENT if symptoms worsen 2. Pelvic pain - ICD9: [id number], ICD10: R10.2 - needs to follow up with [employer], faxed paperwork to [employer] office and appt scheduled, she will go back to the EMERGENCY DEPARTMENT if symptoms worsen Yon Vazquez DO Return if no improvement. Follow up with Yon Vazquez DO. Discussed risks, benefits, alternatives, and potential side effects of medications. Patient/Guardian expressed understanding and agreed with the plan. See patient instructions. Yon Vazquez DO [address] [place] [address] CNOV Observed: 07/05/2018 Status: COMPLETED Source: [facility] 10:40 AM [facility] REPOSITORY Office Visit (FAMPWS) NORMA HAWKINS ([id number]) 1970 F Date Time Provider Department 07/05/18 10:40 AM YON VAZQUEZ [facility]TommieWS During your visit today, we recorded the following information about you: Temperature Pulse Respiration Blood pressure 97.7 degrees 60/minute 16/minute 120/70 Weight 60.3 kg Yon Vazquez DO 07/06/2018 7:30 AM Signed CC: Norma Aguilar Josefina is a 47 year old female who presents to the office for EMERGENCY DEPARTMENT follow up HPI: Here for EMERGENCY DEPARTMENT follow up, experienced severe LLQ and RLQ abdominal pain that radiated to epigastric area, associated with nausea and inability for anything to touch her abdominal skin due to extreme nature of pain, this started 1-2 days ago, she was seen at [facility]. Had CT abd/pelvis with concerns for left pelvic ovarian vs. Tubal cyst at 4 cm size. She was given pain medications and discharged home for US pelvis today at the hospital. She had pelvic US completed this AM and is asking for results. Abdominal pain is manageable with nausea medications from home as well as the [place] which was given in the EMERGENCY DEPARTMENT She hasn't seen [employer] yet PAST MEDICAL HISTORY Diagnosis Date - Diverticulosis - S/P lumbar fusion L4/5 - Tobacco abuse disorder PAST SURGICAL HISTORY Procedure Laterality Date - EGD W/O OR W/BRUSH/WASH 02/14/16 EGD with mac - LAPAROSCOPIC CHOLEYCYSTECTOMY 11/26/2015 - LUMBAR SPINE FUSION COMBINED 2007 lumbar fusion L4-L5 - OVARIAN CYSTECTOMY 84 - REMOVAL OF TONSILS; AGE 12 OR OVER 83 - S BALLOON,UTERINE ABLATION [address] Sutton - TUBAL LIGATION, 89 Current Outpatient Prescriptions: HYDROcodone-acetaminophen (NORCO) 5-325 mg per tablet Take 1 tablet by mouth every 6 hours as needed. naproxen (NAPROSYN) 500 mg tablet Take 500 mg by mouth twice daily with meals. buPROPion XL (WELLBUTRIN XL) 150 mg 24 hr tablet Take 1 tablet by mouth once daily. albuterol HFA (VENTOLIN HFA) 90 mcg/actuation inhaler Inhale 2 Puffs as instructed every 4 hours as needed for Wheezing/Shortness of Breath. ondansetron (ZOFRAN, HYDROCHLORIDE,) 4 mg tablet Take 1 tablet by mouth once daily as needed (for nausea.). ibuprofen (ADVIL) 200 mg tablet Take 200 mg by mouth every 6 hours as needed. OLIVE OIL ORAL Take 4,000 mg by mouth once daily. coconut oil No current facility-administered medications for this visit. ALLERGIES Allergen Reactions - Codeine Hives - Fentanyl Other: See Comments Slow heart rate shallow resp. 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 Social History Main Topics Smoking status: Current Every Day Smoker Packs/day: 1.00 Years: 27.00 Types: Cigarettes Start date: 11/16/1988 Last attempt to quit: 06/11/2017 Smokeless tobacco: Never Used Comment: 1/2 to 1 pack per day Alcohol use: Yes Comment: Occasionally Drug use: No Sexual activity: Yes control/protection: Tubal Ligation Comment: Ablation ROS: See HPI PE: BP 120/70 Pulse 60 Temp (Src) 97.7 (Left Tympanic) Resp 16 Wt 133 lb (60.3kg) Gen: AANDOX3, NAD, non-toxic appearing HEENT: PERRLA, EOMs intact b/l, nares without drainage, pharynx without erythema, exudate, lesions, or drainage. Uvula midline. Neck: No LAD, no thyromegaly, no meningismus. CV: RRR, no murmur Lungs: CTA b/l, no wheezing Skin: No rashes, lesions, or wounds on exposed skin. Abd: soft, + TTP diffusely but mostly in LLQ and flank area No edema ASSESSMENT/PLAN: 1. Left pelvic adnexal fluid collection - ICD9: 796.4, ICD10: R68.89 (primary diagnosis) - needs to follow up with [employer], faxed paperwork to [employer] office and appt scheduled, she will go back to the EMERGENCY DEPARTMENT if symptoms worsen 2. Pelvic pain - ICD9: [id number], ICD10: R10.2 - needs to follow up with [employer], faxed paperwork to [employer] office and appt scheduled, she will go back to the EMERGENCY DEPARTMENT if symptoms worsen Yon Vazquez DO Return if no improvement. Follow up with Yon Vazquez DO. Discussed risks, benefits, alternatives, and potential side effects of medications. Patient/Guardian expressed understanding and agreed with the plan. See patient instructions. Yon Vazquez DO [address] [place] [address] Referring Provider: YON VAZQUEZ [[id number]] Allergies As of Date: 07/05/2018 Noted Allergy Reaction CODEINE 12/23/2011 4 - Hives FENTANYL 12/23/2011 14 - Other: See Comments Comments: Slow heart rate shallow resp. Date Reviewed: 07/05/2018 Reviewed by: Arian Pickett LPN - Fully Assessed Reason for Visit: Follow Up [171] Cmt: 6 months ER F/U [41] Cmt: Jose Antonio Pomerene Abdominal pain Reason For Visit History Recorded Primary Visit Diagnosis:Left pelvic adnexal fluid collection [R68.89] Other Visit Diagnosis:Pelvic pain [R10.2] Prescriptions as of 07/05/2018 Sig: HYDROCODONE 5 MG-ACETAMINOPHE* Take 1 tablet by mouth every * NAPROXEN 500 MG TABLET Take 500 mg by mouth twice da* BUPROPION XL 150 MG TAB Take 1 tablet by mouth once d* ALBUTEROL SULFATE HFA 90 MCG/* Inhale 2 Puffs as instructed * ONDANSETRON HCL 4 MG TABLET Take 1 tablet by mouth once d* IBUPROFEN 200 MG TABLET Take 200 mg by mouth every 6 * OLIVE OIL ORAL Take 4,000 mg by mouth once d* Medication notes this encounter OLIVE OIL ORAL >> Arian Pickett LPN 07/05/2018 10:45 AM >> ARIAN PICKETT LPN ThuJul 05, 2018 10:45 AM Finished Problem List As Of Date 07/05/2018 Noted Resolved PMDD (premenstrual dysphoric disorder) [F32.81] INVALID FOR*05/25/2013 Breast hypertrophy in female [N62] INVALID FOR* S/P endometrial ablation [Z98.890] INVALID FOR* Microscopic hematuria [R31.29] INVALID FOR* Letter Text Yon Vazquez DO [address] [place], [place] [address] 07/05/2018 TO WHOM IT MAY CONCERN: This is to confirm that Norma Hawkins had an appointment and was seen at the [facility] in the Department of Family Medicine by Leilani Julian 07/05/2018 and may return to work on 07/08/18. Sincerely yours, Yon Vazquez DO Encounter Status:Closed by YON VAZQUEZ DO on 07/06/18 US PELVIC Observed: 07/05/2018 Status: F Source: [facility] 7:[address] [address] Patient: NORMA HAWKINS Phone#: : 1970 Age: 47 Gender: F Pt. Type: Out Account: [id number] Location: 052 Ordering: OLIVER GARCIA Exam Date: 07/05/2018/6:32 Family Phys: DR. YON VAZQUEZ D.O.Charge Code: [id number] Physician: Kemper Order #: [id number] DLP Dose#: PROCEDURE: PELVIC ULTRASOUND, TRANSABDOMINAL ENDOVAGINAL COMPARISON: [facility], CT, ABDOMEN/PELVIS W CON, 07/04/2018, 14:02. INDICATIONS: Abdominal Pain TECHNIQUE: Pelvic ultrasound using transabdominal and endovaginal technique. FINDINGS: UTERUS: The uterus is retroverted. Size is 6.0 x 2.0 x 3.9 cm with unremarkable appearance. Endometrial thickness is 6 mm. ADNEXAE: Numerous and large left-sided vessels, correlate for symptoms of pelvic congestion syndrome. The right ovary measures 3.6 x 2.4 x 1.5 cm and contains a follicle. In the left adnexa there is a simple fluid collection measuring 3.5 x 1.6 x 3.9 cm; there is no thickened wall, cogwheel appearance, internal vascularity or nodularity. No discrete left ovarian tissue is identified separate from this fluid collection. CUL-DE-SAC: Small amount of free fluid in the pelvis. OTHER: Numerous fluid-filled small bowel loops of small bowel throughout the pelvis CONCLUSION: 1. Numerous mobile fluid-filled loops of small bowel, correlate for enteritis. 2. Left adnexal simple fluid collection may represent an ovarian cyst versus paratubal cyst. Recommend repeat ultrasound in 6 weeks to evaluate for resolution. Dictated by: Sue Murillo MD on 07/05/2018 at 9:14 Approved by: Sue Murillo MD on 07/05/2018 at 9:32 US PELVIC ENDO Observed: 07/05/2018 Status: F Source: [facility] 7:08 AM [place] [address] Patient: NORMA HAWKINS Phone#: : 1970 Age: 47 Gender: F Pt. Type: Out Account: [id number] Location: 052 Ordering: OLIVER GARCIA Exam Date: 07/05/2018/6:32 Family Phys: DR. YON VAZQUEZ D.O.Charge Code: [id number] Physician: Kemper Order #: [id number] DLP Dose#: PROCEDURE: PELVIC ULTRASOUND, TRANSABDOMINAL ENDOVAGINAL COMPARISON: [facility], CT, ABDOMEN/PELVIS W CON, 07/04/2018, 14:02. INDICATIONS: Abdominal Pain TECHNIQUE: Pelvic ultrasound using transabdominal and endovaginal technique. FINDINGS: UTERUS: The uterus is retroverted. Size is 6.0 x 2.0 x 3.9 cm with unremarkable appearance. Endometrial thickness is 6 mm. ADNEXAE: Numerous and large left-sided vessels, correlate for symptoms of pelvic congestion syndrome. The right ovary measures 3.6 x 2.4 x 1.5 cm and contains a follicle. In the left adnexa there is a simple fluid collection measuring 3.5 x 1.6 x 3.9 cm; there is no thickened wall, cogwheel appearance, internal vascularity or nodularity. No discrete left ovarian tissue is identified separate from this fluid collection. CUL-DE-SAC: Small amount of free fluid in the pelvis. OTHER: Numerous fluid-filled small bowel loops of small bowel throughout the pelvis CONCLUSION: 1. Numerous mobile fluid-filled loops of small bowel, correlate for enteritis. 2. Left adnexal simple fluid collection may represent an ovarian cyst versus paratubal cyst. Recommend repeat ultrasound in 6 weeks to evaluate for resolution. Dictated by: Sue Murillo MD on 07/05/2018 at 9:14 Approved by: Sue Murillo MD on 07/05/2018 at 9:32 URINE Collected: 07/04/2018 Status: F Source: [facility] 2:[address] [facility] REPOS[facility] TYPE CODE TESTS RESULT OUT OF REFERENCE UNITS RANGE LAB NEGATIVE UR(LOINC) UR NEGATIVE LAB INTERNAL QC(LOINC) INTERNAL QC PASS LAB EXTERNAL QC DONE?(LOINC) EXTERNAL QC YES DONE? Performed By: #### [id number] #### [facility],[address] [place] [address] URINALYSIS Collected: 07/04/2018 Status: F Source: [facility] 2:[address] [facility] TYPE CODE TESTS RESULT OUT OF REFERENCE UNITS RANGE LAB URINALYSIS (LOINC) URINALYSIS Result Comment: URINALYSIS LAB Specimen Type(LOINC) Specimen Type UNSPECIFIED LAB Color(LOINC) NORMAL: YELLOW Color p.yel LAB Clarity(LOINC) NORMAL: CLEAR Clarity very cloudy LAB ph(LOINC) NORMAL: 5.0-8.0 ph 8 LAB Protein(LOINC) NORMAL: NEGATIVE Protein NEG LAB Glucose(LOINC) NORMAL: NORMAL Glucose NORM LAB Ketone(LOINC) NORMAL: NEGATIVE Ketone NEG LAB Bilirubin(LOINC) NORMAL: NEGATIVE NEG Bilirubin LAB Blood(LOINC) NORMAL: NEGATIVE Blood 10 Abnormal LAB Urobilinog(LOINC NORMAL: ) NORMAL 1 Abnormal Urobilinog LAB Sp NORMAL: Flinton(LOINC) 1.010-1.030 Sp 1.010 Flinton LAB Nitrite(LOINC) NORMAL: NEGATIVE Nitrite NEG LAB Leukocytes(LOINC NORMAL: ) NEGATIVE NEG Leukocytes LAB Microscopic(LOIN C) SEE Microscopic BELOW Result Comment: MICROSCOPIC LAB Wbc(LOINC) 0-5/hpf Wbc NONE LAB Rbc(LOINC) 0-3/hpf Rbc 0-5 LAB Casts(LOINC) Casts NONE LAB Crystals(LOINC) Crystals NONE LAB Amorphous(LOINC) Amorphous NONE LAB Bacteria(LOINC) Bacteria NONE LAB Epi Cells(LOINC) Epi Cells FEW LAB Mucous(LOINC) Mucous NONE LAB Yeast(LOINC) Yeast NONE Performed By: #### [id number] #### [facility],[address] [place] [address] CT ABDOMEN/PELVIS W Observed: 07/04/2018 Status: F Source: [facility] 2:20 PM [place] [address] Patient: NORMA HAWKINS Phone#: : 1970 Age: 47 Gender: F Pt. Type: ER Account: [id number] Location: 2 Ordering: OLIVER GARCIA Exam Date: 07/04/2018/14:02 Family Phys: DR. YON VAZQUEZ D.O.Charge Code: [id number] Physician: Kemper Order #: [id number] DLP Dose#: PROCEDURE: CT ABDOMEN/PELVIS WITH CONTRAST COMPARISON: None. INDICATIONS: Pain TECHNIQUE: After obtaining the patient's consent, CT images were created with non-ionic intravenous contrast material. All CT scans at this facility use dose modulation, iterative reconstruction, and/or weight based dosing when appropriate to reduce radiation dose to as low as reasonably achievable. IV CONTRAST: Omnipaque 350,80ml TOTAL DOSE: 10.8 CTDIvol(mGy) FINDINGS: LIVER: There is mild diffuse intrahepatic biliary ductal dilatation. There is a low attenuation lesion in the left lobe measuring soft tissue attenuation and 2.1 x 1.5 x 2.1 cm. BILIARY: The common bile duct measures 1.1 cm. This can be seen with reservoir effect following cholecystectomy. PANCREAS: Normal. No lesion, fluid collection, ductal dilatation, or atrophy. SPLEEN: Normal. No enlargement or focal lesion. KIDNEYS: Kidneys enhance and excrete contrast symmetrically. No hydronephrosis. Low attenuation lesion the left kidney, too small to characterize. ADRENALS: Normal. No mass or enlargement. AORTA/VASCULAR: No aortic aneurysm. Atherosclerotic calcifications of the aorta and branch vessels. RETROPERITONEUM: Normal. No mass or adenopathy. BOWEL/MESENTERY: No bowel obstruction or dilatation. The appendix contains air. There is a moderate degree of stool throughout the colon. ABDOMINAL WALL: Normal. No mass or hernia. Continued Report - Page 2 of 2 Patient: NORMA HAWKINS Phone#: : 1970 Age: 47 Gender: F Pt. Type: ER Account: [id number] Location: 052 Ordering: OLIVER GARCIA Exam Date: 07/04/2018/14:02 Family Phys: DR. YON VAZQUEZ D.O.Charge Code: [id number] Physician: Kemper Order #: [id number] DLP Dose#: URINARY BLADDER: Normal. No visible focal wall thickening, lesion, or calculus. PELVIC NODES: Normal. No adenopathy. PELVIC ORGANS: The uterus is present. There is a fluid filled elongated structure in the left adnexa measuring likely representing a fluid-filled loop of small bowel. Possible corpus luteal cyst seen on the right. There are numerous enlarged and enhancing left pelvic vessels. The left gonadal vein is enlarged and enhances. BONES: Posterior spinal fusion hardware with pedicle screws and rods at L5-S1. There is discectomy with disc space at L5-S1. LUNG BASES: Normal. No visible pulmonary or pleural disease. OTHER: Negative. CONCLUSION: 1. Intrahepatic and extrahepatic biliary ductal dilatation, most pronounced in the left lobe. Recommend correlation with laboratory values and Liver MRI without and with contrast. This report was communicated by telephone to Dr. Garcia at the dictation time shown below. 2. A large left gonadal vein and numerous left sided pelvic vessels, correlate for symptoms of pelvic congestion syndrome. Dictated by: Sue Murillo MD on 07/04/2018 at 14:53 Approved by: Sue Murillo MD on 07/04/2018 at 14:53 CBC Collected: 07/04/2018 Status: F Source: [facility] 1:[address] [facility] REPOS[facility]ORY TYPE CODE TESTS RESULT OUT OF RANGE REFERENCE UNITS LAB CBC(LOINC) CBC Result Comment: CBC-COMPLETE BLOOD COUNT LAB WBC(LOINC) 4.5 - 10.8 x 10EE3/UL WBC 10.3 LAB RBC(LOINC) 4.10 - x 10EE6/UL 5.30 RBC 4.78 LAB HEMOGLOBIN(LOINC) 12.0 - g/dl 16.0 HEMOGLOBIN 15.2 LAB HEMATOCRIT(LOINC) 34.0 - % 46.0 HEMATOCRIT 43.5 LAB MCV(LOINC) 80 - 99 fl MCV 91 LAB MCH(LOINC) 27 - 33 pg MCH 32 LAB MCHC(LOINC) 32 - 36 X10 3 MCHC 35 LAB RDW/CV(LOINC) 12.0 - % 15.6 RDW/CV 13.0 LAB PLATELET(LOINC) 150 - 450 x10EE3/UL PLATELET 313 LAB MPV(LOINC) 6.6 - 10.5 fl MPV 7.8 Result Comment: AUTOMATED DIFFERENTIAL LAB NEUT %(LOINC) 46.0 - 76.0 % NEUT % 67.7 LAB LYMPH %(LOINC) 20.0 - 45.0 % LYMPH % 22.4 LAB MONOS %(LOINC) 0.0 - 10.0 % MONOS % 8.0 LAB EO %(LOINC) 0.0 - 7.0 % EO % 1.1 LAB BASO %(LOINC) 0.0 - 2.0 % BASO % 0.8 LAB Lymph #(LOINC) 0.80 - 2.80 x10EE3/U L Lymph # 2.30 LAB Neut #(LOINC) 1.50 - 7.10 x10EE3/U L Neut # 7.00 LAB Casey #(LOINC) 0.20 - 1.00 x10EE3/U L Casey # 0.80 LAB EO #(LOINC) 0.00 - 0.50 x10EE3/U L EO # 0.10 LAB Baso #(LOINC) 0.00 - 0.10 x10EE3/U L Baso # 0.10 LAB MANUAL DIFF([facility]) MANUAL DIFF N/A LAB MORPHOLOGY([facility] ) MORPHOLOGY N/A Result Comment: {CD] Performed By: #### [id number] #### [place] [address] LIPASE Collected: 07/04/2018 Status: F Source: [facility] 1:[address] [facility] RE[facility] TYPE CODE TESTS RESULT OUT OF REFERENCE UNITS RANGE LAB LIPASE(LOIN 18.0 - 51.0 U/L C) Low LIPASE 10.0 Performed By: #### [id number] #### [place] [address] AMYLASE Collected: 07/04/2018 Status: F Source: [facility] 1:[address] [facility] REPOS[facility]ORY TYPE CODE TESTS RESULT OUT OF REFERENCE UNITS RANGE LAB AMYLASE(MARY ELLEN 29 - 103 U/L NC) AMYLASE 52 Performed By: #### [id number] #### [place] [address] CMP WITH EGFR Collected: 07/04/2018 Status: F Source: [facility] 1:[address] [facility] RE[facility] TYPE CODE TESTS RESULT OUT OF RANGE REFERENCE UNITS LAB CMP with eGFR(LOINC) CMP with eGFR Result Comment: COMPREHENSIVE METABOLIC PANEL LAB SODIUM(LOINC) 136 - 145 mmol/l SODIUM 138 LAB POTASSIUM(LOINC) 3.5 - 5.1 mmol/L POTASSIUM 3.7 LAB CHLORIDE(LOINC) 98 - 107 mmol/L CHLORIDE High 108 LAB CO2(LOINC) 21.0 - mmol/L 31.0 CO2 21.2 LAB GLUCOSE(LOINC) 74 - 106 mg/dl GLUCOSE 99 LAB BUN(LOINC) 6 - 20 mg/dl BUN 13 LAB CREATININE(LOINC) 0.6 - 1.2 mg/dl CREATININE 0.7 LAB AST/SGOT(LOINC) 13 - 39 U/L AST/SGOT Low 12 LAB ALK PHOS(LOINC) 38 - 126 U/L ALK PHOS 60 LAB CALCIUM(LOINC) 8.6 - mg/dl 10.2 CALCIUM 9.7 LAB TOTAL 6.4 - 8.3 g/dl PROTEIN(LOINC) TOTAL PROTEIN 7.7 LAB ALBUMIN(LOINC) 3.4 - 4.8 g/dL ALBUMIN 4.6 LAB GLOBULIN(LOINC) 1.5 - 3.8 G/DL GLOBULIN 3.1 LAB A/G RATIO(LOINC) 0.9 - 1.6 A/G RATIO 1.5 LAB TOTAL BILI(LOINC) 0.0 - 1.5 mg/dl TOTAL BILI 0.6 LAB B/C RATIO(LOINC) 0 - 30 ratio B/C RATIO 19 LAB ALT/SGPT(LOINC) 8 - 35 U/L ALT/SGPT 8 LAB ANION GAP(LOINC) 10 - 20 mmol/L ANION GAP 13 LAB AGE(LOINC) years AGE 47 LAB eGFR(LOINC) 60 - 999 ML/MINUTE eGFR >60 LAB eGFR(AA)(LOINC) 60 - 999 ML/MINUTE eGFR(AA) >60 Result Comment: ACCORDING TO THE NATIONAL KIDNEY DISEASE EDUCATION PROGRAM(NKDE), A NORMAL eGFR IS A VALUE GREATER THAN OR EQUAL TO 60 ML/MIN/1.73 SQ METERS. CHRONIC KIDNEY DISEASE: <60mL/MIN/1.73 SQ METERS KIDNEY FAILURE: <15mL/MIN/1.73 SQ METERS THIS TEST SHOULD ONLY BE USED FOR PATIENTS 18 YEARS OF AGE AND OLDER. Performed By: #### [id number] #### [address] [address] C-REACTIVE PROTEIN Collected: 07/04/2018 Status: F Source: [facility] 1:[address] [facility] RE[facility]ORY TYPE CODE TESTS RESULT OUT OF RANGE REFERENCE UNITS LAB CRP(LOINC) 0.00 - 1.00 mg/dl CRP <0.10 Performed By: #### [id number] #### [address] [place] [address] STRESS REPORT Observed: 05/07/2018 Status: F Source: [facility] 2:16 PM [facility] REPOSITORY [facility] Cardiovascular Services Diya WIGGINS [place] [id number] MR#: [id number] Acct: [id number] Name: NORMA HAWKINS Rep #: [id number] : 1970 47 From: Akhil Roberts MD Primary Care: Yon Hernandez DO Status: REG CLI Ordering Dr: Sex: F C Stress Test Report Exercise myocardial perfusion stress test. 47-year-old lady with a history of chest pain. Stress protocol: Resting EKG demonstrates sinus bradycardia with a rate of 55 bpm normal intervals and noted resting blood pressure is 122/72 mmHg. The patient exercised according to regular Arnol protocol for total duration of 10 minutes and 30 seconds completing 1 minute and 30 seconds of stage IV of the Arnol protocol. The maximum heart rate was 166 bpm which was 95% of maximum predicted heart rate the maximum workload was 12.5 metabolic equivalents. At rest there were no ST or T-wave changes noted suggest ischemia at peak exercise no ST or T-wave changes were noted suggest ischemia. No clinical angina was noted. The resting blood pressure is 122/72 with a peak blood pressure 160/70. Myocardial perfusion protocol. 11.1 mCi of technetium 99m sestamibi was injected at rest. The patient exercised according to Arnol protocol for 10 minutes and 30 seconds attaining 95% of maximum predicted heart rate the maximum workload was 12.5 metabolic equivalents. At peak exercise 32.9 mCi of technetium 99m sestamibi was injected stress images were obtained stress and rest images were reconstructed and compared in the short axis vertical long and horizontal long axis. Gated images were also obtained pre- Perfusion SPECT analysis: Review of the stress images demonstrate normal uptake of tracer noted in all areas of the myocardium. The resting images similarly demonstrate normal uptake of tracer noted in all areas of the myocardium. No reversibility is noted suggest ischemia no previous infarct is noted. Gated SPECT analysis: The gated ejection fraction is noted to be 63%. Conclusion: Normal exercise myocardial perfusion stress test with no evidence of ischemia at a high workload. Preserved ejection fraction. Excellent functional capacity. 05/07/18 1416 <Electronically signed by Akhil Roberts MD> Date Akhil Roberts MD CC: Akhil Roberts MD; Yon Hernandez DO Date Dictated: 05/07/18 141 Date Transcribed: 05/07/181412 Entertainment Reporter: [place] Signed 12 LEAD ELECTROCARDIOGRAM Observed: 05/06/2018 Status: F Source: [facility] 1:15 PM [facility] REPOSITORY [facility] Cardiovascular Services [address] [place] [address] 12 Lead EKG 05/03/18 0734 MR#: [id number] Acct: [id number] Name: NORMA HAWKINS Rep #: [id number] : 1970 47 From: Owen Ling MD Attending Dr: Status: DEP ER Ordering Dr: Owen Arauz MD Date: 05/03/18 Location: ED Sex: F C Admitted: Test Reason : CP Blood Pressure : / mmHG Vent. Rate : 067 BPM Atrial Rate : 067 BPM P-R Int : 136 ms QRS Dur : 080 ms QT Int : 380 ms P-R-T Axes : 075 034 048 degrees QTc Int : 401 ms Normal sinus rhythm Normal ECG Confirmed by SUSHIL GAY, OWEN ([id number]), web content editor TERESITA MCGARRY ([id number]) on 05/06/2018 1:14:48 PM Referred By: RAPHAEL Confirmed By:OWEN LING MD 05/06/18 1314 Date Owen Ling MD CC: Yon Hernandez DO; Owen Arauz MD Signed PROGRESS Observed: 05/05/2018 Status: COMPLETED Source: [facility] 4:46 PM [facility] REPOSITORY HNO ID: [id number] Author: Susi Carlos) Aissatou Service: (none) Author Type: Physician Type: Progress Notes Filed: 05/05/2018 7:50 PM Note Text: Chief Complaint Patient presents with: ER F/U: Seen at [facility] ER 7/9/18 for chest pain AND elevated blood pressure HPI Coreena A Josefina is a 47 year old female who presents here today for ER Follow Up.. Sohan laguna seen at [facility] ED on 05/03 for complaint of chest pain for the 11 hours prior to evaluation. Located in left shoulder and extending to the left side of her chest, described as aching. Workup significant for TTP over left chest wall and left shoulder. Blood work normal including troponin. CXR negative. EKG reportedly negative, though no EKG in report today. Discharged home without medication changes with recommendation to follow up with cardiology. Since discharge, patient called to set up appointment with Dr. Roberts and they scheduled her stress test to be performed on 05/07. States that she is still having the pain in her arm and neck intermittently. Yesterday had aching chest pain while studying which lasted about 15 minutes and resolved on its own. Associated with nausea. Denies diaphoresis, lightheadedness, SOB, worsening with exertion. Not taking anything OTC for pain. Wells' Criteria for Pulmonary Embolism from [email or web address] on 05/05/2018 All calculations should be rechecked by clinician prior to use RESULT SUMMARY: 0.0 points Low risk group: 1.3% chance of PE in an ED population. Another study assigned scores ? 4 as ?PE Unlikely? and had a 3% incidence of PE. INPUTS: Clinical signs and symptoms of DVT ?> 0 = No PE is #1 diagnosis OR equally likely ?> 0 = No Heart rate > 100 ?> 0 = No Immobilization at least 3 days OR surgery in the previous 4 weeks ?> 0 = No Previous, objectively diagnosed PE or DVT ?> 0 = No Hemoptysis ?> 0 = No Malignancy w/ treatment within 6 months or palliative ?> 0 = No Past medical history, appointments, medications, allergies reviewed. Previous Medical History PAST MEDICAL HISTORY Diagnosis Date - Diverticulosis - S/P lumbar fusion L4/5 - Tobacco abuse disorder Previous Surgical History PAST SURGICAL HISTORY Procedure Laterality Date - EGD W/O OR W/BRUSH/WASH 02/14/16 EGD with mac - LAPAROSCOPIC CHOLEYCYSTECTOMY 11/26/2015 - LUMBAR SPINE FUSION COMBINED 2007 lumbar fusion L4-L5 - OVARIAN CYSTECTOMY 84 - REMOVAL OF TONSILS; AGE 12 OR OVER 83 - S BALLOON,UTERINE ABLATION [address] Sutton - TUBAL LIGATION, 89 Family History FAMILY HISTORY Problem Relation Age of Onset - Hypertension Father - Lung Cancer [OTHER] Father mets to brain - Heart Mother - Hypertension Mother - Kidney Disease Mother - Cervical Cancer Paternal Grandmother and ovarian - Breast Cancer Maternal Aunt - Kidney Disease Daughter hydronephrosis - Colon Cancer Other P-cousin - Cancer Paternal Uncle throat - Reilly's syndrome [OTHER] Other Patient Allergies ALLERGIES Allergen Reactions - Codeine Hives - Fentanyl Other: See Comments Slow heart rate shallow resp. Current Medications Current Outpatient Prescriptions on File Prior to Visit: albuterol HFA (VENTOLIN HFA) 90 mcg/actuation inhaler Inhale 2 Puffs as instructed every 4 hours as needed for Wheezing/Shortness of Breath. buPROPion XL (WELLBUTRIN XL) 300 mg 24 hr tablet Take 1 tablet by mouth once daily. ibuprofen (ADVIL) 200 mg tablet Take 200 mg by mouth every 6 hours as needed. OLIVE OIL ORAL Take 4,000 mg by mouth once daily. coconut oil ondansetron (ZOFRAN, HYDROCHLORIDE,) 4 mg tablet Take 1 tablet by mouth once daily as needed (for nausea.). (Patient not taking: Reported on 05/05/2018 ) No current facility-administered medications on file prior to visit. 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 General Appearance: Well appearing, alert, in no acute distress, well-hydrated, well nourished.. Skin: Skin color, texture, turgor normal, no suspicious rashes or lesions. Lungs: Lungs clear to auscultation. No wheezing, rhonchi, rales. Heart: RRR without murmur, gallop, or rubs. No ectopy. Chest wall non tender to palpation. Health Maintenance List DTAP,TDAP,TD(1 - Tdap) due on 1989 ONE PNEUMOVAX PRIOR TO AGE 65 due on 1989 LIPID SCREEN due on 10/08/2016 INFLUENZA(1) due on 06/26/2018 MAMMOGRAM due on 08/11/2018 COLORECTAL CANCER SCREENING,SEE MODIFIER due on 03/03/2020 DIABETES SCREEN due on 10/30/2020 PAP EVERY 5 YEARS due on 11/27/2022 HPV EVERY 5 YEARS due on 11/27/2022 ASSESSMENT/PLAN: 1. Other chest pain - ICD9: 786.59, ICD10: R07.89 Atypical chest pain, symptoms are not consistent with cardiac ischemia due to nonexertional nature of symptom possible etiology include GERD, Costochondritis/chest wall pain, musculoskeletal, anxiety, and Pleurisy Patient to follow up with stress test in 2 days. Will follow up results. Advised starting 81 mg ASA daily and OTC analgesics for pain. Susi Reyez MD CNOV Observed: 05/05/2018 Status: COMPLETED Source: [facility] 4:40 PM [facility] REPOSITORY Office Visit (FAMPWS) NORMA HAWKINS ([id number]) 1970 F Date Time Provider Department 05/05/18 4:40 PM SUSI REYEZ) FAMPWS During your visit today, we recorded the following information about you: Temperature Pulse Respiration Blood pressure 98.1 degrees 64/minute 16/minute 132/80 Weight 59.9 kg Susi Reyez MD 05/05/2018 7:50 PM Signed Chief Complaint Patient presents with: ER F/U: Seen at [facility] ER 05/03/18 for chest pain AND elevated blood pressure HPI Azaliahanna Hawkins is a 47 year old female who presents here today for ER Follow Up.. Sohan laguna seen at [facility] ED on 05/03 for complaint of chest pain for the 11 hours prior to evaluation. Located in left shoulder and extending to the left side of her chest, described as aching. Workup significant for TTP over left chest wall and left shoulder. Blood work normal including troponin. CXR negative. EKG reportedly negative, though no EKG in report today. Discharged home without medication changes with recommendation to follow up with cardiology. Since discharge, patient called to set up appointment with Dr. Roberts and they scheduled her stress test to be performed on 05/07. States that she is still having the pain in her arm and neck intermittently. Yesterday had aching chest pain while studying which lasted about 15 minutes and resolved on its own. Associated with nausea. Denies diaphoresis, lightheadedness, SOB, worsening with exertion. Not taking anything OTC for pain. Wells' Criteria for Pulmonary Embolism from [email or web address] on 05/05/2018 All calculations should be rechecked by clinician prior to use RESULT SUMMARY: 0.0 points Low risk group: 1.3% chance of PE in an ED population. Another study assigned scores ? 4 as ?PE Unlikely? and had a 3% incidence of PE. INPUTS: Clinical signs and symptoms of DVT ?> 0 = No PE is #1 diagnosis OR equally likely ?> 0 = No Heart rate > 100 ?> 0 = No Immobilization at least 3 days OR surgery in the previous 4 weeks ?> 0 = No Previous, objectively diagnosed PE or DVT ?> 0 = No Hemoptysis ?> 0 = No Malignancy w/ treatment within 6 months or palliative ?> 0 = No Past medical history, appointments, medications, allergies reviewed. Previous Medical History PAST MEDICAL HISTORY Diagnosis Date - Diverticulosis - S/P lumbar fusion L4/5 - Tobacco abuse disorder Previous Surgical History PAST SURGICAL HISTORY Procedure Laterality Date - EGD W/O OR W/BRUSH/WASH 02/14/16 EGD with mac - LAPAROSCOPIC CHOLEYCYSTECTOMY 11/26/2015 - LUMBAR SPINE FUSION COMBINED 2007 lumbar fusion L4-L5 - OVARIAN CYSTECTOMY 84 - REMOVAL OF TONSILS; AGE 12 OR OVER 83 - S BALLOON,UTERINE ABLATION [id number] Sutotn - TUBAL LIGATION, 89 Family History FAMILY HISTORY Problem Relation Age of Onset - Hypertension Father - Lung Cancer [OTHER] Father mets to brain - Heart Mother - Hypertension Mother - Kidney Disease Mother - Cervical Cancer Paternal Grandmother and ovarian - Breast Cancer Maternal Aunt - Kidney Disease Daughter hydronephrosis - Colon Cancer Other P-cousin - Cancer Paternal Uncle throat - Reilly's syndrome [OTHER] Other Patient Allergies ALLERGIES Allergen Reactions - Codeine Hives - Fentanyl Other: See Comments Slow heart rate shallow resp. Current Medications Current Outpatient Prescriptions on File Prior to Visit: albuterol HFA (VENTOLIN HFA) 90 mcg/actuation inhaler Inhale 2 Puffs as instructed every 4 hours as needed for Wheezing/Shortness of Breath. buPROPion XL (WELLBUTRIN XL) 300 mg 24 hr tablet Take 1 tablet by mouth once daily. ibuprofen (ADVIL) 200 mg tablet Take 200 mg by mouth every 6 hours as needed. OLIVE OIL ORAL Take 4,000 mg by mouth once daily. coconut oil ondansetron (ZOFRAN, HYDROCHLORIDE,) 4 mg tablet Take 1 tablet by mouth once daily as needed (for nausea.). (Patient not taking: Reported on 05/05/2018 ) No current facility-administered medications on file prior to visit. 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 General Appearance: Well appearing, alert, in no acute distress, well-hydrated, well nourished.. Skin: Skin color, texture, turgor normal, no suspicious rashes or lesions. Lungs: Lungs clear to auscultation. No wheezing, rhonchi, rales. Heart: RRR without murmur, gallop, or rubs. No ectopy. Chest wall non tender to palpation. Health Maintenance List DTAP,TDAP,TD(1 - Tdap) due on 1989 ONE PNEUMOVAX PRIOR TO AGE 65 due on 1989 LIPID SCREEN due on 10/08/2016 INFLUENZA(1) due on 06/26/2018 MAMMOGRAM due on 08/11/2018 COLORECTAL CANCER SCREENING,SEE MODIFIER due on 03/03/2020 DIABETES SCREEN due on 10/30/2020 PAP EVERY 5 YEARS due on 11/27/2022 HPV EVERY 5 YEARS due on 11/27/2022 ASSESSMENT/PLAN: 1. Other chest pain - ICD9: 786.59, ICD10: R07.89 Atypical chest pain, symptoms are not consistent with cardiac ischemia due to nonexertional nature of symptom possible etiology include GERD, Costochondritis/chest wall pain, musculoskeletal, anxiety, and Pleurisy Patient to follow up with stress test in 2 days. Will follow up results. Advised starting 81 mg ASA daily and OTC analgesics for pain. Susi Reyez MD Referring Provider: SELF [200] Allergies As of Date: 05/05/2018 Noted Allergy Reaction CODEINE 12/23/2011 4 - Hives FENTANYL 12/23/2011 14 - Other: See Comments Comments: Slow heart rate shallow resp. Date Reviewed: 05/05/2018 Reviewed by: Zeenat Cerda LPN - Fully Assessed Reason for Visit: ER F/U [41] Cmt: Seen at [facility] ER 05/03/18 for chest pain AND elevated blood pressure Primary Visit Diagnosis:Other chest pain [R07.89] Prescriptions as of 05/05/2018 Sig: ALBUTEROL SULFATE HFA 90 MCG/* Inhale 2 Puffs as instructed * BUPROPION XL 300 MG 24 HR TAB Take 1 tablet by mouth once d* IBUPROFEN 200 MG TABLET Take 200 mg by mouth every 6 * OLIVE OIL ORAL Take 4,000 mg by mouth once d* ONDANSETRON HCL 4 MG TABLET Take 1 tablet by mouth once d* Patient not taking: Reported on 05/05/2018 Problem List As Of Date 05/05/2018 Noted Resolved PMDD (premenstrual dysphoric disorder) [F32.81] INVALID FOR*05/25/2013 Breast hypertrophy in female [N62] INVALID FOR* S/P endometrial ablation [Z98.890] INVALID FOR* Microscopic hematuria [R31.29] INVALID FOR* Disposition: Return if symptoms worsen or fail to improve. Follow-up and Disposition History Recorded Encounter Status:Closed by SUSI REYEZ MD on 05/05/18 EMERGENCY DEPARTMENT Observed: 05/03/2018 Status: F Source: [facility] SUMMARY 8:51 AM [facility] REPOSITORY [facility] Medical Records Department [address] [place] [address] Emergency Department Summary 05/03/18 0822 MR#: [id number] Acct: [id number] Name: NORMA HAWKINS Rep #: [id number] : 1970 47 From: Owen Arauz MD PCP: Yon Hernandez DO Status: REG ER - ER Visit Summary Date of Service: 05/03/18 Chief Complaint: Chest pain History of Present Illness: The patient is a 47 F presents with chest pain for the past 11 hours. It is mostly in her left shoulder and extending into the left side of the chest. It is an ache. It is not pleuritic. She has no PE risk factors. PERC negative. She has no shortness of breath or cough. She is a smoker and has a family history of cardiac disease. Patient has no medical problems. Physical Examination: Not appear in acute distress. Moist mucous membranes, no obvious facial deformity No C-spine tenderness supple neck. Regular rate and rhythm without any obvious murmurs there is left-sided chest wall and left shoulder tenderness to palpation which is quite reproducible and mechanical. Clear lungs bilaterally speaking in full sentences without any obvious respiratory distress Abdomen soft and nontender no guarding or rebound Moves all extremities without any difficulty or pain. Skin does not show any obvious rashes or lesions, no trauma. Alert oriented 3 with no gross focal deficit Emergency Department Course and Treatment: Patient has a PARRIS score of 0. HAART score of 2. She is low risk for adverse cardiac events in the next 30 days. I will follow her up with cardiology. If her symptoms worsen she needs to return. At this time she is low risk, has reproducible pain without any PE risk factors she is quite trustworthy and if anything worsens or changes she will return. Disposition: Discharged in stable condition Impression: Chest pain Chest wall pain This note was generated with [employer], [employer] software. It may contain incorrect words, spelling, and punctuation that were not noted in review of the chart prior to signing ED Disposition - Plan for ED Patient: Chief Complaint: Chest Pain Referrals: Yon Vazquez DO [Primary Care Provider] - What to do if you have Problems For any increased pain, shortness of breath, bleeding, nausea or vomiting, chest pain, or any unexpected problems, contact your Primary Care Provider. Call [facility] ([phone]) or report to the closest Emergency Room. Call 911 if necessary. 05/03/18 0851 <Electronically signed by Owen Arauz MD> Date Owen Arauz MD Cosigner Signature (If Indicated): Date CC: Yon Hernandez DO EMERGENCY DEPARTMENT Observed: 05/03/2018 Status: F Source: [place] SUMMARY 8:51 AM [facility] REPOSITORY [facility] Medical Records Department [address] [place] [address] Emergency Department Summary 05/03/18 0851 MR#: [id number] Acct: [id number] Name: NORMA HAWKINS Rep #: [id number] : 1970 47 From: Owen Arauz MD PCP: Yon Hernandez DO Status: REG ER - ER Visit Summary Date of Service: 05/03/18 Chief Complaint: [] History of Present Illness: The patient is a 47 F [] Physical Examination: [] Test Results: [] Emergency Department Course and Treatment: [] Treatment Plan: [] Disposition: [] Impression: [] This note was generated with [employer] dictation software. It may contain incorrect words, spelling, and punctuation that were not noted in review of the chart prior to signing ED Disposition - Plan for ED Patient: Disposition: Home or Assisted Living Chief Complaint: Chest Pain Instructions: ED Chest Pain Atypical Unkn Cause Prescriptions: Naproxen [Naprosyn] 500 mg PO BID PRN #20 tab Referrals: Akhil Roberts MD [STAFF PHYSICIAN] - 3-5 Days What to do if you have Problems For any increased pain, shortness of breath, bleeding, nausea or vomiting, chest pain, or any unexpected problems, contact your Primary Care Provider. Call [facility] ([phone]) or report to the closest Emergency Room. Call 911 if necessary. 05/03/1851 <Electronically signed by Owen Arauz MD> Date Owen Arauz MD Cosigner Signature (If Indicated): Date CC: Yon Hernandez DO DISCHARGE INSTRUCTION Observed: 05/03/2018 Status: F Source: [place] 8:49 AM [facility] REPOSITORY [facility] Medical Records Department [address] [place] [address] Discharge Instruction 05/03/18847 MR#: [id number] Acct: [id number] Name: NORMA HAWKINS Rep #: [id number] : 1970 47 From: Owen Arauz MD PCP: Yon Hernandez DO Status: REG ER ED Disposition - Plan for ED Patient: Disposition: Home or Assisted Living Chief Complaint: Chest Pain Instructions: ED Chest Pain Atypical Unkn Cause Prescriptions: Naproxen [Naprosyn] 500 mg PO BID PRN #20 tab Referrals: Akhil Roberts MD [STAFF PHYSICIAN] - 3-5 Days What to do if you have Problems For any increased pain, shortness of breath, bleeding, nausea or vomiting, chest pain, or any unexpected problems, contact your Primary Care Provider. Call [facility] ([phone]) or report to the closest Emergency Room. Call 911 if necessary. 05/03/18 0849 <Electronically signed by Owen Arauz MD> Date Owen Arauz MD Cosigner Signature (If Indicated): Date CC: Yon Hernandez DO CHEST 1 VIEW Observed: 05/03/2018 Status: F Source: [facility] (PORTABLE) 7:52 AM [facility] REPOSITORY [facility] Imaging Services [address] [place] [address] Chest 1 View (Portable) MR#: [id number] Acct: [id number] Name: NORMA HAWKINS Rep #: [id number] : 1970 F 47 From: Anthony Tran MD PCP: Yon Hernandez DO Status: REG ER Study: Chest 1 View (Portable) Date of Exam: 05/03/18 Exam# [id number] Ordering Dr: Owen Arauz MD STUDY: X-RAY CHEST REASON FOR EXAM: Female, 47 years old. 12 hour history of chest pain. TECHNIQUE: Single AP portable view of the chest. Comparison is made with prior study dated October 04, 2013. COMPARISON: None. FINDINGS: The lungs are clear and expanded. There is no demonstrated pleural abnormality. Normal size heart. Normal mediastinum and wilberto. Normal visualized pulmonary arteries. Normal visualized aortic arch and descending thoracic aorta. Normal visualized thoracic spine. Normal visualized ribs, clavicles, and shoulders. There is no demonstrated abnormality of the visualized soft tissue structures of the upper abdomen. RAD/Chest 1 View (Portable) IMPRESSION: Normal x-ray examination of the chest. Electronically Signed: Anthony Tran MD at 8:31 EDT Tel [phone], Service support , CC: Yon Hernandez DO; Owen Arauz MD Entertainment Reporter: Signed CBC W/DIFF, AUTOMATED Collected: 05/03/2018 Status: F Source: [facility] 7:35 AM [facility] REPOSITORY TYPE CODE TESTS RESULT OUT OF RANGE REFERENCE UNITS LAB L100.1000 4.4-11.0 K/mm3 Normal WBC 8.9 LAB L100.1200 4.2-5.4 M/mm3 Normal RBC 4.85 LAB L100.1300 12.0-15.0 g/dl High HGB 15.4 LAB L100.1400 37-47 % Normal HCT 44.5 LAB L100.1500 81-99 fL Normal MCV 91.8 LAB L100.1600 27.0-32.0 pg Normal MCH 31.8 LAB L100.1700 32-36 g/gl Normal MCHC 34.6 LAB L100.1810 11.6-14.6 % Normal RDW CV 12.9 LAB L100.1820 35.1-43.9 fl Normal RDW SD 43.2 LAB L100.1900 150-450 K/mm3 Normal PLT 297 LAB L100.2000 6.2-12.0 fl Normal MPV 9.1 LAB L100.2100 47-70 % Normal NEUT% 56.2 LAB L100.2200 19-41 % Normal LY% 28.8 LAB L100.2300 0-10 % High MONO% 11.2 LAB L100.2400 0-5 % Normal EO% 2.8 LAB L100.2500 0-1 % Normal BASO% 0.9 LAB L100.2550 0.0-0.9 % Normal IM GRAN % 0.100 Result Comment: IG% - Immature Granulocytes (promyelocytes, myelocytes and metamyelocytes) > 1% indicates that a LEFT SHIFT is Present. LAB L100.2620 2.0-7.7 X10 3/uL Normal Absolute Neut 5.0 LAB L100.2720 0.83-4.51 X10 3/ul Normal Absolute Lymph 2.56 Performed By: #### L100.0100 #### [facility] [address] [place], [address] BASIC METABOLIC Collected: 05/03/2018 Status: F Source: [facility] PROFILE (BMP) 7:35 AM [facility] REPOSITORY TYPE CODE TESTS RESULT OUT OF RANGE REFERENCE UNITS LAB L501.0100 74-106 mg/dL Normal GLU 89 Result Comment: Please note revised GLUCOSE reference range effective 2017. LAB L501.1000 7-18 mg/dL Normal BUN 14 LAB L501.1100 0.55-1.02 mg/dL Normal CREAT,SERUM 0.83 Result Comment: The validity of the calculated GFR AND GFRAA in patients over 70 years has not been determined. Clinical correlation is essential. LAB L501.1110 >60 mL/min Normal EST GFR 78 Result Comment: Non- GFR Calc LAB L501.1115 >60 mL/min Normal EST GFR - AA 94 Result Comment: GFR Calc LAB L501.1255 ml/min Normal Estimated CRCL 78.44 LAB L501.1300 10-20 RATIO Normal BUN/CRE 16.8 LAB L501.2200 8.5-10 mg/dL Normal .1 CA 9.2 LAB L501.5300 136-14 mmol/L Normal 5 NA 140 LAB L501.5600 3.5-5. mmol/L Normal 1 K 3.6 LAB L501.5900 98-107 mmol/L Normal CL 105 LAB L501.6100 21.0-3 mmol/L Normal 2.0 CO2 27.0 LAB L501.6200 5-15 Normal GAP 8 Performed By: #### L500.2500, L501.4010 #### [facility] [address] [place], [address] TROPONIN-I Collected: 05/03/2018 Status: F Source: [place] 7:35 AM [facility] REPOSITORY TYPE CODE TESTS RESULT OUT OF RANGE REFERENCE UNITS LAB L501.4010 <0.045 ng/mL Normal < 0.015 TROPONIN-I Result Comment: TROPONIN-I EXPECTED VALUES <0.045 Negative 0.045 - 0.590 Consistent with Cardiac Damage > OR = 0.600 Critical Value Not every elevated troponin is indicative of GA. These values should be used with clinical judgement in examining the patient's clinical picture for diagnosis. To establish a diagnosis of GA versus myocardial injury, there must be a demonstrated rise and/or fall in the troponin values, in addition to ischemic symptoms, EKG changes, new regional wall motion abnormality, and/or angiographical evidence. PLEASE NOTE: REFERENCE RANGES EDITED 18 Performed By: #### L500.2500, L501.4010 #### [facility] [address] [place], [address] PROGRESS Observed: 01/01/2018 Status: COMPLETED Source: [facility] 12:[facility] HNO ID: [id number] Author: Yon Vazquez Service: (none) Author Type: Physician Type: Progress Notes Filed: 01/01/2018 12:41 PM Note Text: CC: Norma Hawkins is a 47 year old female who presents to the office for 2 months follow up HPI: 4-5 months ago Depression, has been having chronic abdominal pain and bloating for months, has had comprehensive evaluation by Dr. Hillman and Gastroenterologists at [facility] without any findings, ?Was seen at [facility] and questioned about depression and determined that likely this was contributing to her symptoms. She states that immediately her abdominal pain stopped after discussing with [employer] about depression maybe being the cause of symptoms ?? 2 months ago PHQ 9 score today in office is 16, she denies SI or HI. 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 ?Interested in starting counseling and is going to start YOGA as well. ?? Tobacco use, interested in options to help her quit, smoking 10 cigarettes a day for many years. ?? Was given rx for Wellbutrin, was able to quit smoking in 2- 3 weeks, tapered off the Wellbutrin. ?? Going to psychologist at [place] and [facility], weekly, getting benefit from therapy. ? ?? Therapist thinks should restart antidepressant, she is admitting struggle with completing tasks, focusing, feeling lack of motivation. ? At last OFFICE VISIT 2 months ago, Her mood is doing well, she now has her 9 year old and 12 year old granddaughters living with her due to her dtr (their mother) involved with heroin abuse and she is in rehab. She denies any feelings of being overwhelmed or stressed. ? She is working on quitting smoking, she is down to 3-4 cigarettes a day, 1 pack lasting 1 week ? Admits to feeling shortness of breath for the last few days, no other associated symptoms including palpitations or fevers or chills or cough or sputum or dizziness/LH. No hx of anemia or thyroid dx. Currently She states that she believes the shortness of breath is due to anxiety, only occurring when she is feeling anxious. Not exertional. Is working on quitting smoking still, taking the wellbutrin as prescribed. Denies current depression. Doing well with raising her granddaughters. Right shoulder pain, started a few weeks ago, after YOGA, also with right wrist pain with certain movements such as carrying groceries, No obvoius injuries otherwise, no swelling or skin changes. Shoulder painful with abduction movements based on description, no use of NSAID or heat or ice PAST MEDICAL HISTORY Diagnosis Date - Diverticulosis - S/P lumbar fusion L4/5 - Tobacco abuse disorder PAST SURGICAL HISTORY Procedure Laterality Date - EGD W/O OR W/BRUSH/WASH 02/14/16 EGD with mac - LAPAROSCOPIC CHOLEYCYSTECTOMY 11/26/2015 - LUMBAR SPINE FUSION COMBINED 2007 lumbar fusion L4-L5 - OVARIAN CYSTECTOMY 84 - REMOVAL OF TONSILS; AGE 12 OR OVER 83 - S BALLOON,UTERINE ABLATION [address] Sutton - TUBAL LIGATION, 89 Current Outpatient Prescriptions: albuterol HFA (VENTOLIN HFA) 90 mcg/actuation inhaler Inhale 2 Puffs as instructed every 4 hours as needed for Wheezing/Shortness of Breath. buPROPion XL (WELLBUTRIN XL) 300 mg 24 hr tablet Take 1 tablet by mouth once daily. OLIVE OIL ORAL Take 4,000 mg by mouth once daily. coconut oil ondansetron (ZOFRAN, HYDROCHLORIDE,) 4 mg tablet Take 1 tablet by mouth once daily as needed (for nausea.). ibuprofen (ADVIL) 200 mg tablet Take 200 mg by mouth every 6 hours as needed. No current facility-administered medications for this visit. ALLERGIES Allergen Reactions - Codeine Hives - Fentanyl Other: See Comments Slow heart rate shallow resp. 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 Social History Main Topics Smoking status: Current Every Day Smoker Packs/day: 1.00 Years: 27.00 Types: Cigarettes Start date: 11/16/1988 Last attempt to quit: 06/11/2017 Smokeless status: Never Used Comment: 1/2 to 1 pack per day Alcohol use: Yes Comment: Occasionally Drug use: No Sexual activity: Yes control/protection: Tubal Ligation Comment: Ablation ROS: See HPI PE: BP 120/70 Pulse 60 Temp (Src) 98.6 (Left Tympanic) Resp 16 Wt 134 lb (60.8kg) Gen: AANDOX3, NAD, non-toxic appearing HEENT: PERRLA, EOMs intact b/l, nares without drainage, pharynx without erythema, exudate, lesions, or drainage. Uvula midline. Neck: No LAD, no thyromegaly, no meningismus. CV: RRR, no murmur Lungs: CTA b/l, no wheezing Skin: No rashes, lesions, or wounds on exposed skin. Right shoudler with pain with abduction, + impingement signs, otherwise negative exam Right wrist pain with resisted supination and ? Small ganglion cyst dorsal wrist medial ASSESSMENT/PLAN: 1. Severe major depression (HCC) - ICD9: 296.23, ICD10: F32.2 (primary diagnosis) - stable, continue wellbutrin 2. Acute shoulder bursitis, right - ICD9: 726.10, ICD10: M75.51 - signs of bursitis and rotator cuff tendinitis, use of NSAIDs vs. Prendisone, icing and stretches as d/w her today - PREDNISONE 10 MG TABLET 3. Lateral epicondylitis, right elbow - ICD9: 726.32, ICD10: M77.11 - see above, stretches and use of icing as d/w her today - PREDNISONE 10 MG TABLET 4. Ganglion cyst - ICD9: 727.43, ICD10: M67.40 - f/u prn 5. Dyspnea, unspecified type - ICD9: 786.09, ICD10: R06.00 - check CXR and PFTs and Echo if sypmtoms persist, needs to quit smoking as having been discussing with her 6. Tobacco use disorder - ICD9: 305.1, ICD10: F17.200 - Cessation encouraged. - Physiologic and physical aspects of tobacco addiction as well as strategies for quitting were discussed. - Counseling was given focusing on the harmful effects of this addiction especially given the patient's medical condition(s) which will be worsened because of the chemicals in tobacco. Yon Vazquez, DO Return if no improvement. Follow up with Yon Vazquez DO. Discussed risks, benefits, alternatives, and potential side effects of medications. Patient/Guardian expressed understanding and agreed with the plan. See patient instructions. Yon Vazquez DO [address] [place] [address] CNOV Observed: 01/01/2018 Status: COMPLETED Source: GUYS 12:00 PM [facility] REPOSITORY Office Visit (FAMPWS) NORMA HAWKINS ([id number]) 1970 F Date Time Provider Department 01/01/18 12:00 PM [facility] During your visit today, we recorded the following information about you: Temperature Pulse Respiration Blood pressure 98.6 degrees 60/minute 16/minute 120/70 Weight 60.8 kg Yon Vazquez DO 01/01/2018 12:41 PM Signed CC: Norma Aguilar Josefina is a 47 year old female who presents to the office for 2 months follow up HPI: 4-5 months ago Depression, has been having chronic abdominal pain and bloating for months, has had comprehensive evaluation by Dr. Hillman and Gastroenterologists at [facility] without any findings, ?Was seen at [facility] and questioned about depression and determined that likely this was contributing to her symptoms. She states that immediately her abdominal pain stopped after discussing with [employer] about depression maybe being the cause of symptoms ?? 2 months ago PHQ 9 score today in office is 16, she denies SI or HI. 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 ?Interested in starting counseling and is going to start YOGA as well. ?? Tobacco use, interested in options to help her quit, smoking 10 cigarettes a day for many years. ?? Was given rx for Wellbutrin, was able to quit smoking in 2- 3 weeks, tapered off the Wellbutrin. ?? Going to psychologist at [facility], weekly, getting benefit from therapy. ? ?? Therapist thinks should restart antidepressant, she is admitting struggle with completing tasks, focusing, feeling lack of motivation. ? At last OFFICE VISIT 2 months ago, Her mood is doing well, she now has her 9 year old and 12 year old granddaughters living with her due to her dtr (their mother) involved with heroin abuse and she is in rehab. She denies any feelings of being overwhelmed or stressed. ? She is working on quitting smoking, she is down to 3-4 cigarettes a day, 1 pack lasting 1 week ? Admits to feeling shortness of breath for the last few days, no other associated symptoms including palpitations or fevers or chills or cough or sputum or dizziness/LH. No hx of anemia or thyroid dx. Currently She states that she believes the shortness of breath is due to anxiety, only occurring when she is feeling anxious. Not exertional. Is working on quitting smoking still, taking the wellbutrin as prescribed. Denies current depression. Doing well with raising her granddaughters. Right shoulder pain, started a few weeks ago, after YOGA, also with right wrist pain with certain movements such as carrying groceries, No obvoius injuries otherwise, no swelling or skin changes. Shoulder painful with abduction movements based on description, no use of NSAID or heat or ice PAST MEDICAL HISTORY Diagnosis Date - Diverticulosis - S/P lumbar fusion L4/5 - Tobacco abuse disorder PAST SURGICAL HISTORY Procedure Laterality Date - EGD W/O OR W/BRUSH/WASH 02/14/16 EGD with mac - LAPAROSCOPIC CHOLEYCYSTECTOMY 11/26/2015 - LUMBAR SPINE FUSION COMBINED 2007 lumbar fusion L4-L5 - OVARIAN CYSTECTOMY 84 - REMOVAL OF TONSILS; AGE 12 OR OVER 83 - S BALLOON,UTERINE ABLATION [address] Sutton - TUBAL LIGATION, 89 Current Outpatient Prescriptions: albuterol HFA (VENTOLIN HFA) 90 mcg/actuation inhaler Inhale 2 Puffs as instructed every 4 hours as needed for Wheezing/Shortness of Breath. buPROPion XL (WELLBUTRIN XL) 300 mg 24 hr tablet Take 1 tablet by mouth once daily. OLIVE OIL ORAL Take 4,000 mg by mouth once daily. coconut oil ondansetron (ZOFRAN, HYDROCHLORIDE,) 4 mg tablet Take 1 tablet by mouth once daily as needed (for nausea.). ibuprofen (ADVIL) 200 mg tablet Take 200 mg by mouth every 6 hours as needed. No current facility-administered medications for this visit. ALLERGIES Allergen Reactions - Codeine Hives - Fentanyl Other: See Comments Slow heart rate shallow resp. 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[employer] Social History Main Topics Smoking status: Current Every Day Smoker Packs/day: 1.00 Years: 27.00 Types: Cigarettes Start date: 11/16/1988 Last attempt to quit: 06/11/2017 Smokeless status: Never Used Comment: 1/2 to 1 pack per day Alcohol use: Yes Comment: Occasionally Drug use: No Sexual activity: Yes control/protection: Tubal Ligation Comment: Ablation ROS: See HPI PE: BP 120/70 Pulse 60 Temp (Src) 98.6 (Left Tympanic) Resp 16 Wt 134 lb (60.8kg) Gen: AANDamp;OX3, NAD, non-toxic appearing HEENT: PERRLA, EOMs intact b/l, nares without drainage, pharynx without erythema, exudate, lesions, or drainage. Uvula midline. Neck: No LAD, no thyromegaly, no meningismus. CV: RRR, no murmur Lungs: CTA b/l, no wheezing Skin: No rashes, lesions, or wounds on exposed skin. Right shoudler with pain with abduction, + impingement signs, otherwise negative exam Right wrist pain with resisted supination and ? Small ganglion cyst dorsal wrist medial ASSESSMENT/PLAN: 1. Severe major depression (HCC) - ICD9: 296.23, ICD10: F32.2 (primary diagnosis) - stable, continue wellbutrin 2. Acute shoulder bursitis, right - ICD9: 726.10, ICD10: M75.51 - signs of bursitis and rotator cuff tendinitis, use of NSAIDs vs. Prendisone, icing and stretches as d/w her today - PREDNISONE 10 MG TABLET 3. Lateral epicondylitis, right elbow - ICD9: 726.32, ICD10: M77.11 - see above, stretches and use of icing as d/w her today - PREDNISONE 10 MG TABLET 4. Ganglion cyst - ICD9: 727.43, ICD10: M67.40 - f/u prn 5. Dyspnea, unspecified type - ICD9: 786.09, ICD10: R06.00 - check CXR and PFTs and Echo if sypmtoms persist, needs to quit smoking as having been discussing with her 6. Tobacco use disorder - ICD9: 305.1, ICD10: F17.200 - Cessation encouraged. - Physiologic and physical aspects of tobacco addiction as well as strategies for quitting were discussed. - Counseling was given focusing on the harmful effects of this addiction especially given the patient's medical condition(s) which will be worsened because of the chemicals in tobacco. Yon Vazquez DO Return if no improvement. Follow up with Yon Vazquez DO. Discussed risks, benefits, alternatives, and potential side effects of medications. Patient/Guardian expressed understanding and agreed with the plan. See patient instructions. Yon Vazquez DO [address] [place] [address] Referring Provider: YON VAZQUEZ [[id number]] Allergies As of Date: 01/01/2018 Noted Allergy Reaction CODEINE 12/23/2011 4 - Hives FENTANYL 12/23/2011 14 - Other: See Comments Comments: Slow heart rate shallow resp. Date Reviewed: 01/01/2018 Reviewed by: Arian Pickett LPN - Fully Assessed Reason for Visit: Follow Up [171] Cmt: 3 months Primary Visit Diagnosis:Severe major depression (HCC) [F32.2] Other Visit Diagnoses:Acute shoulder bursitis, right [M75.51] Lateral epicondylitis, right elbow [M77.11] Ganglion cyst [M67.40] Dyspnea, unspecified type [R06.00] Tobacco use disorder [F17.200] Order(s):predniSONE (DELTASONE) 10 mg tabletTake 4 tabs daily for 3 days, then 2 tabs daily for 3 days, then 1 tab daily for 3 days with food.Disp: 21 tabletRfl: 0 Prescriptions as of 01/01/2018 Sig: ALBUTEROL SULFATE HFA 90 MCG/* Inhale 2 Puffs as instructed * BUPROPION XL 300 MG 24 HR TAB Take 1 tablet by mouth once d* OLIVE OIL ORAL Take 4,000 mg by mouth once d* ONDANSETRON HCL 4 MG TABLET Take 1 tablet by mouth once d* IBUPROFEN 200 MG TABLET Take 200 mg by mouth every 6 * PREDNISONE 10 MG TABLET Take 4 tabs daily for 3 days,* Problem List As Of Date 01/01/2018 Noted Resolved PMDD (premenstrual dysphoric disorder) [F32.81] INVALID FOR*05/25/2013 Breast hypertrophy in female [N62] INVALID FOR* S/P endometrial ablation [Z98.890] INVALID FOR* Microscopic hematuria [R31.29] INVALID FOR* Prescriptions ordered this encounter Disp Refills Start End PREDNISONE 10 MG TABLET 21 t* 0 01/01/2018 01/10/2018 Sig: Take 4 tabs daily for 3 days, then 2 tabs daily for 3 days, then 1 tab daily for 3 days with food. Encounter Status:Closed by YON VAZQUEZ DO on 01/01/18 PROGRESS Observed: 12/10/2017 Status: COMPLETED Source: GUYS 9:33 AM [facility] REPOSITORY HNO ID: [id number] Author: Juanis Newman Psr Service: (none) Author Type: (none) Type: Progress Notes Filed: 12/10/2017 9:33 AM Note Text: pap logged, letter sent. Juanis Newman Psr HPV W/GENOTYPE Collected: 11/27/2017 Status: F Source: GUYS 10:30 AM [facility] REPOSITORY TYPE CODE TESTS RESULT OUT OF REFERENCE UNITS RANGE LAB HPVT16 HPV HighRisk Negative for Type 16 HPV DNA high risk type 16 by PCR. LAB HPVT18 HPV HighRisk Negative for Type 18 HPV DNA high risk type 18 by PCR. LAB HPVHRO HPV HighRisk Negative for Other HPV DNA high risk types: 31,33,35,39,45 ,51,52,56,58,5 9,66,68 by PCR. Result Comment: This test was developed and its performance characteristics determined by [facility]'s [facility] [place] ([facility]). It has not been cleared or approved by the FDA. [facility] is regulated under CLIA as qualified to perform high-complexity testing. This test is used for clinical purposes. It should not be regarded as inv estigational or for research. Performed By: #### HPVHRR #### [facility] [address] [place], [place] [address] CYTOLOGY Observed: 11/27/2017 Status: C Source: GUYS 10:30 AM [facility] REPOSITORY ADDITIONAL PROCEDURES PRESENT Specimen originated from [facility] Specimen #: [id number] Submitting Physician: ALICIA JONES MD SPECIMEN SUBMITTED A: CERVICAL, SCREENING, FLUID FINAL DIAGNOSIS A. CERVICAL, SCREENING, FLUID Satisfactory for interpretation. Negative for intraepithelial lesion or malignancy. This specimen has been analyzed by the InboxQPrep Imaging System, an automated imaging and review system, which assists the laboratory in evaluating cells on ThinPrep Pap tests. Following automated imaging, selected paniagua from every slide are reviewed by a software systems analyst. SYLVAIN Staton (ASCP) (Electronic Signature) ADDITIONAL PROCEDURE(S) HUMAN PAPILLOMA VIRUS Date Ordered: 11/30/2017 Date Reported: 12/01/2017 Procedure Results and Interpretation Negative for HPV DNA high risk type 16 by PCR. Negative for HPV DNA high risk type 18 by PCR. Negative for HPV DNA high risk types: 31,33,35,39,45,51,52,56,58,59,66,68 by PCR. This test was developed and its performance characteristics determined by [facility] [place] ([facility]). It has not been cleared or approved by the FDA. [facility] is regulated under CLIA as qualified to perform high-complexity testing. This test is used for clinical purposes. It should not be regarded as investigational or for research. CLINICAL DATA ROUTINE EXAM, HPV Testing: Yes, automatic HPV patients over 30 Date of Last Menstrual Period: Ablation STAINS A: CERVICAL, SCREENING, FLUID THIN PREP [employer] Emily Delarosa M.D., Rig Manager Date of Report: 12/09/2017 Date of Procedure: 11/27/2017 Date of Receipt: 11/30/2017 Submitted by: ALICIA JONES MD Location: [facility] Diagnostic interpretation performed at [facility], [address] [place] [address]. The Pap Smear is a screening test for cervical cancer. False negative results occur with all screening tests, emphasizing the need for rescreening at recommended intervals, and clinical correlation. PROGRESS Observed: 11/27/2017 Status: COMPLETED Source: GUYS 9:50 AM [facility] REPOSITORY HNO ID: [id number] Author: Alicia Jones Service: (none) Author Type: Physician Type: Progress Notes Filed: 11/27/2017 10:30 AM Note Text: Manager Technical offered: Patient declines. Norma Hawkins is a 47 year old who presents for her annual gynecologic exam without complaints. Has custody of her 2 grandduaghters again- mother in rehab for heroin and other illicit drugs. 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 Very tough hear with depression and stress- started on wellbutrin- helping a little. Menses: none- Ablation. Contraception: tubal ligation HPV vaccine: No Last Pap: 2012 normal HPV: negative History of abnormal pap: No Last mammogram: 2017normal Sexually active: Yes- not as frequent lower libido and ED in History of STDS: None Patient concerns for STD exposure: No. Pain with intercourse: No Postcoital bleeding: No Hot flashes: No Night sweats: Yes Vaginal dryness: No Exercise:yoga Diet: Balanced Obstetric History T4 L5 SAB0 TAB0 Ectopic0 Multiple1 Live Births0 PAST MEDICAL HISTORY Diagnosis Date - Diverticulosis - S/P lumbar fusion L4/5 - Tobacco abuse disorder PAST SURGICAL HISTORY Procedure Laterality Date - EGD W/O OR W/BRUSH/WASH 02/14/16 EGD with mac - LAPAROSCOPIC CHOLEYCYSTECTOMY 11/26/2015 - LUMBAR SPINE FUSION COMBINED 2007 lumbar fusion L4-L5 - OVARIAN CYSTECTOMY 84 - REMOVAL OF TONSILS; AGE 12 OR OVER 83 - S BALLOON,UTERINE ABLATION [address] Sutton - TUBAL LIGATION, 89 FAMILY HISTORY Problem Relation Age of Onset - Hypertension Father - Lung Cancer [OTHER] Father mets to brain - Heart Mother - Hypertension Mother - Kidney Disease Mother - Cervical Cancer Paternal Grandmother and ovarian - Breast Cancer Maternal Aunt - Kidney Disease Daughter hydronephrosis - Colon Cancer Other P-cousin - Cancer Paternal Uncle throat - Reilly's syndrome [OTHER] Other SOCIAL HISTORY Social History Substance Use Topics - Smoking status: Current Every Day Smoker Packs/day: 1.00 Years: 27.00 Types: Cigarettes Start date: 11/16/1988 Last attempt to quit: 06/11/2017 - Smokeless tobacco: Never Used Comment: 1/2 to 1 pack per day - Alcohol use Yes Comment: Occasionally REVIEW OF SYSTEMS Abdomen: No abdominal pain, nausea, vomiting, diarrhea, or constipation. No bloating, early satiety, indigestion, or increased flatulence. Bladder: no dysuria. More frequency and urgency. Some USI Breast: No breast lumps, nipple d/c, overlying skin changes, redness or skin retraction. Allergies and current medication updated:Yes EXAM: There were no vitals taken for this visit. GENERAL: pleasant, female in no apparent distress HEENT: Normocephalic, atraumatic, mucus membranes moist and no lesions NECK: Supple, full range of motion, no adenopathy and thyroid normal DERMATOLOGY: Normal, without lesions, non-icteric and non-hirsute BREAST: soft, non-tender, symmetric, no dominant mass, normal nipple-areolar complex, no lymphadenopathy and no nipple discharge ABDOMEN: soft, non-tender and no masses PELVIC: external genitalia normal, normal Bartholin's glands, urethra, [place]'s glands, no vulvar lesions, no cervical lesions, good vaginal support, physiologic discharge present, normal appearing perineal body and perianal region BIMANUAL: uterus normal size, shape and consistency, no adnexal masses and Mild tenderness RECTOVAGINAL: deferred. NEURO: alert and oriented x3,exam grossly non-focal EXTREMITIES: normal ASSESSMENT/PLAN: 1) Health maintenance: Pap done with HPV. Mammogram up to date . Nutrition, exercise and routine health maintenance exams reviewed. Calcium/Vitamin D supplementation information provided. Smoking cessation: Benefits of smoking cessation reviewed. 2) Contraception: tubal ligation. Contraceptive options reviewed and information provided. 3) STD screening: Declined STD check. 4) Follow up one year or sooner as needed 5) support given today 6) urgency and frequency reviewed- lifestyle modifications reviewed. Will try x 6 weeks then may request medication for OAB. brefly reviewed in tone for USI and urgency Alicia Crawford MD CNCO Observed: 11/10/2017 Status: COMPLETED Source: GUYS 12:00 AM [facility] REPOSITORY Letter Text [address] [place] [address] [phone] 11/10/2017 Norma Hawkins [address] [facility] [address] Dear Ms. Hawkins: Due to a change in the provider's schedule, it has been necessary to reschedule your appointment. Enclosed please find a new appointment reminder that will replace the one previously sent to you. If this appointment is not convenient for you, please contact our office at [phone]. Thank you for choosing the [facility] as your Healthcare Provider. Sincerely, Appointment Office Department of Family Medicine Enclosure CBC Collected: 10/30/2017 Status: F Source: GUYS 12:05 PM [facility] REPOSITORY TYPE CODE TESTS RESULT OUT OF REFERENCE UNITS RANGE LAB WBC 3.70-11.00 k/uL WBC 8.15 LAB RBC 3.90-5.20 m/uL RBC 4.71 LAB HGB 11.5-15.5 g/dL Hemoglobin 14.9 LAB HCT 36.0-46.0 % Hematocrit 44.3 LAB MCV 80.0-100.0 fL MCV 94.1 LAB MCH 26.0-34.0 pG MCH 31.6 LAB MCHC 30.5-36.0 g/dL MCHC 33.6 LAB RDWCV 11.5-15.0 % RDW-CV 12.2 LAB PLTCT 150-400 k/uL Platelet Count 306 LAB MPV 9.0-12.7 fL MPV 9.2 LAB ABSNUC <0.01 k/uL Absolute nRBC <0.01 Performed By: #### CBC, CMP, TSH, FT4 #### [facility] [address] [place], [place] [address] COMP METABOLIC PANEL Collected: 10/30/2017 Status: F Source: GUYS 12:05 PM [facility] REPOSITORY TYPE CODE TESTS RESULT OUT OF REFERENCE UNITS RANGE LAB TP 6.3-8.0 g/dL Protein, Total 7.6 LAB ALB 3.9-4.9 g/dL Albumin 4.6 LAB CA 8.5-10.2 mg/dL Calcium, Total 9.5 LAB TBIL 0.2-1.3 mg/dL Bilirubin, Total 0.6 LAB ALKP 32-117 U/L Alkaline Phosphatase 64 LAB AST 13-35 U/L AST 16 LAB GLU 74-99 mg/dL Glucose 80 Result Comment: The [place] Diabetes Association (ADA) provides guidance for cutoff values for fasting glucose and random glucose. The ADA defines fasting as no caloric intake for at least 8 hours. Fas ting plasma glucose results between 100 to 125 mg/dL indicate increased risk for diabetes (prediabetes). Fasting plasma glucose results greater than or equal to 126 mg/dL meet the criteria for diagnosis of diabetes. In the absence of unequivocal hyperglycemia, results should be confirmed by repeat testing. In a patient with classic symptoms of hyperglycemia or hyperglycemic crisis, random plasma glucose results greater than or equal to 200 mg/dL meet the criteria for diagnosis of diabetes. Reference: Standards of Medical Care in Diabetes 2016, [place] Diabetes Association. Diabetes Care. 2016.39(Suppl 1). LAB BUN 7-21 mg/dL BUN 12 LAB CRET 0.58-0.96 mg/dL Creatinine 0.85 LAB NA 136-144 mmol/L Sodium 136 LAB K 3.7-5.1 mmol/L Potassium 3.9 LAB CL 97-105 mmol/L Chloride 100 LAB CO2 22-30 mmol/L CO2 23 LAB AGAP 9-18 mmol/L Anion Gap 13 LAB ALT 7-38 U/L ALT 15 LAB GFRAA eGFR- Amer. >60 LAB GFRNAA . eGFR-All Other Races >60 Result Comment: eGFR (Estimated GFR) Units of measure: mL/min/1.73 meters squared eGFR is derived from the reexpressed MDRD Study equation using the following parameters: serum creatinine, age, gender and race. The creatinine assay has been calibrated to be traceable to IDMS. An eGFR <60 mL/min/1.73m2 for >3 months is consistent with chronic kidney disease. Refer to KDOQI guidelines for clinical interpretation. In patients with unstable renal function, e.g. those with acute kidney injury, the eGFR may not accurately reflect actual GFR. Performed By: #### CBC, CMP, TSH, FT4 #### [facility] [address] [place], [place] [id number] TSH Collected: 10/30/2017 Status: F Source: GUYS 12:05 [facility] REPOSITORY TYPE CODE TESTS RESULT OUT OF RANGE REFERENCE UNITS LAB TSH 0.400-5.500 uU/mL TSH 1.110 Result Comment: If the patient is , TSH reference range varies by gestational period: First Trimester 0.100-2.500 uU/mL Second Trimester 0.200-3.000 uU/mL Third Trimester 0.300-3.000 uU/mL References: 1. Mayer L, Abdias M, Chriss EK, et al. Management of Thyroid Dysfunction during and : An Endocrine Society Clinical Practice Guideline. J Clin Endocrinol Metab, 2012:97:0872-6444. 2. Chava BENEDICT. Overview of thyroid disease in . UpToDate. 2016. Accessed on April 11, 2016. Performed By: #### CBC, CMP, TSH, FT4 #### [facility] [address] [place], [place] [address] FREE T4 Collected: 10/30/2017 Status: F Source: GUYS 12:05 [facility] REPOSITORY TYPE CODE TESTS RESULT OUT OF RANGE REFERENCE UNITS LAB FT4 0.9-1.7 ng/dL Free T4 1.3 Performed By: #### CBC, CMP, TSH, FT4 #### [facility] [address] [place], [place] [address] PROGRESS Observed: 10/30/2017 Status: COMPLETED Source: GUYS 12:02 PM [facility] REPOSITORY HNO ID: [id number] Author: Yon Vazquez Service: (none) Author Type: Physician Type: Progress Notes Filed: 10/30/2017 12:06 PM Note Text: CC: Norma Hawkins is a 47 year old female who presents to the office for 2 months follow up HPI: 4-5 months ago Depression, has been having chronic abdominal pain and bloating for months, has had comprehensive evaluation by Dr. Hillman and Gastroenterologists at [facility] without any findings, ?Was seen at [facility] and questioned about depression and determined that likely this was contributing to her symptoms. She states that immediately her abdominal pain stopped after discussing with COGNOS TM1 DEVELOPER about depression maybe being the cause of symptoms ?? 2 months ago PHQ 9 score today in office is 16, she denies SI or HI. 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 ?Interested in starting counseling and is going to start YOGA as well. ?? Tobacco use, interested in options to help her quit, smoking 10 cigarettes a day for many years. ? Was given rx for Wellbutrin, was able to quit smoking in 2- 3 weeks, tapered off the Wellbutrin. ? Going to psychologist at [facility], weekly, getting benefit from therapy. ? Therapist thinks should restart antidepressant, she is admitting struggle with completing tasks, focusing, feeling lack of motivation. Currently Her mood is doing well, she now has her 9 year old and 12 year old granddaughters living with her due to her dtr (their mother) involved with heroin abuse and she is in rehab. She denies any feelings of being overwhelmed or stressed. She is working on quitting smoking, she is down to 3-4 cigarettes a day, 1 pack lasting 1 week Admits to feeling shortness of breath for the last few days, no other associated symptoms including palpitations or fevers or chills or cough or sputum or dizziness/LH. No hx of anemia or thyroid dx. PAST MEDICAL HISTORY Diagnosis Date - Diverticulosis - S/P lumbar fusion L4/5 - Tobacco abuse disorder PAST SURGICAL HISTORY Procedure Laterality Date - EGD W/O OR W/BRUSH/WASH 02/14/16 EGD with mac - LAPAROSCOPIC CHOLEYCYSTECTOMY 11/26/2015 - LUMBAR SPINE FUSION COMBINED 2007 lumbar fusion L4-L5 - OVARIAN CYSTECTOMY 84 - REMOVAL OF TONSILS; AGE 12 OR OVER 83 - S BALLOON,UTERINE ABLATION [address] Sutton - TUBAL LIGATION, 89 Current Outpatient Prescriptions: buPROPion XL (WELLBUTRIN XL) 300 mg 24 hr tablet Take 1 tablet by mouth once daily. OLIVE OIL ORAL Take 4,000 mg by mouth once daily. coconut oil ondansetron (ZOFRAN, HYDROCHLORIDE,) 4 mg tablet Take 1 tablet by mouth once daily as needed (for nausea.). ibuprofen (ADVIL) 200 mg tablet Take 200 mg by mouth every 6 hours as needed. albuterol HFA (VENTOLIN HFA) 90 mcg/actuation inhaler Inhale 2 Puffs as instructed every 4 hours as needed for Wheezing/Shortness of Breath. No current facility-administered medications for this visit. ALLERGIES Allergen Reactions - Codeine Hives - Fentanyl Other: See Comments Slow heart rate shallow resp. 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[employer] Social History Main Topics Smoking status: Current Every Day Smoker Packs/day: 1.00 Years: 27.00 Types: Cigarettes Start date: 11/16/1988 Last attempt to quit: 06/11/2017 Smokeless status: Never Used Comment: 1/2 to 1 pack per day Alcohol use: Yes Comment: Occasionally Drug use: No Sexual activity: Yes control/protection: Tubal Ligation Comment: Ablation ROS: See HPI PE: BP 122/78 Pulse 72 Temp (Src) 98.3 (Left Tympanic) Resp 12 Wt 134 lb (60.8kg) SpO2 98% Gen: AANDOX3, NAD, non-toxic appearing HEENT: PERRLA, EOMs intact b/l, nares without drainage, pharynx without erythema, exudate, lesions, or drainage. Uvula midline. Neck: No LAD, no thyromegaly, no meningismus. CV: RRR, no murmur Lungs: CTA b/l, no wheezing Skin: No rashes, lesions, or wounds on exposed skin. ASSESSMENT/PLAN: 1. Severe major depression (HCC) - ICD9: 296.23, ICD10: F32.2 (primary diagnosis) - stable, continue Wellbutrin, much improved. 2. Dyspnea, unspecified type - ICD9: 786.09, ICD10: R06.00 - EKG in office sinus bradycardia, if symptoms continue then will need CXR and Echo, normal lung exam today in office, labs as ordered, prn use of Albuterol - ECG COMPLETE W INTERPRETATION - TSH BLD - CBC - COMP METABOLIC PANEL - T4 FREE/FREE THYROX - ALBUTEROL SULFATE HFA 90 MCG/ACTUATION AEROSOL INHALER 3. Tobacco use disorder - ICD9: 305.1, ICD10: F17.200 - Cessation encouraged. - Physiologic and physical aspects of tobacco addiction as well as strategies for quitting were discussed. - Counseling was given focusing on the harmful effects of this addiction especially given the patient's medical condition(s) which will be worsened because of the chemicals in tobacco. - Counseling was given 3-4 minutes. - Prescription for bupropion (Wellbutrin) given Yon Vazquez DO Return if no improvement. Follow up with Yon Vazquez DO. Discussed risks, benefits, alternatives, and potential side effects of medications. Patient/Guardian expressed understanding and agreed with the plan. See patient instructions. Yon Vazquez DO [address] [place] [address] CNOV Observed: 10/30/2017 Status: COMPLETED Source: GUYS 11:20 AM [facility] REPOSITORY Office Visit (FAMPWS) NORMA HAWKINS ([id number]) 1970 F Date Time Provider Department 10/30/17 11:20 AM YON VAZQUEZ During your visit today, we recorded the following information about you: Temperature Pulse Respiration Blood pressure 98.3 degrees 72/minute 12/minute 122/78 Weight 60.8 kg Yon Vazquez DO 10/30/2017 12:06 PM Signed CC: Norma Hawkins is a 47 year old female who presents to the office for 2 months follow up HPI: 4-5 months ago Depression, has been having chronic abdominal pain and bloating for months, has had comprehensive evaluation by Dr. Hillman and Gastroenterologists at [facility] without any findings, ?Was seen at [facility] and questioned about depression and determined that likely this was contributing to her symptoms. She states that immediately her abdominal pain stopped after discussing with COGNOS TM1 DEVELOPER about depression maybe being the cause of symptoms ?? 2 months ago PHQ 9 score today in office is 16, she denies SI or HI. 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 ?Interested in starting counseling and is going to start YOGA as well. ?? Tobacco use, interested in options to help her quit, smoking 10 cigarettes a day for many years. ? Was given rx for Wellbutrin, was able to quit smoking in 2- 3 weeks, tapered off the Wellbutrin. ? Going to psychologist at [facility], weekly, getting benefit from therapy. ? Therapist thinks should restart antidepressant, she is admitting struggle with completing tasks, focusing, feeling lack of motivation. Currently Her mood is doing well, she now has her 9 year old and 12 year old granddaughters living with her due to her dtr (their mother) involved with heroin abuse and she is in rehab. She denies any feelings of being overwhelmed or stressed. She is working on quitting smoking, she is down to 3-4 cigarettes a day, 1 pack lasting 1 week Admits to feeling shortness of breath for the last few days, no other associated symptoms including palpitations or fevers or chills or cough or sputum or dizziness/LH. No hx of anemia or thyroid dx. PAST MEDICAL HISTORY Diagnosis Date - Diverticulosis - S/P lumbar fusion L4/5 - Tobacco abuse disorder PAST SURGICAL HISTORY Procedure Laterality Date - EGD W/O OR W/BRUSH/WASH 02/14/16 EGD with mac - LAPAROSCOPIC CHOLEYCYSTECTOMY 11/26/2015 - LUMBAR SPINE FUSION COMBINED 2007 lumbar fusion L4-L5 - OVARIAN CYSTECTOMY 84 - REMOVAL OF TONSILS; AGE 12 OR OVER 83 - S BALLOON,UTERINE ABLATION [address] Sutton - TUBAL LIGATION, 89 Current Outpatient Prescriptions: buPROPion XL (WELLBUTRIN XL) 300 mg 24 hr tablet Take 1 tablet by mouth once daily. OLIVE OIL ORAL Take 4,000 mg by mouth once daily. coconut oil ondansetron (ZOFRAN, HYDROCHLORIDE,) 4 mg tablet Take 1 tablet by mouth once daily as needed (for nausea.). ibuprofen (ADVIL) 200 mg tablet Take 200 mg by mouth every 6 hours as needed. albuterol HFA (VENTOLIN HFA) 90 mcg/actuation inhaler Inhale 2 Puffs as instructed every 4 hours as needed for Wheezing/Shortness of Breath. No current facility-administered medications for this visit. ALLERGIES Allergen Reactions - Codeine Hives - Fentanyl Other: See Comments Slow heart rate shallow resp. 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[employer] Social History Main Topics Smoking status: Current Every Day Smoker Packs/day: 1.00 Years: 27.00 Types: Cigarettes Start date: 11/16/1988 Last attempt to quit: 06/11/2017 Smokeless status: Never Used Comment: 1/2 to 1 pack per day Alcohol use: Yes Comment: Occasionally Drug use: No Sexual activity: Yes control/protection: Tubal Ligation Comment: Ablation ROS: See HPI PE: BP 122/78 Pulse 72 Temp (Src) 98.3 (Left Tympanic) Resp 12 Wt 134 lb (60.8kg) SpO2 98% Gen: AANDamp;OX3, NAD, non-toxic appearing HEENT: PERRLA, EOMs intact b/l, nares without drainage, pharynx without erythema, exudate, lesions, or drainage. Uvula midline. Neck: No LAD, no thyromegaly, no meningismus. CV: RRR, no murmur Lungs: CTA b/l, no wheezing Skin: No rashes, lesions, or wounds on exposed skin. ASSESSMENT/PLAN: 1. Severe major depression (HCC) - ICD9: 296.23, ICD10: F32.2 (primary diagnosis) - stable, continue Wellbutrin, much improved. 2. Dyspnea, unspecified type - ICD9: 786.09, ICD10: R06.00 - EKG in office sinus bradycardia, if symptoms continue then will need CXR and Echo, normal lung exam today in office, labs as ordered, prn use of Albuterol - ECG COMPLETE W INTERPRETATION - TSH BLD - CBC - COMP METABOLIC PANEL - T4 FREE/FREE THYROX - ALBUTEROL SULFATE HFA 90 MCG/ACTUATION AEROSOL INHALER 3. Tobacco use disorder - ICD9: 305.1, ICD10: F17.200 - Cessation encouraged. - Physiologic and physical aspects of tobacco addiction as well as strategies for quitting were discussed. - Counseling was given focusing on the harmful effects of this addiction especially given the patient's medical condition(s) which will be worsened because of the chemicals in tobacco. - Counseling was given 3-4 minutes. - Prescription for bupropion (Wellbutrin) given Yon Vazquez DO Return if no improvement. Follow up with Yon Vazquez DO. Discussed risks, benefits, alternatives, and potential side effects of medications. Patient/Guardian expressed understanding and agreed with the plan. See patient instructions. Yon Vazquez DO [address] [place] [address] Referring Provider: YON VAZQUEZ [[id number]] Allergies As of Date: 10/30/2017 Noted Allergy Reaction CODEINE 12/23/2011 4 - Hives FENTANYL 12/23/2011 14 - Other: See Comments Comments: Slow heart rate shallow resp. Date Reviewed: 10/30/2017 Reviewed by: Inés Romano Band Splitter - Fully Assessed Reason for Visit: 2 month follow up [Other] Primary Visit Diagnosis:Severe major depression (HCC) [F32.2] Other Visit Diagnoses:Dyspnea, unspecified type [R06.00] Tobacco use disorder [F17.200] Order(s):ECG COMPLETE W INTERPRETATION [ECG01] Order #: [id number] FUTURE TSH BLD [SQTSH] Order #: [id number] FUTURE CBC [SQCBC] Order #: [id number] FUTURE COMP METABOLIC PANEL [SQCMP] Order #: [id number] FUTURE T4 FREE/FREE THYROX [SQFT4] Order #: [id number] FUTURE albuterol HFA (VENTOLIN HFA) 90 mcg/actuation inhalerInhale 2 Puffs as instructed every 4 hours as needed for Wheezing/Shortness of Breath.Disp: 1 InhalerRfl: 0 Prescriptions as of 10/30/2017 Sig: BUPROPION XL 300 MG 24 HR TAB Take 1 tablet by mouth once d* OLIVE OIL ORAL Take 4,000 mg by mouth once d* ONDANSETRON HCL 4 MG TABLET Take 1 tablet by mouth once d* IBUPROFEN 200 MG TABLET Take 200 mg by mouth every 6 * ALBUTEROL SULFATE HFA 90 MCG/* Inhale 2 Puffs as instructed * Problem List As Of Date 10/30/2017 Noted Resolved PMDD (premenstrual dysphoric disorder) [F32.81] INVALID FOR*05/25/2013 Breast hypertrophy in female [N62] INVALID FOR* S/P endometrial ablation [Z98.890] INVALID FOR* Microscopic hematuria [R31.29] INVALID FOR* Prescriptions ordered this encounter Disp Refills Start End ALBUTEROL SULFATE HFA 90 MCG/ACTUATI* 1 In* 0 10/30/2017 Route: INHALATION Sig: Inhale 2 Puffs as instructed every 4 hours as needed for Wheezing/Shortness of Breath. Encounter Status:Closed by YON VAZQUEZ DO on 10/30/17 ALLERGIES ALLERGIES DATE TYPE / CODE NAME / CODE REACTION SEVERITY SOURCE 09/22/2018 Drug codeine/H965707 Hives Unknown [facility]/416 550(RXNORM) [facility] 784400(SNOM Repository ED CT) 09/22/2018 Drug fentanyl/D96524 Shortness of Unknown [facility]/416 3571(RXNORM) [facility] 769960(SNOM Repository ED CT) 12/23/2011 DRUG CODEINE HIVES [facility]/419 [facility] 199801(SNOM Repository ED CT) 12/23/2011 DRUG FENTANYL OTHER: [facility] 333872(SNOM Repository ED CT) Drug CODEINE/4008363 HIVES Moderate Jose Antonio [facility]/416 6(RXNORM) ([facility] 186103(SNOM Modifier) Repository ED CT) (Qualifier Value) ENCOUNTERS ENCOUNTERS ADMIT/DISCHARGE ACCOUNT ADMITTING ENCOUNTER LOCATION SOURCE NUMBER CLASS 09/24/2018/09/27/20 [id number] Ambulatory [address] Repository 09/23/2018/09/24/20 [id number] Ambulatory [address] Repository 09/22/2018/09/22/20 [id number] Emergency [address] ing:ED Repository 09/09/2018/09/09/20 [id number] Ambulatory [address] ing:SDCRoom: Repository AC16 09/06/2018/09/07/20 [id number] Ambulatory [address] Repository 08/19/2018/08/19/20 [id number] Ambulatory [address] Repository 08/16/2018/08/17/20 [id number] Ambulatory [address] Repository 08/16/2018/08/16/20 [id number] Ambulatory [address] Repository 08/16/2018/08/18/20 [id number] Ambulatory [address] Repository 07/26/2018/07/26/20 [id number] Emergency [address] ing:ED Repository 07/13/2018/07/14/20 [id number] Ambulatory [address] Repository 07/07/2018/07/07/20 [id number] Ambulatory [address] Repository 07/05/2018/07/06/20 [id number] Ambulatory [address] Repository 07/05/2018/07/05/20 [id number] OLIVER GARCIA Ambulatory [address] Repository 07/04/2018/07/04/20 [id number] OLIVER GARCIA Emergency [address] [place] [address] oom: ERBed: [facility] Repository 05/07/2018 [id number] [facility] ing:[facility] Repository 05/07/2018 [id number] Ambulatory BMSBuilding:[facility] Repository 05/05/2018/05/06/20 [id number] Ambulatory [address] Repository 05/03/2018/05/03/20 [id number] Emergency Leslie Lea [facility] ing:ED Repository 01/01/2018/01/05/20 [id number] Ambulatory [address] Repository 11/27/2017/12/01/19 [id number] Ambulatory [address] Repository 11/18/2017/11/18/19 [id number] JOSE ANTONIO, [facility] [address] [place] [address] Repository 10/30/2017/10/30/19 [id number] Ambulatory [address] Repository 10/30/2017 [id number] Ambulatory [facility] Repository 10/30/2017/10/30/19 [id number] Ambulatory [address] Repository PAYERS PAYERS ENCOUNTER GUARANTOR PAYER SUBSCRIBER SOURCE 09/22/2018 COREENA A Primary COREENA A Lea [id number] TR Insurance:AULTCAREScionHealthB: [address] Number: [id number] Hospital [address]Mwx: 740 [id number] Repository [phone] (HP) Date:9129-13-41RS [address] [place] [id number]: 09/22/2018 Secondary DICKSON L Leslie Insurance:MEDICAL JOHNSONDOB: [facility] [id number] [facility] Number: Repository [id number] Date:3511-18-07IG [address] [place] [phone]: 09/22/2018 Tertiary NOT GIVENUNK Leslie Insurance:SELF PAY [facility] Number: Effective Repository Date:2018-09-22 09/09/2018 COREENA A Primary COREENA A Lea [id number] TR Insurance:LTCAREPoli FRESNODOB: [address] [place] Number: [id number] Hospital [address]Hgd: 740 [id number] Repository [phone] (HP) Date:9150-19-61NB [address] [place] [address]CX: 09/09/2018 Secondary DICKSON L Lea Insurance:MEDICAL JOHNSONDOB: [facility] [id number] Hospital Number: Repository [id number] Date:2877-26-04HZ [address] [address]DB: 09/09/2018 Tertiary NOT GIVENUNK Lea Insurance:SELF PAY [facility] Number: Effective Repository Date:2018-08-23 07/26/2018 COREENA A Primary NORMA A Leslie [id number] TR Insurance:AULTCAREPoli JOHNSONDOB: [address], [place] Number: [id number] Hospital [address]Ecp: (936) [id number] Repository [phone] (HP) Date:8142-90-53SR [facility] [address] [address]AA: 07/26/2018 Secondary DICKSON L Leslie Insurance:MEDICAL JOHNSONDOB: [facility] [id number] Hospital Number: Repository [id number] Date:4598-94-24MR [address] [address]QS: 07/26/2018 Tertiary NOT GIVENUNK Leslie Insurance:SELF PAY [facility] Number: Effective Repository Date:2018-07-26 07/05/2018 COREENA Primary DICKSON HAWKINSDOB: Insurance:MEDICAL JOHNSONDOB: [facility] [id number] [facility] [place] [address], OUTPATIENTPolicy 9 [address], Repository [place] [address]Qji: Number: [place] [id number] (HP) Date:Plan Name: 07/04/2018 COREENA Primary DICKSON Dixon JOHNSONDOB: Insurance:MEDICAL JOHNSONDOB: [facility] [place] [employer] [id number] [facility] [address], OUTPATIENTPolicy 9 [address], Repository [place] [address]Rbw: Number: [place] [id number] (HP) Date:Plan Name: 05/07/2018 NORMA Aguilar Primary Dickson Tate [id number] TR Insurance:MEDICAL JohnsonDOB: [address] [address]Lnq: (740) Number: Repository [phone] () [id number] Date:6741-92-59ZP [address] [address]XC: 05/07/2018 Secondary NOT GIVENUNK Lea Insurance:SELF PAY [facility] Number: Effective Repository Date:2018-05-05 05/07/2018 NORMA A Primary Dickson Tate [id number] TR Insurance:MEDICAL JohnsonDOB: [address] [id number]: (740) Number: Repository [phone] () [id number] Date:0023-47-52WH[place] [address]WP: 05/07/2018 Secondary NOT GIVENUNK Lea Insurance:SELF PAY [facility] Number: Effective Repository Date:2018-05-07 05/03/2018 NORMA Aguilar Primary Dickson Tate [id number] TR Insurance:MEDICAL JohnsonDOB: [address] [id number]: (740) Number: Repository [phone] () [id number] Date:0854-89-97FU [address] [place] [address]AB: 05/03/2018 Secondary NOT GIVENUNK Leslie Insurance:SELF PAY [facility] Number: Effective Repository Date:2018-05-03
== END 2018-09-22 16:05 | disposition home or self-care (01) ==
LOC: ED 14:06
PROVIDERS: Emergency Provider Emergency Medicine; Family Provider Student in an Organized Health Care Education/Training Program; PCP Student in an Organized Health Care Education/Training Program
DX: R10.13 Epigastric pain (principal); R10.11 Right upper quadrant pain; R10.12 Left upper quadrant pain; R11.0 Nausea; K76.89 Other specified diseases of liver; Z90.722 Acquired absence of ovaries, bilateral; Z90.49 Acquired absence of other specified parts of digestive tract; F17.200 Nicotine dependence, unspecified, uncomplicated
CPT/HCPCS: 74177; 80053; 81001; 83690; 84703; 85025; 96361; 96374; 96375; 99284; J7030; Q9967; A4216; J2405

== ENCOUNTER 2019-04-09 21:38 | Emergency (ER) | payer OTHER, SELFPAY ==
[2019-04-09 21:39] VITALS: BP 145/84; PULSE 88; RESP 18; TEMP 36.9; O2SAT 98; BMI 22.9
--- NOTE | 2019-04-09 22:14 | RAD_ITS ---
HISTORY: MT PAIN, NKI COMPARISON: None FINDINGS: # of images incl. paperwork: 3 XR Foot Min 3 Views : No fracture or subluxation. No osseous or soft tissue abnormality. The joint spaces are well-maintained. No radiopaque foreign body is seen. RAD/Foot min 3 Views IMPRESSION: Normal left foot. at 6595 Reported and signed by: Jero Johnson MD Electronically Signed: Jero Johnson MD at 22:45 EDT Tel , Service support ,
--- NOTE | 2019-04-09 22:52 | ED.VISSUMM ---
- ER Visit Summary Date of Service: 04/09/19 Chief Complaint: Left foot pain History of Present Illness: The patient is a 48 F no segment past medical history. No prior problems of the foot. 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 Sent down the back of the fire truck on . Did not have any problems. Last night and today she is noticed pain and swelling in the left foot near the MTP joint of the fourth metatarsal. No prior history of surgery to the foot. No other injuries. Physical Examination: Well-appearing middle-aged female. Vital signs are stable afebrile. HEENT exam unremarkable. Neck nontender. Lungs clear to auscultation. Heart regular rhythm no murmur. Extremities moves all 4. Neurovascular intact. Her left hip knee ankle are unremarkable. Normal the posterior left foot. The distal left foot over the dorsum and the plantar aspect around the distal end of the fourth metatarsal she is tender and swollen. There is no signs of infection. There is no gross bony deformity. She is able to wiggle all of her toes. Has normal cap refill intact sensation. Test Results: X-ray left foot 3 view shows no acute abnormality. Read both by myself and the radiologist. Emergency Department Course and Treatment: Repeat exam no change. Treatment Plan: Discussed at length of the x-rays with the patient and her . This is most likely a left foot contusion it could also be a nondisplaced fracture is not evident on the radiograph at this time. Ice and elevate. Motrin for pain. Postop shoe. If not improving follow-up with podiatry. Disposition: Discharge Impression: Acute left foot pain secondary to contusion This note was generated with mTraks dictation software. It may contain incorrect words, spelling, and punctuation that were not noted in review of the chart prior to signing ED Disposition - Plan for ED Patient: Referrals: Yon Farnsworth DO [Primary Care Provider] -
--- NOTE | 2019-04-09 22:54 | ED.DEP ---
ED Disposition - Plan for ED Patient: Disposition: Home or Assisted Living Instructions: ED Contusion Lower Ext Referrals: Mahendra Boles DPM [STAFF PHYSICIAN] - 1 Week if not improving Additional Instructions: Ice and elevate left foot decrease pain and swelling. Motrin for pain and swelling. Postop shoe. X-ray was read as negative. No obvious fracture at this time. This will be treated as a bruise to the soft tissue. If not improving follow-up with podiatry.
[2019-04-09 23:28] VITALS: RESP 18
== END 2019-04-09 23:29 | disposition home or self-care (01) ==
PROVIDERS: Emergency Provider Emergency Medicine; Family Provider Student in an Organized Health Care Education/Training Program; PCP Student in an Organized Health Care Education/Training Program
DX: S90.32XA Contusion of left foot, initial encounter (principal); M79.672 Pain in left foot; X58.XXXA Exposure to other specified factors, initial encounter; Y93.9 Activity, unspecified; Y92.9 Unspecified place or not applicable; Z72.0 Tobacco use
CPT/HCPCS: 73630; 99284

== ENCOUNTER → 2019-05-19 09:12 | Outpatient (CLI) | payer OTHER, SELFPAY ==
[2019-05-19 12:38] LABS: Vitamin D,25 Hydroxy 33.6 ng/mL (29.95-100.01)
== END ==
PROVIDERS: Family Provider Student in an Organized Health Care Education/Training Program; PCP Student in an Organized Health Care Education/Training Program; Referring Provider Podiatrist; Visit Provider Podiatrist
DX: S92.333A Displaced fracture of third metatarsal bone, unspecified foot, initial encounter for closed fracture (principal); E55.9 Vitamin D deficiency, unspecified
CPT/HCPCS: 36415; 82306

== ENCOUNTER 2019-12-17 14:25 | Emergency (ER) | payer OTHER, SELFPAY ==
[2019-12-17 14:26] VITALS: BP 147/84; PULSE 82; RESP 18; TEMP 36.4; O2SAT 97; BMI 25.0
--- NOTE | 2019-12-17 15:03 | EKG12_ITS ---
Test Reason : DIZZINESS Blood Pressure : / mmHG Vent. Rate : 069 BPM Atrial Rate : 069 BPM P-R Int : 168 ms QRS Dur : 072 ms QT Int : 370 ms P-R-T Axes : 070 043 049 degrees QTc Int : 396 ms Normal sinus rhythm with sinus arrhythmia Normal ECG Confirmed by SIVAN GAY, ANTONINO ([id number]), photographic editor TONI HAYWOOD ([id number]) on 12/19/2019 2:38:43 PM Referred By: KAREN Confirmed By:RAYMOND FINNEGAN MD
--- NOTE | 2019-12-17 15:03 | CT_ITS ---
STUDY: CT BRAIN WITHOUT CONTRAST REASON FOR EXAM: Female, 49 years old. HEADACHE, DIZZY, LIGHTHEADED RADIATION DOSAGE (If Supplied By Facility): CTDIvol = ( 44.99 ) mGy, DLP = ( 796.11 ) mGycm TECHNIQUE: Transaxial CT imaging of the brain was performed without administration of intravenous contrast material. Individualized dose optimization techniques were used for this CT. COMPARISON: No relevant priors. FINDINGS: Normal soft tissue structures. Normal calvarium. Normal size ventricles and extra-axial spaces for the patient''s age. Normal white matter tracts of the cerebral hemispheres. Normal basal ganglia and thalami. Normal brainstem. Normal cerebellum. There is no intracranial hemorrhage. There are no findings of an acute ischemic infarction. Calcification in the posterior third ventricle region likely represents a pineal gland calcifications. No associated mass effect. Normal visualized paranasal sinuses. CT/Brain/Head without Contrast IMPRESSION: No acute intracranial hemorrhage or mass effect. Electronically Signed: Cb Logan MD (Brooks) at 16:07 EST , Service support ,
--- NOTE | 2019-12-17 15:04 | ED.VIS.GEN ---
History of Present Illness Chief Complaint: Dizziness Informant: Patient Onset: Today Narrative: Patient presents secondary to headache and not feeling right. She states she woke this morning with a headache and mild sore throat. Headache was initially in the posterior region and then spread to the temples. Headache is only mild at this time. 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 She states she was unable to eat lunch because she just did not feel well. She felt slightly nauseated. She does report some pain in her forearms and a tingling sensation in her arms. She states she has had chills today only. She has not been ill the last couple of days. 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 She denies any head trauma. - Past Medical History (1) Hypertension Status: Chronic (2) Depression Status: Chronic Past Medical History - Allergies and Home Meds Allergies/Adverse Reactions: Allergies codeine Allergy (Verified 12/17/19 14:32) Hives fentanyl Allergy (Verified 12/17/19 14:32) Shortness of breath Primary Care Physician: Yon Farnsworth DO [Primary Care Provider] - Prior records reviewed: Yes Surgical History: cholecystectomy, tonsillectomy, - - Heart catheter 2006 was normal Smoking Status: Current every day smoker Review of Systems General: Reports: Chills. Denies: Fever Eyes: Denies: Visual changes - bilaterally ENT: Reports: Sore throat. Denies: Bilateral ear pain Cardiovascular: Denies: Chest pain, Palpitations Respiratory: Denies: Dyspnea, Cough Gastrointestinal: Reports: Nausea. Denies: Abdominal pain, Vomiting, Diarrhea Genitourinary: Denies: Dysuria Musculoskeletal: Reports: Extremity Pain. Denies: Neck pain, Back pain Skin: Denies: Rash Neurological: Reports: Numbness Psych: Denies: Depression Allergy: Denies: Uticaria Physical Exam Vital Signs/Narrative: Vital Signs Temp Pulse Resp BP Pulse Ox 12/17/19 14:26 97.6 F L 82 18 147/84 H 97 Inital Vital Signs reviewed: Yes General: Well nourished, Well developed Head: Normocephalic ENT: Moist mucous membranes Neck: Supple Cardiovascular: Regular rate, Regular rhythm Respiratory: No distress, CTA bilaterally Abdomen: Soft, Nontender, Normal bowel sounds Extremities: Nontender Skin: Normal color, No rash Neurological: Alert, Oriented x3, Normal Strength, Normal Sensation Psychological: Normal affect Diagnostic/Tx/Re-eval Impressions Brain CT 12/17/19 15:03 IMPRESSION: No acute intracranial hemorrhage or mass effect. Electronically Signed: Cb Logan MD (Brooks) at 16:07 EST , Service support , 12/17/19 15:03 Brain/Head without Contrast [CT] Stat Laboratory Results 12/17/19 12/17/19 12/17/19 14:50 14:50 14:50 WBC 13.4 H RBC 4.02 L Hgb 13.1 Hct 36.4 L MCV 90.5 MCH 32.6 H MCHC 36.0 RDW Std Deviation 39.4 RDW Coeff of Lauren 11.9 Plt Count 265 MPV 9.1 Immature Gran % (Auto) 0.400 Neut % (Auto) 76.2 H Lymph % (Auto) 14.3 L [place] % (Auto) 7.9 Eos % (Auto) 0.8 Baso % (Auto) 0.4 Absolute Neuts (auto) 10.2 H Absolute Lymphs (auto) 1.92 Nucleated RBC % 0 VBG Carboxyhemoglobin 4.2 H Sodium 140 Potassium 3.5 Chloride 110 H Carbon Dioxide 25.0 Anion Gap 5 BUN 16 Creatinine 0.81 Estim Creat Clear Calc 75.60 Est GFR (MDRD) Af Amer 97 Est GFR (MDRD) Non-Af 80 BUN/Creatinine Ratio 19.8 Glucose 84 Calcium 9.0 Troponin I < 0.015 - EKG Initial EKG Interpretation: Sinus Rhythm - Sinus at 69 with no acute ischemia. - Medical Decision Making Patient received IV fluids and Toradol. On repeat evaluation she does report feeling improved. Work-up is unremarkable at this time. She be discharged home with family. ED Disposition - Plan for ED Patient: Disposition: Home or Assisted Living Diagnosis: Dizziness Instructions: DIZZINESS, Unk Cause Referrals: Yon Farnsworth DO [Primary Care Provider] - 3-5 Days if not improving
[2019-12-17] MEDS: Ketorolac 30 MG/ML Syringe IV (15:20)
[2019-12-17] MEDS: 0.9% Normal Saline 1,000 ML 1000 ML IV (15:20)
[2019-12-17 15:21] VITALS: BP 128/80; PULSE 76; RESP 18; O2SAT 95
[2019-12-17 15:22] LABS: Absolute Lymphocyte Count 1.92 X10^3/uL (0.83-4.51); Absolute Neutrophil Count 10.2 X10^3/uL (2.0-7.7); Basophil# 0.06 X10^3/uL; Basophil% 0.4 % (0-1); Eosinophil# 0.11 X10^3/uL; Eosinophils% 0.8 % (0-5); Hematocrit 36.4 % (37-47); Hemoglobin 13.1 g/dL (12.0-15.0); Lymphocyte # 1.92 X10^3/ul (4.0); Lymphocyte % 14.3 % (19-41); Mean Corpuscular Hgb 32.6 pg (27.0-32.0); Mean Corpuscular Volume 90.5 fL (81-99); Mean Platelet Vol. 9.1 fl (6.2-12.0); Monocyte# 1.06 X10^3/uL; Monocyte% 7.9 % (0-10); NRBC Flagged by Analyzer 0 % (0-5); Neutrophil % 76.2 % (47-70); Platelet Count 265 K/mm3 (150-450); RBC Distribution Width CV 11.9 % (11.6-14.6); RBC Distribution Width SD 39.4 fl (35.1-43.9); Red Blood Count 4.02 M/mm3 (4.2-5.4); White Blood Count 13.4 K/mm3 (4.4-11.0)
[2019-12-17 15:45] LABS: Anion Gap 5 (5-15); BUN 16 mg/dL (7-18); BUN/Creat Ratio 19.8 RATIO (10-20); Chloride 110 mmol/L (98-107); Creatinine, Serum 0.81 mg/dL (0.55-1.02); EST Glomerular Filtration Rate 80 mL/min (>60); Est Glom Filt Rate - Afr Amer 97 mL/min (>60); Glucose 84 mg/dL (74-106); Potassium 3.5 mmol/L (3.5-5.1); Sodium Level 140 mmol/L (136-145)
[2019-12-17 16:05] LABS: Carboxyhemoglobin Frac (CO) 4.2 % (0.0-1.5)
[2019-12-17 16:22] VITALS: TEMP 36.8
[2019-12-17 17:03] VITALS: BP 129/74; PULSE 69; RESP 17; O2SAT 99
== END 2019-12-17 17:05 | disposition home or self-care (01) ==
PROVIDERS: Emergency Provider Emergency Medicine; PCP Student in an Organized Health Care Education/Training Program
DX: R42 Dizziness and giddiness (principal); I10 Essential (primary) hypertension; Z72.0 Tobacco use; Z79.899 Other long term (current) drug therapy; R51 Headache
CPT/HCPCS: 70450; 80048; 82375; 84484; 85025; 93005; 96361; 96374; 99285; J7030; A4216

== ENCOUNTER → 2020-10-24 06:21 | Outpatient (CLI) | payer OTHER, SELFPAY ==
--- NOTE | 2020-10-25 13:10 | STRESSREP_ITS ---
Stress Test Report Date: 10/24/2020 Procedure: Exercise tolerance test/imaging study Indications: Chest pain Consent: Per the patient Procedure: The patient exercised on a Arnol protocol for 7 minutes and 31 seconds achieving a peak heart rate of 151 bpm (88% predicted maximal heart rate) with a peak blood pressure 160/84 mmHg and a peak MET capacity of 9.3 METs. The baseline ECG demonstrated normal sinus rhythm. The peak exercise ECG demonstrated sinus tachycardia with about [address] depressions in the inferior and lateral leads. There are no definite ischemic changes. EKG during recovery revealed no significant ischemic changes [There were no cardiac dysrhythmias pretest, during exercise, or recovery]. The functional capacity was considered normal for age. Patient had shortness of breath and chest tightness at peak exercise. The examination was discontinued secondary to shortness of breath. Impression: 1. Technically adequate (percent predicted maximal heart rate greater than 85%) exercise tolerance test 2. Stress test is negative for exercise-induced EKG changes of ischemia 3. The test test is positive for exercise-induced chest pain 4. Functional capacity is normal for age 5. Nuclear images pending Myocardial perfusion imaging study: Technique: The patient was injected with 11.1 mCi of technetium 99m Cardiolite and subsequently rest SPECT Cardiolite nuclear imaging was obtained in the horizontal long, vertical long, and short axis views. The patient exercised on a Arnol protocol. Please see above for details. The patient was injected with 32.6 mCi of technetium 99m Cardiolite and subsequently stress SPECT Cardiolite nuclear imaging was obtained in the horizontal long, vertical long, and short axis views. A gated Cardiolite study at peak stress was obtained. Interpretation: Rest and stress SPECT Cardiolite nuclear imaging status post realignment, normalization, and attenuation correction, demonstrates normal myocardial radioisotope uptake. The gated Cardiolite study demonstrates no significant regional wall motion abnormalities. The reported LVEF is 63%. Impression: 1. There is no evidence of significant ischemia or infarction. 2. The gated Cardiolite study reports an LVEF of 63%. This note was generated with [employer] software. It may contain incorrect words, spelling, and punctuation that were not noted in checking the note before signing.
== END ==
PROVIDERS: PCP Student in an Organized Health Care Education/Training Program; Referring Provider Registered Nurse; Visit Provider Registered Nurse
DX: R07.9 Chest pain, unspecified (principal)
CPT/HCPCS: 78452; 93017; A9500; A4216

== ENCOUNTER → 2020-12-20 15:20 | Outpatient (CLI) | payer OTHER, SELFPAY ==
--- NOTE | 2020-12-20 11:30 | COLBX_PTH ---
PATIENT: NORMA ROCHA LOC: [facility] U#:[id number] AGE/SX: 55/F ROOM: RE12/20/[address]: Dr. Chip Fierro MD : 1970 BED: DIS: SPEC #: [id number] RECD: 12/20/20 15:10 STATUS: ELIZABET REStefani #: [id number] MARIA ISABEL: 12/20/20 11:[address]: Chip Fierro DEPT: SURGICAL PATHOLOGY RECD BY: Judie Wang ENTERED: 12/21/20 08:21 SP TYPE: COLON BX OTHR DR: Dr. Yon Farnsworth DO Tissues: Cecum, NOS Procedures: Surgery Specimen Level IV HEADER OPERATION: Colonoscopy with snare PRE-OP DIAGNOSIS: History of colon polyps TISSUE SUBMITTED: Cecum polyp (cold snare) MICROSCOPIC DIAGNOSIS Cecum polyp, biopsy: Tubular adenoma. SJ:jacey 12/24/2020 MICROSCOPIC DESCRIPTION Slides are reviewed. GROSS DESCRIPTION Received in fixative is one container labeled with the patient's name and designated cecum polyp. The specimen consists of one irregular fragment of light barbour soft tissue that measures 0.3 x 0.1 x 0.1 cm. The specimen is totally submitted in one cassette. / SJ:jacey 12/21/20 TC:1 CPT: 84195
== END ==
PROVIDERS: PCP Student in an Organized Health Care Education/Training Program; Referring Provider Surgery; Visit Provider Surgery
DX: Z86.010 Personal history of colon polyps (principal)
CPT/HCPCS: 88305

== ENCOUNTER 2021-01-20 21:59 | Emergency (ER) | payer OTHER, SELFPAY ==
[2021-01-20 22:00] VITALS: BP 145/97; PULSE 59; RESP 16; TEMP 36.6; O2SAT 98; BMI 25.5
[2021-01-20] MEDS: Diphth,Pertuss(Acell),Tet Vac 0.5 ML Vial IM (22:21)
[2021-01-20] MEDS: Doxycycline 100 MG CAPSULE 200 MG PO (22:22)
[2021-01-20 22:43] VITALS: PULSE 74; RESP 20
--- NOTE | 2021-01-20 22:43 | ED.VIS.GEN ---
History of Present Illness Chief Complaint: Wound Informant: Patient, Significant Other Onset: Today - noticed tick on left thigh today Timing: Continuous Quality: sore Location: left thigh Current Severity: Mild Maximum Severity: Mild Worsened by: palpation Relieved by: leaving alone Associated Symptoms: none Narrative: Patient noticed an abnormal area on the posterior aspect of her left thigh, when she was able to look at it in the mirror she found out that it was a tick. Her removed it, put it in a bag and brought it with him, but he was not able to remove the last small piece of the head. They are not sure how long it has been there, they said it could have been 3 days or 3 weeks. She has had no systemic symptoms, she has not developed a rash or an abscess. Last tetanus was maybe 20 years ago. - Past Medical History (1) Depression Status: Chronic (2) Hypertension Status: Chronic Past Medical History - Allergies and Home Meds Allergies/Adverse Reactions: Allergies codeine Allergy (Verified 01/20/21 22:02) Hives fentanyl Allergy (Verified 01/20/21 22:02) Shortness of breath Primary Care Physician: Yon Farnsworth DO [Primary Care Provider] - Surgical History: cholecystectomy, tonsillectomy, - - Heart catheter 2006 was normal Lives: Spouse/ Significant Other Smoking Status: Current every day smoker Review of Systems General: Denies: Chills, Fever, Sweats Eyes: Denies: Visual changes - bilaterally, Diplopia ENT: Denies: Rhinorrhea, Sore throat Cardiovascular: Denies: Chest pain, Palpitations Respiratory: Denies: Dyspnea, Cough, Dyspnea on exertion Gastrointestinal: Denies: Abdominal pain, Nausea, Vomiting, Diarrhea, Melena, Hematochezia Genitourinary: Denies: Dysuria, Hematuria, Frequency Musculoskeletal: Reports: Extremity Pain - Occasional pain in left knee with climbing steps. Denies: Myalgias, Arthralgias, Back pain, Swelling Skin: Reports: Wounds. Denies: Rash Neurological: Denies: Headache, Weakness, Numbness Physical Exam Vital Signs/Narrative: Vital Signs Temp Pulse Resp BP Pulse Ox 01/20/21 22:00 97.8 F 59 L 16 145/97 H 98 Inital Vital Signs reviewed: Yes General: Well nourished, Well developed, No Acute Distress - Well-appearing in no distress Head: Normocephalic, Atraumatic Neck: Supple, - - FROM Respiratory: No distress Extremities: Nontender, No edema Skin: Normal color, No rash, - - Small wound posterior mid left thigh with a very small piece of residual tick centrally. No signs of infection, discharge, abscess, bleeding. No surrounding rash.. Negative for: Rash Neurological: Alert, Oriented x3, Cranial nerves II-XII grossly intact, Normal Strength, Normal Sensation, Normal Gait Psychological: Normal affect, Normal Mood Diagnostic/Tx/Re-eval - Medical Decision Making I did look at the parts of the tick that the has been removed, it did not appear to be engorged but was very small and could have been a nymph. The rest of the residual tick was removed. See the procedure note. Her tetanus was updated and she was given doxycycline 200 mg for prophylaxis against Lyme disease. Wound was dressed with bacitracin and she was encouraged to continue monitoring the wound for signs of infection which is very unlikely. Procedures Procedure(s): Foreign body removal left lower extremity --0.25 cc of 0.5% plain bupivacaine was injected after isopropanol prep. Fine forceps were used to bluntly remove the residual piece of the tick head and cement, removing very small pieces of tissue. There is very minor bleeding. The area was cleansed and dressed with bacitracin. Tolerated well no complications. ED Disposition - Plan for ED Patient: Disposition: Home or Assisted Living Diagnosis: Tick bite of left thigh, Tetanus-diphtheria (Td) vaccination Instructions: ED Tick Bite, Abx Tx Referrals: Yon Farnsworth DO [Primary Care Provider] - As Needed
== END 2021-01-20 22:49 | disposition home or self-care (01) ==
LOC: ED 22:49
PROVIDERS: Emergency Provider Emergency Medicine; PCP Student in an Organized Health Care Education/Training Program
DX: M25.562 Pain in left knee (principal); W57.XXXA Bitten or stung by nonvenomous insect and other nonvenomous arthropods, initial encounter; F17.200 Nicotine dependence, unspecified, uncomplicated; I10 Essential (primary) hypertension; Z90.49 Acquired absence of other specified parts of digestive tract
CPT/HCPCS: 90471; 90715; 99283

== ENCOUNTER → 2021-04-30 15:17 | Outpatient (CLI) | payer OTHER, SELFPAY ==
--- NOTE | 2021-04-30 | GASB_PTH ---
PATIENT: NORMA ROCHA LOC: [facility] U#:[id number] AGE/SX: 55/F ROOM: RE04/30/[address]: Dr. Chip Fierro MD : 1970 BED: DIS: SPEC #: [id number] RECD: 04/30/21 15:07 STATUS: ELIZABET RICH #: [id number] MARIA ISABEL: 04/30/21 00:[address]: Chip Fierro DEPT: SURGICAL PATHOLOGY RECD BY: Aftab Ballard ENTERED: 05/01/21 08:55 SP TYPE: Gastric Bx OTHR DR: Dr. Yon Farnsworth DO Tissues: A - Gastric mucous membrane B - Duodenum, NOS C - Gastric mucous membrane D - Esophageal mucous membrane E - Esophageal mucous membrane Procedures: Surgery Specimen Level IV HEADER OPERATION: EGD PRE-OP DIAGNOSIS: Abdominal pain TISSUE SUBMITTED: A - Jejunal biopsy, B - Duodenal biopsy, C - Antral biopsy, D - Distal esophageal biopsy, E - Mid esophageal biopsy MICROSCOPIC DIAGNOSIS A. Jejunum, biopsy: Minimal nonspecific chronic inflammation. B. Duodenum, biopsy: No pathologic change. C. Gastric antrum, biopsy: Mild chronic gastritis. D. Distal esophagus, biopsy: Fragments of benign squamous mucosa. No evidence of inflammation. E. Mid esophagus, biopsy: Fragment of benign squamous mucosa. No evidence of inflammation. AM:jacey 05/02/2021 MICROSCOPIC DESCRIPTION Slides are reviewed. GROSS DESCRIPTION A - Received in fixative is one container labeled with the patient's name and designated jejunal biopsy. The specimen consists of one irregular fragment of light barbour soft tissue that measures 0.3 x 0.3 x 0.1 cm. The specimen is totally submitted in one cassette. B - Received in fixative is one container labeled with the patient's name and designated duodenal biopsy. The specimen consists of one irregular fragment of light barbour soft tissue that measures 0.3 x 0.1 x 0.1 cm. The specimen is totally submitted in one cassette. C - Received in fixative is one container labeled with the patient's name and designated antral biopsy. The specimen consists of one irregular fragment of light barbour soft tissue that measures 0.6 x 0.2 x 0.1 cm. The specimen is totally submitted in one cassette. D - Received in fixative is one container labeled with the patient's name and designated distal esophagus biopsy. The specimen consists of one irregular fragment of light barbour soft tissue that measures 0.6 x 0.3 x <0.1 cm. The specimen is totally submitted in one cassette. E - Received in fixative is one container labeled with the patient's name and designated mid esophagus biopsy. The specimen consists of one irregular fragment of light barbour soft tissue that measures 0.2 x 0.2 x <0.1 cm. The specimen is totally submitted in one cassette. / AM:jacey 05/01/21 TC:3 CPT: 87719 x5
== END ==
PROVIDERS: PCP Student in an Organized Health Care Education/Training Program; Referring Provider Surgery; Visit Provider Surgery
DX: R10.9 Unspecified abdominal pain (principal)
CPT/HCPCS: 88305

== ENCOUNTER 2022-01-01 16:55 | Emergency (ER) | payer OTHER, SELFPAY ==
[2022-01-01 16:56] VITALS: BP 172/86; PULSE 72; RESP 15; TEMP 36.7; O2SAT 96; BMI 25.8
--- NOTE | 2022-01-01 17:11 | EDS_ITS ---
HPI History of Present Illness Chief Complaint: Hypertension Informant: patient Onset/Context/Timing Onset: Weeks Narrative Narrative: Patient present secondary to hypertension. She reports increasing blood pressure recently had been on losartan 8 months ago. She had a virtual visit with her primary care physician last week and she was restarted on losartan and given hydralazine to take as needed if her blood pressure is over 150/90. Patient has been taking the losartan regularly. Her blood pressure has remained elevated. Today she developed a headache and had the school nurse check her blood pressure and was noted to be 180 systolic. She took a dose of her hydralazine at that time. She developed headache and warm flushed sensation with mild palpitations. She is not sure if it is related to the medication or from her blood pressure. Headache is improving at this time but not completely resolved. [facility] Medical History Depression Hypertension Home Medications losartan 100 mg PO DAILY 01/20/21 [History Last Taken 01/01/22] hydralazine 25 mg PO TID PRN 01/01/22 [History Last Taken 01/01/22 13:00] Allergy/AdvReac Type Severity Reaction Status Date / Time codeine Allergy Hives Verified 01/01/22 16:58 fentanyl Allergy Shortness Verified 01/01/22 16:58 of breath Social History Smoking Status: Current every day smoker tobacco type: cigarettes ROS ROS ED Constitutional Constitutional ED: Denies chills or fever(s) Eyes Eyes: Denies change in vision ENT ENT ED: Denies sore throat Cardiovascular Cardiovascular: Reports palpitations; Denies chest pain Respiratory/Chest Respiratory/Chest: Denies cough or dyspnea Gastrointestinal Gastrointestinal: Denies abdominal pain, nausea or vomiting Genitourinary Genitourinary ED: Denies dysuria Musculoskeletal Musculoskeletal: Denies back pain or neck pain Integumentary Denies rash Neurologic Neurologic: Reports headache(s); Denies paresthesias or weakness Allergic/Immunologic Allergic/Immunologic ED: Denies urticaria EXAM Physical Exam Const Vital Signs: 01/01/22 16:56 01/01/22 17:17 01/01/22 18:12 Temperature 98.1 F Temperature Source Temporal Pulse Rate 72 70 Respiratory Rate 15 17 Respiratory Effort Normal Non-Labored Respiratory Pattern Normal Blood Pressure 172/86 H 129/76 H Blood Pressure Mean 114 93 Pulse Ox 96 98 Oxygen Delivery Method Room Air Room Air 01/01/22 19:00 Temperature Temperature Source Pulse Rate Respiratory Rate 17 Respiratory Effort Respiratory Pattern Blood Pressure Blood Pressure Mean Pulse Ox Oxygen Delivery Method Room Air Positive well nourished and well developed General Appearance ED: well developed HEENT Reports moist mucous membranes Eyes PERRL and EOMs intact bilaterally Neck supple Chest Wall inspection of chest normal and palpation of chest normal Resp normal respiratory effort and clear to auscultation bilaterally Cardio regular rate and regular rhythm GI normal to inspection, nondistended, normoactive bowel sounds and non-tender Palpation: soft Extremity normal to inspection Neuro oriented x3 and no sensory deficits noted Sensorium / Orientation: alert Motor Exam: strength 5/5 throughout Psych mental status grossly normal Skin no rashes or lesions noted MDM MDM MDM Narrative Medical decision making narrative: Patient placed on glass inspector. EKG, lab work, urinalysis obtained. Lab Data Attestation: I reviewed the patient's lab results. Labs: Laboratory Results - last 24 hr 01/01/22 01/01/22 01/01/22 17:15 17:15 18:40 WBC 9.5 RBC 4.67 Hgb 15.2 H Hct 42.5 MCV 91.0 MCH 32.5 H MCHC 35.8 RDW Std Deviation 41.2 RDW Coeff of Lauren 12.4 Plt Count 342 MPV 9.5 Immature Gran % (Auto) 0.500 Neut % (Auto) 57.7 Lymph % (Auto) 31.5 [place] % (Auto) 7.2 Eos % (Auto) 2.4 Baso % (Auto) 0.7 Absolute Neuts (auto) 5.5 Absolute Lymphs (auto) 3.00 Nucleated RBC % 0 Sodium 142 Potassium 3.7 Chloride 111 H Carbon Dioxide 25.0 Anion Gap 6 BUN 14 Creatinine 0.77 Estim Creat Clear Calc 80.92 Est GFR (MDRD) Af Amer 102 Est GFR (MDRD) Non-Af 84 BUN/Creatinine Ratio 18.2 Glucose 122 H Calcium 9.0 Urine Color Yellow Urine Clarity Clear Urine pH 8.0 Ur Specific [place] 1.015 Urine Protein Negative Urine Glucose (UA) Normal Urine Ketones Negative Urine Occult Blood Negative Urine Nitrite Negative Urine Bilirubin Negative Urine Urobilinogen 1 H Ur Leukocyte Esterase Negative Urine RBC 0 SEEN Urine WBC 0 SEEN Ur Squamous Epith Cells 0-5 SEEN Urine Bacteria 0 SEEN Urine Mucus 0 SEEN EKG Initial EKG: Attestation: I personally reviewed and interpreted this EKG as follows: Interpretation: Sinus Rhythm and Sinus Bradycardia (Sinus bradycardia 57 bpm. No acute ischemia.) Treatment and Re-Evaluation Narrative: Patient's blood pressure has improved to the 120-140 range systolic while in the emergency room. She was not given any additional medication here. EKG and lab work unremarkable. Patient will continue her current regimen at home. Discharge Plan Triage Chief Complaint: Hypertension ED Provider: Emily Bass Dx/Rx/DC Orders Clinical Impression: Hypertension Instructions: ED High Blood Pressure Hypertension Prescriptions: No Action losartan 100 MG tablet 100 mg PO DAILY RF: 0 hydralazine 25 mg tablet 25 mg PO TID PRN (Reason: Hypotension) RF: 0 Primary Care Provider: Yon Farnsworth Referrals: Yon Farnsworth DO [Primary Care Provider] - 1-2 Weeks Disposition Disposition: Home, Self Care
--- NOTE | 2022-01-01 18:09 | EKG12_ITS ---
Test Reason : DYSRHYTHMIA Blood Pressure : / mmHG Vent. Rate : 057 BPM Atrial Rate : 057 BPM P-R Int : 150 ms QRS Dur : 082 ms QT Int : 416 ms P-R-T Axes : 038 017 042 degrees QTc Int : 404 ms Sinus bradycardia Otherwise normal ECG Confirmed by TATO GAY, KALIE ([id number]), newspaper editor managing TONI HAYWOOD ([id number]) on 01/02/2022 10:29:06 AM Referred By: KAREN Confirmed By:KALIE GODWIN MD
[2022-01-01 18:12] VITALS: BP 129/76; PULSE 70; RESP 17; O2SAT 98
[2022-01-01 18:21] LABS: Absolute Neutrophil Count 5.5 X10^3/uL (2.0-7.7); Basophil# 0.07 X10^3/uL; Basophil% 0.7 % (0-1); Eosinophil# 0.23 X10^3/uL; Eosinophils% 2.4 % (0-5); Hematocrit 42.5 % (37-47); Hemoglobin 15.2 g/dL (12.0-15.0); Lymphocyte % 31.5 % (19-41); Mean Corp Hgb Conc 35.8 g/dL (32-36); Mean Corpuscular Hgb 32.5 pg (27.0-32.0); Mean Platelet Vol. 9.5 fl (6.2-12.0); Monocyte# 0.68 X10^3/uL; Monocyte% 7.2 % (0-10); NRBC Flagged by Analyzer 0 % (0-5); Neutrophil # 5.48 X10^3/uL (2.7-7.7); Neutrophil % 57.7 % (47-70); Platelet Count 342 K/mm3 (150-450); RBC Distribution Width CV 12.4 % (11.6-14.6); RBC Distribution Width SD 41.2 fl (35.1-43.9); Red Blood Count 4.67 M/mm3 (4.2-5.4); White Blood Count 9.5 K/mm3 (4.4-11.0)
[2022-01-01 18:28] LABS: Anion Gap 6 (5-15); BUN 14 mg/dL (7-18); BUN/Creat Ratio 18.2 RATIO (10-20); Chloride 111 mmol/L (98-107); Creatinine, Serum 0.77 mg/dL (0.55-1.02); EST Glomerular Filtration Rate 84 mL/min (>60); Est Glom Filt Rate - Afr Amer 102 mL/min (>60); Estimated Creatinine Clearance 80.92 ml/min; Glucose 122 mg/dL (74-106); Potassium 3.7 mmol/L (3.5-5.1); Sodium Level 142 mmol/L (136-145)
[2022-01-01 18:57] LABS: Bacteria 0 SEEN /hpf (None Seen); Mucous, Urine 0 SEEN /hpf (<or=2+); Red Blood Cells-Urine 0 SEEN /hpf (0-5); White Blood Cells 0 SEEN /hpf (0-5)
[2022-01-01 18:59] LABS: Glucose, Dipstick Normal (Normal); Ketone-Dipstick Negative (Negative); Leukocyte Esterase-Dipstick Negative /ul (Negative); Nitrite-Dipstick Negative (Negative); Occult Blood-Urine Negative /ul (Negative); Protein-Dipstick Negative (Negative); Specific Gravity, Urine 1.015 (1.002-1.030); Urine Bilirubin Dipstick Negative (Negative); Urine Urobilinogen 1 mg/dl (Normal)
[2022-01-01 19:00] VITALS: RESP 17
[2022-01-01 19:05] LABS: Color, Urine Yellow (Yellow); Urine Clarity Clear (Clear)
[2022-01-01 19:07] LABS: Squamous Epithelial Cells - UA 0-5 SEEN /hpf (5-10)
[2022-01-01 20:15] VITALS: BP 131/83; PULSE 65; RESP 21; O2SAT 95
== END 2022-01-01 20:16 | disposition home or self-care (01) ==
PROVIDERS: Emergency Provider Emergency Medicine; PCP Student in an Organized Health Care Education/Training Program; Visit Provider Emergency Medicine
DX: I10 Essential (primary) hypertension (principal); F17.210 Nicotine dependence, cigarettes, uncomplicated; Z79.899 Other long term (current) drug therapy
CPT/HCPCS: 80048; 81001; 85025; 93005; 99284; A4216

== ENCOUNTER 2024-02-11 00:36 | Emergency (ER) | payer OTHER, SELFPAY ==
[2024-02-11 00:36] VITALS: BP 143/75; PULSE 66; RESP 20; TEMP 36.5; O2SAT 100; BMI 23.2
[2024-02-11] MEDS: 0.9% Normal Saline (1000mL) 1,000 ML 999 ML IV (01:02)
[2024-02-11 01:06] LABS: Absolute Lymphocyte Count 3.66 X10^3/uL (0.83-4.51); Basophil# 0.06 X10^3/uL; Basophil% 0.4 % (0-1); Eosinophil# 0.16 X10^3/uL; Eosinophils% 1.1 % (0-5); Hematocrit 43.8 % (37-47); Hemoglobin 15.4 g/dL (12.0-15.0); Lymphocyte # 3.66 X10^3/ul (0.83-4.51); Lymphocyte % 24.9 % (19-41); Mean Corp Hgb Conc 35.2 g/dL (32-36); Mean Corpuscular Hgb 32.3 pg (27.0-32.0); Mean Corpuscular Volume 91.8 fL (81-99); Mean Platelet Vol. 9.8 fl (6.2-12.0); Monocyte# 0.75 X10^3/uL; Monocyte% 5.1 % (0-10); NRBC Flagged by Analyzer 0 % (0-5); Neutrophil # 9.97 X10^3/uL (2.7-7.7); Neutrophil % 67.9 % (47-70); Platelet Count 356 K/mm3 (150-450); RBC Distribution Width CV 12.5 % (11.6-14.6); RBC Distribution Width SD 42.2 fl (35.1-43.9); Red Blood Count 4.77 M/mm3 (4.2-5.4); White Blood Count 14.7 K/mm3 (4.4-11.0)
--- NOTE | 2024-02-11 01:24 | EDS_ITS ---
HPI History of Present Illness Chief Complaint: Abd Pain Informant: patient, spouse/S.O. and EMS Narrative Narrative: Patient is a 53-year-old female with past medical history of hypertension and previous cholecystectomy. She states that she recently started doing the keto diet. She states she has not been eating much and this evening she was relaxing getting ready for bed when she developed sudden onset upper mid abdominal pain that led to nausea without vomiting and about a loose stool/diarrhea. She states that the symptoms persisted for approximately 1 hour but have since spontaneously resolved. She denies any recent trauma or excessive activity and she denies any known sick contacts. However because of the sudden onset of symptoms there was concern this could be potential cardiac or infectious and therefore she comes in for evaluation [facility] Medical History Depression Hypertension Home Medications losartan 100 mg tablet 100 mg PO DAILY 01/20/21 [History Last Taken 01/01/22] hydralazine 25 mg tablet 25 mg PO TID PRN Hypotension 01/01/22 [History Last T aken 01/01/22 13:00] dicyclomine 20 mg tablet 20 mg PO 4X/DAY PRN abdominal pain/spasm #28 tabs 02/11/24 [Rx Last Taken Unknown] ondansetron 4 mg disintegrating tablet 4 mg PO TID PRN nausea and vomiting #21 tabs 02/11/24 [Rx Last Taken Unknown] Allergy/AdvReac Type Severity Reaction Status Date / Time codeine Allergy Hives Verified 02/11/24 00:44 fentanyl Allergy Shortness Verified 02/11/24 00:44 of breath Social History Smoking Status: Current every day smoker tobacco type: cigarettes ROS ROS ED Constitutional Constitutional ED: Denies chills or fever(s) Eyes Eyes: Denies change in vision ENT ENT ED: Denies sore throat Cardiovascular Cardiovascular: Denies chest pain, palpitations or racing heartbeat Respiratory/Chest Respiratory/Chest: Denies cough or dyspnea Gastrointestinal Gastrointestinal: Reports abdominal pain, diarrhea and nausea; Denies vomiting Genitourinary Genitourinary ED: Denies dysuria Musculoskeletal Musculoskeletal: Denies myalgias Integumentary Denies rash Neurologic Neurologic: Denies headache(s) Hematologic/Lymphatic Hematologic/Lymphatic: Denies easy bleeding or easy bruising EXAM Physical Exam Const Vital Signs: 02/11/24 00:36 Temperature 97.7 F L Temperature Source Oral Pulse Rate 66 Respiratory Rate 20 H Blood Pressure 143/75 H Blood Pressure Mean 97 Pulse Ox 100 Oxygen Delivery Method Room Air Positive well nourished and well developed General Appearance ED: well developed; Negative for pallor HEENT Reports moist mucous membranes HEENT Narrative: No signs of infection noted in the posterior pharynx Eyes PERRL and EOMs intact bilaterally General Eye ED: Negative for scleral icterus Neck supple Neck Narrative: No nuchal rigidity or meningeal signs Chest Wall palpation of chest normal Resp normal respiratory effort and clear to auscultation bilaterally Cardio regular rate and regular rhythm Rate: other Other Details: Heart is regular rate and rhythm without murmurs rubs or gallops Radial and carotid pulses are equal and symmetric GI non-distended and no masses GI Narrative: Abdomen is soft and nondistended with normal active bowel sounds. There is mild pain with palpation in the midepigastric region without voluntary guarding or rigidity No pulsatile mass or fluid wave No hernia palpated Auscultation: normoactive bowel sounds Palpation: soft Back/Spine no CVA tenderness Extremity normal to inspection Extremity Narrative: No asymmetric edema no pitting edema negative Homans' sign bilaterally Neuro oriented x3, CN's II-XII intact bilaterally and no sensory deficits noted Sensorium / Orientation: alert Motor Exam: strength 5/5 throughout Psych mental status grossly normal Skin no rashes or lesions noted, no wounds and skin turgor normal General Skin Exam: Negative for jaundice or pallor MDM MDM MDM Narrative Medical decision making narrative: Patient arrived to the ER with stable vitals and reported spontaneous imp rovement/resolution of symptoms. With sudden onset of pain in the midepigastric region with nausea and loose stool diarrhea differential diagnosis is for pancreatitis versus viral stomach infection such as Hettinger or rotavirus versus colitis versus acute coronary syndrome. Basic blood work was obtained and shows leukocytosis at 14.7 but otherwise no clinically significant findings. The patient had spontaneous resolution of symptoms upon arrival her abdomen is soft and nonsurgical on initial and repeat examination and therefore I feel this is most likely stress response and do not feel the need to provide a CT scan of the abdomen pelvis at this time. Patient will be placed on Zofran and Bentyl for symptom control. His workup does not indicate an acute coronary syndrome or pancreatitis or potential intestinal obstruction or perforation I do not feel there is need for further treatment in the ER and she is otherwise safe for discharge History & Record Review Discussion w/independent historian: Patient and Significant other Lab Data Attestation: I reviewed the patient's lab results. Labs: Laboratory Results - last 24 hr 02/11/24 02/11/24 00:39 01:19 WBC 14.7 H RBC 4.77 Hgb 15.4 H Hct 43.8 MCV 91.8 MCH 32.3 H MCHC 35.2 RDW Std Deviation 42.2 RDW Coeff of Lauren 12.5 Plt Count 356 MPV 9.8 Immature Gran % (Auto) 0.600 Neut % (Auto) 67.9 Lymph % (Auto) 24.9 [place] % (Auto) 5.1 Eos % (Auto) 1.1 Baso % (Auto) 0.4 Absolute Neuts (auto) 10.0 H Absolute Lymphs (auto) 3.66 Nucleated RBC % 0 Sodium Cancelled 143 Potassium Cancelled 3.2 L Chloride Cancelled 113 H Carbon Dioxide Cancelled 25.0 Anion Gap Cancelled 5 BUN Cancelled 17 Creatinine Cancelled 0.72 Estim Creat Clear Calc Cancelled 84.59 Est GFR (MDRD) Af Amer Cancelled 110 Est GFR (MDRD) Non-Af Cancelled 91 BUN/Creatinine Ratio Cancelled 23.8 H Glucose Cancelled 96 Calcium Cancelled 8.7 Total Bilirubin Cancelled 0.60 Direct Bilirubin Cancelled 0.19 AST Cancelled 10 L ALT Cancelled 11 L Alkaline Phosphatase Cancelled 89 Troponin I High Sens Cancelled 6 Total Protein Cancelled 7.0 Albumin Cancelled 3.7 Globulin Cancelled 3.3 Lipase Cancelled 22 Discharge Plan Triage Chief Complaint: Abd Pain ED Provider: Winston Deutsch Dx/Rx/DC Orders Clinical Impression: Nonspecific abdominal pain, Diarrhea, Nausea Instructions: Abdominal Pain, ED Gastroenteritis, Viral (Adult) Prescriptions: New ondansetron 4 mg tablet,disintegrating 4 mg PO TID PRN (Reason: nausea and vomiting) Qty: 21 0RF dicyclomine 20 mg tablet 20 mg PO 4X/DAY PRN (Reason: abdominal pain/spasm) Qty: 28 0RF No Action losartan 100 MG tablet 100 mg PO DAILY Patient Comments: TAKE 1 TABLET BY MOUTH EVERY DAY hydralazine 25 mg tablet 25 mg PO TID PRN (Reason: Hypotension) Patient Comments: TAKE 1 TABLET BY MOUTH THREE TIMES DAILY NEEDED FOR ELEVATED BLOOD PRESSURE >150/90 Stand Alone Forms: ED Work / School Excuse Primary Care Provider: Yon Farnsworth Referrals: Yon Farnsworth, [Primary Care Provider] - Disposition Disposition: Home, Self Care
[2024-02-11 01:51] LABS: AST(SGOT) 10 U/L (15-37); Alanine Aminotransfer ALT/SGPT 11 U/L (13-56); Albumin, Serum 3.7 g/dL (3.2-5.0); Alkaline Phosphatase 89 U/L (45-117); Anion Gap 5 (5-15); BUN 17 mg/dL (7-18); BUN/Creat Ratio 23.8 RATIO (10-20); Bilirubin, Direct 0.19 mg/dL (0.00-0.30); Calcium,Total 8.7 mg/dL (8.5-10.1); Chloride 113 mmol/L (98-107); Creatinine, Serum 0.72 mg/dL (0.55-1.02); EST Glomerular Filtration Rate 91 mL/min (>60); Est Glom Filt Rate - Afr Amer 110 mL/min (>60); Estimated Creatinine Clearance 84.59 ml/min; Globulin 3.3 g/dL (2.2-4.2); Glucose 96 mg/dL (74-106); Lipase 22 U/L (13-75); Potassium 3.2 mmol/L (3.5-5.1); Sodium Level 143 mmol/L (136-145); Troponin-I HS 6 pg/mL (3.0-54.0)
[2024-02-11 02:36] VITALS: BP 130/76; PULSE 85; RESP 16; O2SAT 97
[2024-02-11] MEDS: Ondansetron 4 MG/2 ML Vial IV (02:51)
[2024-02-11] MEDS: Dicyclomine 10 MG Capsule 20 MG PO (02:55)
[2024-02-11 02:56] VITALS: BP 124/76; PULSE 74; RESP 16; TEMP 36.6; O2SAT 97
== END 2024-02-11 03:03 | disposition home or self-care (01) ==
PROVIDERS: Emergency Provider Emergency Medicine; PCP Student in an Organized Health Care Education/Training Program; Visit Provider Emergency Medicine
DX: R10.9 Unspecified abdominal pain (principal); R19.7 Diarrhea, unspecified; R11.0 Nausea; F17.210 Nicotine dependence, cigarettes, uncomplicated
CPT/HCPCS: 80048; 80076; 83690; 84484; 85025; 93005; 96361; 96374; 99284; A4216; J2405

== ENCOUNTER 2024-11-21 20:00 | Emergency (ER) | payer OTHER, SELFPAY ==
[2024-11-21 20:01] VITALS: BP 189/97; PULSE 76; RESP 16; TEMP 36.9; O2SAT 100; BMI 23.6
--- NOTE | 2024-11-21 20:03 | EKG12_ITS ---
Test Reason : CP Blood Pressure : */* mmHG Vent. Rate : 64 BPM Atrial Rate : 64 BPM P-R Int : 126 ms QRS Dur : 88 ms QT Int : 378 ms P-R-T Axes : 40 15 59 degrees QTcB Int : 389 ms Normal sinus rhythm Normal ECG Confirmed by SIVAN GAY, ANTONINO ([id number]), editor news TONI HAYWOOD ([id number]) on 11/23/2024 6:26:52 AM Referred By: TL Confirmed By: ANTONINO FINNEGAN MD
--- NOTE | 2024-11-21 20:28 | RAD_ITS ---
EXAM: XR CHEST, 1 VIEW CLINICAL INDICATION: chest pain TECHNIQUE: Frontal view of the chest. COMPARISON: 07/26/2018 FINDINGS: LUNGS AND PLEURAL SPACES: Unremarkable. No consolidation or edema. No pneumothorax. No effusion. HEART: Unremarkable. Cardiac silhouette not enlarged. MEDIASTINUM: Central airways and mediastinal contour are unremarkable. BONES/JOINTS: Unremarkable. No acute fracture. SOFT TISSUES: Unremarkable. RAD/Chest 1 View (Portable) IMPRESSION: No radiographic evidence of acute cardiopulmonary disease. Electronically Signed: Edgard Doherty MD at 20:45 EST ,
[2024-11-21 20:40] LABS: Absolute Lymphocyte Count 2.79 X10^3/uL (0.83-4.51); Absolute Neutrophil Count 5.6 X10^3/uL (2.0-7.7); Eosinophil# 0.32 X10^3/uL; Eosinophils% 3.3 % (0-5); Hematocrit 40.7 % (37-47); Hemoglobin 14.2 g/dL (12.0-15.0); Lymphocyte # 2.79 X10^3/ul (0.83-4.51); Lymphocyte % 28.7 % (19-41); Mean Corp Hgb Conc 34.9 g/dL (32-36); Mean Corpuscular Hgb 32.1 pg (27.0-32.0); Mean Corpuscular Volume 92.1 fL (81-99); Mean Platelet Vol. 8.7 fl (6.2-12.0); Monocyte# 0.84 X10^3/uL; Monocyte% 8.6 % (0-10); NRBC Flagged by Analyzer 0 % (0-5); Neutrophil # 5.63 X10^3/uL (2.7-7.7); Neutrophil % 57.9 % (47-70); Platelet Count 325 K/mm3 (150-450); RBC Distribution Width CV 12.6 % (11.6-14.6); RBC Distribution Width SD 42.6 fl (35.1-43.9); Red Blood Count 4.42 M/mm3 (4.2-5.4); White Blood Count 9.7 K/mm3 (4.4-11.0)
[2024-11-21 21:03] LABS: Anion Gap 5 (5-15); BUN 17 mg/dL (7-18); BUN/Creat Ratio 21.4 RATIO (10-20); Calcium,Total 9.5 mg/dL (8.5-10.1); Chloride 111 mmol/L (98-107); Creatinine, Serum 0.79 mg/dL (0.55-1.02); EST Glomerular Filtration Rate 80 mL/min (>60); Est Glom Filt Rate - Afr Amer 97 mL/min (>60); Estimated Creatinine Clearance 76.21 ml/min; Glucose 90 mg/dL (74-106); Potassium 3.6 mmol/L (3.5-5.1); Sodium Level 141 mmol/L (136-145); Troponin-I HS (w/2H Reflex) 8 pg/mL (3.0-54.0)
[2024-11-21 21:08] VITALS: BP 168/73; PULSE 65; RESP 18; O2SAT 97
[2024-11-21 21:30] VITALS: BP 167/86; PULSE 60; RESP 14; O2SAT 98
[2024-11-21 21:45] VITALS: BP 160/79; PULSE 59; RESP 17; O2SAT 98
[2024-11-21 22:00] VITALS: BP 170/73; PULSE 65; RESP 21; O2SAT 98
[2024-11-21 22:23] VITALS: BP 169/70; PULSE 78; RESP 18; TEMP 36.7; O2SAT 100
--- NOTE | 2024-11-21 22:23 | EDS_ITS ---
HPI History of Present Illness Chief Complaint: Chest Pain Narrative Narrative: History of palpitation with PACs. Presents sudden onset palpitations chest discomfort left arm pain 2 hours prior to arrival. No recent cough. No neck or jaw pain. No cardiac history. History of hypertension on medications. Denies diabetes or hyperlipidemia. History of tobacco. Denies recent travel or surgeries. No history of PE or DVT. Prior Similar Symptoms: No CVD Risk Factors: Positive for Hypertension and Smoking; Negative for Diabetes, Hypercholesterolemia or Family History 1' </=55 PE Risk Factors: Negative for Recent Travel/Surgery, Recent Immobilization or Prior DVT or PE [facility] Medical History Depression Hypertension Home Medications ?Medication ?Instructions ?Recorded ?Last Taken ?Type losartan 100 mg tablet 100 mg PO DAILY 01/20/21 01/01/22 History hydralazine 25 mg tablet 25 mg PO TID PRN Hypotension 01/01/22 01/01/22 13:00 History dicyclomine 20 mg tablet 20 mg PO 4X/DAY PRN abdominal 02/11/24 Unknown Rx pain/spasm #28 tabs ondansetron 4 mg disintegrating 4 mg PO TID PRN nausea and 02/11/24 Unknown Rx tablet vomiting #21 tabs bupropion HCl 75 mg tablet 75 mg PO DAILY 11/21/24 Unknown History Allergy/AdvReac Type Severity Reaction Status Date / Time codeine Allergy Hives Verified 11/21/24 20:03 fentanyl Allergy Shortness Verified 11/21/24 20:03 of breath Surgical History History of salpingectomy Social History Smoking Status: Current every day smoker tobacco type: cigarettes ROS ROS ED Constitutional Constitutional ED: Denies chills, fever(s) or sweats ENT ENT ED: Denies sore throat Cardiovascular Cardiovascular: Reports chest pain and palpitations; Denies leg edema or racing heartbeat Respiratory/Chest Respiratory/Chest: Denies cough, dyspnea or dyspnea on exertion Gastrointestinal Gastrointestinal: Denies abdominal pain, diarrhea, nausea or vomiting Genitourinary Genitourinary ED: Denies dysuria, hematuria or urinary frequency Musculoskeletal Musculoskeletal: Denies back pain, extremity pain or neck pain Integumentary Denies rash or wounds Neurologic Neurologic: Denies headache(s), paresthesias or weakness EXAM Physical Exam Const Vital Signs: 11/21/24 20:01 11/21/24 20:45 11/21/24 20:45 Temperature 98.4 F Temperature Source Oral Pulse Rate 76 Respiratory Rate 16 Respiratory Effort Normal Blood Pressure 189/97 H Blood Pressure Mean 127 Pulse Ox 100 Oxygen Delivery Method Room Air Room Air 11/21/24 21:08 11/21/24 21:30 11/21/24 21:45 Temperature Temperature Source Pulse Rate 65 60 59 L Respiratory Rate 18 14 17 Respiratory Effort Blood Pressure 168/73 H 167/86 H 160/79 H Blood Pressure Mean 104 109 103 Pulse Ox 97 98 98 Oxygen Delivery Method Room Air 11/21/24 22:00 11/21/24 22:23 Temperature 98.0 F Temperature Source Pulse Rate 65 78 Respiratory Rate 21 H 18 Respiratory Effort Blood Pressure 170/73 H 169/70 H Blood Pressure Mean 101 103 Pulse Ox 98 100 Oxygen Delivery Method Positive well nourished and well developed General Appearance ED: well developed and NAD HEENT Reports moist mucous membranes normocephalic and atraumatic Eyes General Eye ED: Yes normal appearance of both eyes Neck full ROM Chest Wall Chest: Negative for tenderness Resp normal respiratory effort and normal air movement Effort and Inspection: symmetric chest movement; Negative for respiratory distress Cardio regular rate, regular rhythm and no murmurs Peripheral Pulses: pulses 2+ throughout GI normal to inspection, nondistended, normoactive bowel sounds and non-tender Palpation: Negative for guarding or rebound tenderness present Extremity normal to inspection General Extremety ED: Negative for edema or tenderness General Extremity: Negative for edema Neuro oriented x3 and no sensory deficits noted Sensorium / Orientation: awake and alert Skin no rashes or lesions noted and no wounds Heart Score History: Slightly/Non-Suspicious ECG: Normal Age: >45 - <65 years Risk Factors: 1 or 2 Risk Factors Troponin: </= Normal Limit Score: 2 MDM MDM MDM Narrative Medical decision making narrative: Interventions / MDM: Differential diagnosis: Chest pain, elevated blood pressure Diagnosis considered but do not suspect: Pneumothorax however chest x-ray negative. No clinical hypertensive emergency My EKG interpretation: Sinus rhythm 64, no ST or T wave changes. Imaging independently reviewed and interpreted by myself: 1 view chest x-ray: No acute process. Also read by radiology. External documents reviewed: N/A Test considered but not ordered:N/A ED course: Presenting chest pain subsiding. EKG no acute findings. Cardiac workup initiated. Chest x-ray negative labs stable initial troponin negative. Plan is for delta troponin. Patient was symptom-free. She requested being discharged with outpatient follow-up. Shared decision made with patient and spouse in the room. They will follow-up as an outpatient with strict return precautions. All questions were answered. Re-evaluation: stable Disposition discussed with patient/family/significant other: Patient and significant other Case discussed with consulting clinician: N/A This note was generated with [employer] dictation software. It may contain incorrect words, spelling, and punctuation that were not noted in checking the note before signing. Lab Data Attestation: I reviewed the patient's lab results. Labs: Laboratory Results - last 24 hr 11/21/24 20:25 WBC 9.7 RBC 4.42 Hgb 14.2 Hct 40.7 MCV 92.1 MCH 32.1 H MCHC 34.9 RDW Std Deviation 42.6 RDW Coeff of Lauren 12.6 Plt Count 325 MPV 8.7 Immature Gran % (Auto) 0.500 Neut % (Auto) 57.9 Lymph % (Auto) 28.7 [place] % (Auto) 8.6 Eos % (Auto) 3.3 Baso % (Auto) 1.0 Absolute Neuts (auto) 5.6 Absolute Lymphs (auto) 2.79 Nucleated RBC % 0 Sodium 141 Potassium 3.6 Chloride 111 H Carbon Dioxide 25.0 Anion Gap 5 BUN 17 Creatinine 0.79 Estim Creat Clear Calc 76.21 Est GFR (MDRD) Af Amer 97 Est GFR (MDRD) Non-Af 80 BUN/Creatinine Ratio 21.4 H Glucose 90 Calcium 9.5 Troponin I High Sens 8 Radiography Diagnostic Testing: Clinical Impression(s) from Imaging Studies Chest X-Ray 11/21/24 20:28 IMPRESSION: No radiographic evidence of acute cardiopulmonary disease. Electronically Signed: Edgard Doherty MD at 20:45 EST , Discharge Plan Triage Chief Complaint: Chest Pain ED Provider: Galo Farrell Dx/Rx/DC Orders Clinical Impression: Chest pain, Palpitations Instructions: ED Chest Pain, Uncertain Cause, ED Palpitations Prescriptions: No Action losartan 100 MG tablet 100 mg PO DAILY Patient Comments: TAKE 1 TABLET BY MOUTH EVERY DAY hydralazine 25 mg tablet 25 mg PO TID PRN (Reason: Hypotension) Patient Comments: TAKE 1 TABLET BY MOUTH THREE TIMES DAILY NEEDED FOR ELEVATED BLOOD PRESSURE >150/90 ondansetron 4 mg tablet,disintegrating 4 mg PO TID PRN (Reason: nausea and vomiting) Qty: 21 0RF dicyclomine 20 mg tablet 20 mg PO 4X/DAY PRN (Reason: abdominal pain/spasm) Qty: 28 0RF bupropion HCl 75 mg tablet 75 mg PO DAILY Primary Care Provider: Yon Farnsworth Referrals: Yon Farnsworth DO [Primary Care Provider] - 3-5 Days Activity Restrictions/Additional Instructions: EKG normal. Chest x-ray normal. Labs initial troponin negative. Blood pressure elevated. Take your blood pressure medicines and monitor. Follow-up with her PCP. Symptoms return or worsens, return to ED for reevaluation. Print Language: Khmer Disposition Disposition: Home, Self Care Discharge Date/Time: 11/21/24 22:35
[2024-11-21 22:37] LABS: Reflex Troponin-HS? (from REC) Y
== END 2024-11-21 22:35 | disposition home or self-care (01) ==
PROVIDERS: Emergency Provider Emergency Medicine; PCP Student in an Organized Health Care Education/Training Program; Visit Provider Emergency Medicine
DX: R07.9 Chest pain, unspecified (principal); R00.2 Palpitations; F32.A Depression, unspecified; I10 Essential (primary) hypertension; F17.210 Nicotine dependence, cigarettes, uncomplicated; Z79.899 Other long term (current) drug therapy
CPT/HCPCS: 71045; 80048; 84484; 85025; 93005; 99284; A4216